=== PATIENT | male | born 1985 | race Caucasian/White ===

== ENCOUNTER 2018-07-14 01:46 | Inpatient (IN) | payer OTHER ==
[~2018-07-14] VITALS: Ht 182.9 cm; Wt 53.5 kg
[~2018-07-14 01:46] MED LIST: NOCURR
[2018-07-14] MEDS ORDERED: BUSP10TA23 PO (02:00)
[2018-07-14] MEDS ORDERED: OLAN10TA3 PO (02:00)
[2018-07-14] MEDS ORDERED: A20IH1 IH (02:00)
[2018-07-14] MEDS ORDERED: 0.9% SODIUM CHLORIDE 5 ML NEB SOLUTION NEB ONE (02:08)
[2018-07-14] MEDS ORDERED: MethylPREDNISolone SOD SUCC 125 MG/2 ML VIAL IVP ONE (02:15)
[2018-07-14] MEDS ORDERED: ALBUTEROL SULFATE 2.5 MG/0.5 ML NEB SOLUTION NEB ONE (02:15)
[2018-07-14] MEDS ORDERED: IPRATROPIUM BROMIDE 0.5 MG/2.5 ML NEB SOLUTION NEB ONE (02:15)
[2018-07-14 02:40] LABS: BASOPHILS % (AUTO) 0.5 % (0.0-2.0); EOSINOPHILS % (AUTO) 1.6 % (1.0-6.0); HEMATOCRIT 43.6 % (41-53); HEMOGLOBIN 14.6 g/dL (13.5-17.5); LYMPHOCYTES # (AUTO) 2.4 K/uL (1.0-4.8); LYMPHOCYTES % (AUTO) 30.4 % (22.0-44.0); MEAN CORPUSCULAR HEMOGLOBIN 33.8 pg (26.0-34.0); MEAN CORPUSCULAR HGB CONC 33.6 G/dL (31.0-37.0); MEAN CORPUSCULAR VOLUME 101 fL (80-100); MONOCYTES # (AUTO) 0.5 K/uL (0.1-1.0); NEUTROPHILS # (AUTO) 4.8 K/uL (1.8-7.7); NEUTROPHILS % (AUTO) 61.5 % (40.0-70.0); PLATELET COUNT (AUTO) 344 K/uL (150-450); RED BLOOD CELL COUNT(AUTO) 4.33 MIL/uL (4.50-5.90); RED CELL DISTRIBUTION WIDTH 13.8 % (11.5-14.5)
[2018-07-14 02:50] LABS: ANION GAP 9 mmol/L (8-16); CALCIUM, TOTAL 8.9 mg/dL (8.8-10.5); CARBON DIOXIDE 31 mmol/L (22-29); CHLORIDE 102 mmol/L (98-107); CREATININE 0.84 mg/dL (0.60-1.30); GLOMERULAR FILTR. RATE CALC > 60 mL/min (>60); GLUCOSE,RANDOM 139 mg/dL (70-110); POTASSIUM 3.4 mmol/L (3.5-5.1); SODIUM SERUM 142 mmol/L (136-145); UREA NITROGEN, BLOOD 10 mg/dL (7-18)
[2018-07-14 02:56] LABS: ALANINE AMINOTRANSFERASE 71 U/L (12-78); ALKALINE PHOSPHATASE 153 U/L (46-116); ASPARTATE AMINOTRANSFERASE 61 U/L (15-37); BILIRUBIN,TOTAL 0.4 mg/dL (0.1-1.0); TOTAL PROTEIN, SERUM 7.3 g/dL (6.4-8.2)
[2018-07-14 03:00] LABS: B-TYPE NATRIURETIC PEPTIDE 25 pg/mL (0-100)
[2018-07-14] MEDS ORDERED: LORazepam 2 MG/ML VIAL IVP ONE (03:00)
[2018-07-14 03:03] LABS: INFLUENZA TYPE A NEGATIVE FOR TYPE A (NEGATIVE); INFLUENZA TYPE B NEGATIVE FOR TYPE B (NEGATIVE)
[2018-07-14 03:11] LABS: APPEARANCE,URINE CLEAR (CLEAR); BILIRUBIN,URINE NEGATIVE (NEGATIVE); GLUCOSE, URINE (UA) NEGATIVE (NEGATIVE); KETONES,URINE NEGATIVE (NEGATIVE); LEUKOCYTE ESTERASE ,URINE NEGATIVE (NEGATIVE); NITRATE,URINE NEGATIVE (NEGATIVE); OCCULT BLOOD,URINE NEGATIVE (NEGATIVE); PH,URINE 6.5 (5.0-8.0); PROTEIN,URINE NEGATIVE (NEGATIVE); UROBILINOGEN,URINE 0.2 mg/dL (<=1.0)
[2018-07-14] MEDS ORDERED: ACETAMINOPHEN 325 MG TABLET PO PRN ×2 (03:15→13:45)
[2018-07-14] MEDS ORDERED: 0.9% SODIUM CHLORIDE 10 ML SYRINGE IVP PRN (03:15)
[2018-07-14] MEDS ORDERED: ONDANSETRON HCL 4 MG/2 ML VIAL IVP PRN ×2 (03:15→13:45)
[2018-07-14] MEDS ORDERED: POTASSIUM CHLORIDE 10% 40 MEQ/30 ML LIQUID UDCUP PO ONE ×2 (03:15→13:30)
[2018-07-14 03:39] LABS: AMPHET/METH SCREEN,URINE POSITIVE (NEGATIVE); BARBITURATE SCREEN, URINE POSITIVE (NEGATIVE); BENZODIAZEPINES SCREEN,URINE NEGATIVE (NEGATIVE); CANNABINOID SCREEN,URINE NEGATIVE (NEGATIVE); COCAINE SCREEN,URINE NEGATIVE (NEGATIVE); METHADONE SCREEN, URINE NEGATIVE (NEGATIVE); OPIATE SCREEN,URINE NEGATIVE (NEGATIVE)
[2018-07-14 03:40] LABS: PHENCYCLIDINE SCREEN,URINE NEGATIVE (NEGATIVE)
[2018-07-14 04:00] LABS: BACTERIA,URINE None Seen /HPF (None Seen); RBC,URINE 0-2 /HPF (0-2); SQUAMOUS EPITHELIAL CELL,UR Rare /LPF (None Seen); WBC,URINE 0-2 /HPF (0-5)
[2018-07-14 05:26] VITALS: BP 144/96
[2018-07-14] MEDS: ALBUTEROL SULFATE 2.5 MG/0.5 ML NEB SOLUTION NEB SCH ×4 (07:00→20:00)
[2018-07-14] MEDS: IPRATROPIUM BROMIDE 0.5 MG/2.5 ML NEB SOLUTION NEB SCH ×4 (07:00→20:00)
[2018-07-14 08:00] VITALS: BP 155/99
[2018-07-14] MEDS ORDERED: OXYGEN THERAPY IH SCH (08:00)
[2018-07-14] MEDS: BusPIRone HCL 10 MG TABLET PO SCH ×2 (10:26→20:36)
[2018-07-14 11:53] VITALS: BP 180/100
[2018-07-14] MEDS ORDERED: MAGNESIUM SULFATE 2 GM, MVI, ADULT NO.1 WITH VIT K 10 ML, THIAMINE HCL 100 MG, FOLIC AC... IV SCH ×5 (12:30)
[2018-07-14] MEDS: ChlordiazePOXIDE HCL 25 MG CAPSULE PO SCH ×3 (13:00→20:36)
[2018-07-14] MEDS: CloNIDine HCL 0.2 MG TABLET PO SCH ×3 (13:00→20:36)
[2018-07-14] MEDS ORDERED: HYDROCODONE/ACETAMINOPHEN 5-325 MG TABLET PO PRN (13:45)
[2018-07-14 14:15] LABS: INR 0.9 (0.9-1.1); PROTHROMBIN TIME 9.6 SEC (9.4-11.6)
[2018-07-14 14:18] LABS: ALANINE AMINOTRANSFERASE 81 U/L (12-78); ALKALINE PHOSPHATASE 160 U/L (46-116); ANION GAP 7 mmol/L (8-16); ASPARTATE AMINOTRANSFERASE 64 U/L (15-37); BILIRUBIN,TOTAL 0.6 mg/dL (0.1-1.0); CALCIUM, TOTAL 9.4 mg/dL (8.8-10.5); CARBON DIOXIDE 30 mmol/L (22-29); CHLORIDE 99 mmol/L (98-107); CREATININE 0.89 mg/dL (0.60-1.30); GLOMERULAR FILTR. RATE CALC > 60 mL/min (>60); GLUCOSE,RANDOM 170 mg/dL (70-110); POTASSIUM 4.5 mmol/L (3.5-5.1); SODIUM SERUM 136 mmol/L (136-145); TOTAL PROTEIN, SERUM 7.8 g/dL (6.4-8.2); UREA NITROGEN, BLOOD 9 mg/dL (7-18)
[2018-07-14 14:24] LABS: BASOPHILS % (AUTO) 0.1 % (0.0-2.0); EOSINOPHILS % (AUTO) 0 % (1.0-6.0); HEMATOCRIT 43.3 % (41-53); HEMOGLOBIN 14.6 g/dL (13.5-17.5); LYMPHOCYTES # (AUTO) 0.2 K/uL (1.0-4.8); LYMPHOCYTES % (AUTO) 2.7 % (22.0-44.0); MEAN CORPUSCULAR HEMOGLOBIN 34.1 pg (26.0-34.0); MEAN CORPUSCULAR HGB CONC 33.8 G/dL (31.0-37.0); MEAN CORPUSCULAR VOLUME 101 fL (80-100); MONOCYTES # (AUTO) 0.1 K/uL (0.1-1.0); MONOCYTES % (AUTO) 1.5 % (2.0-9.0); NEUTROPHILS # (AUTO) 5.9 K/uL (1.8-7.7); NEUTROPHILS % (AUTO) 95.7 % (40.0-70.0); PLATELET COUNT (AUTO) 316 K/uL (150-450); RED BLOOD CELL COUNT(AUTO) 4.29 MIL/uL (4.50-5.90); RED CELL DISTRIBUTION WIDTH 13.6 % (11.5-14.5)
[2018-07-14] MEDS: ENOXAPARIN SODIUM 30 MG/0.3 ML PF SYRINGE SQ SCH (14:44)
[2018-07-14] MEDS: LISINOPRIL 5 MG TABLET PO SCH (14:44)
[2018-07-14] MEDS: METOPROLOL TARTRATE 25 MG TABLET PO SCH ×2 (14:44→20:36)
[2018-07-14] MEDS: FAMOTIDINE 20 MG TABLET PO SCH (14:44)
[2018-07-14 16:08] VITALS: BP 158/101
[2018-07-14] MEDS: VERAPAMIL HCL 80 MG TABLET PO SCH ×2 (16:23→20:36)
[2018-07-14 18:34] VITALS: BP 139/99
[2018-07-14 20:08] VITALS: BP 124/78
[2018-07-14] MEDS: OLANZapine 10 MG TABLET PO SCH (20:36)
[2018-07-15 00:49] VITALS: BP 121/72
[2018-07-15] MEDS: IPRATROPIUM BROMIDE 0.5 MG/2.5 ML NEB SOLUTION NEB SCH ×4 (01:53→20:00)
[2018-07-15] MEDS: ALBUTEROL SULFATE 2.5 MG/0.5 ML NEB SOLUTION NEB SCH ×4 (01:53→20:00)
[2018-07-15 03:41] VITALS: BP 107/65
[2018-07-15 07:46] VITALS: BP 140/72
[2018-07-15] MEDS: LISINOPRIL 5 MG TABLET PO SCH (08:10)
[2018-07-15] MEDS: CloNIDine HCL 0.2 MG TABLET PO SCH ×3 (08:10→20:04)
[2018-07-15] MEDS: METOPROLOL TARTRATE 25 MG TABLET PO SCH ×2 (08:10→20:04)
[2018-07-15] MEDS: VERAPAMIL HCL 80 MG TABLET PO SCH ×2 (08:10→16:00)
[2018-07-15] MEDS: ChlordiazePOXIDE HCL 25 MG CAPSULE PO SCH ×4 (08:10→20:04)
[2018-07-15] MEDS: FAMOTIDINE 20 MG TABLET PO SCH (08:10)
[2018-07-15] MEDS: BusPIRone HCL 10 MG TABLET PO SCH ×2 (08:10→20:04)
[2018-07-15] MEDS: ENOXAPARIN SODIUM 30 MG/0.3 ML PF SYRINGE SQ SCH (08:11)
[2018-07-15 11:51] VITALS: BP 111/75
[2018-07-15 16:56] VITALS: BP 124/80
[2018-07-15 19:10] VITALS: BP 126/79
[2018-07-15] MEDS: OLANZapine 10 MG TABLET PO SCH (20:04)
[2018-07-16 00:10] VITALS: BP 115/70
[2018-07-16] MEDS: VERAPAMIL HCL 80 MG TABLET PO SCH ×2 (00:15→09:03)
[2018-07-16] MEDS: IPRATROPIUM BROMIDE 0.5 MG/2.5 ML NEB SOLUTION NEB SCH ×3 (02:00→14:00)
[2018-07-16] MEDS: ALBUTEROL SULFATE 2.5 MG/0.5 ML NEB SOLUTION NEB SCH ×3 (02:00→14:00)
[2018-07-16 04:18] VITALS: BP 107/70
[2018-07-16 08:09] VITALS: BP 133/90
[2018-07-16] MEDS: FAMOTIDINE 20 MG TABLET PO SCH (09:04)
[2018-07-16] MEDS: ChlordiazePOXIDE HCL 25 MG CAPSULE PO SCH ×2 (09:04→13:15)
[2018-07-16] MEDS: LISINOPRIL 5 MG TABLET PO SCH (09:04)
[2018-07-16] MEDS: CloNIDine HCL 0.2 MG TABLET PO SCH (09:04)
[2018-07-16] MEDS: METOPROLOL TARTRATE 25 MG TABLET PO SCH (09:05)
[2018-07-16] MEDS: ENOXAPARIN SODIUM 30 MG/0.3 ML PF SYRINGE SQ SCH (09:05)
[2018-07-16] MEDS: BusPIRone HCL 10 MG TABLET PO SCH (09:07)
[2018-07-16 11:50] VITALS: BP 101/58
== END 2018-07-16 13:25 | disposition left against medical advice (07) | DRG 140 ==
LOC: EMS 01:46 → 5N 03:03
PROVIDERS: ADMIT Internal Medicine; ATTEND Internal Medicine
PROC: 5A09357 Assistance with Respiratory Ventilation, Less than 24 Consecutive Hours, Continuous Positive Airway Pressure (ICD-10-PCS; principal; 2018-07-14)
DX: J44.1 Chronic obstructive pulmonary disease with (acute) exacerbation (principal); F25.9 Schizoaffective disorder, unspecified; K70.30 Alcoholic cirrhosis of liver without ascites; I47.1 Supraventricular tachycardia; F10.239 Alcohol dependence with withdrawal, unspecified; F19.10 Other psychoactive substance abuse, uncomplicated; E87.6 Hypokalemia; F17.210 Nicotine dependence, cigarettes, uncomplicated; F31.9 Bipolar disorder, unspecified; F41.9 Anxiety disorder, unspecified; I10 Essential (primary) hypertension; Z59.0 Homelessness; Z91.19 Patient's noncompliance with other medical treatment and regimen; Z88.8 Allergy status to other drugs, medicaments and biological substances
CPT/HCPCS: 87040; 87081; 87804; 93005; 94640; 96374; 96375; G0378; G0480; J1650; J2060; J2930; J3411; J3475; J3490; J7030

== ENCOUNTER 2018-08-01 12:14 | Inpatient (IN) | payer MEDICAID, OTHER ==
[~2018-08-01] VITALS: Ht 175.3 cm; Wt 55.8 kg
[~2018-08-01 12:14] MED LIST changes: +A20IH1 IH; +BUSP10TA23 PO; -NOCURR; +OLAN10TA3 PO
[2018-08-01] MEDS ORDERED: LORazepam 2 MG/ML VIAL IM ONE (14:00)
[2018-08-01 14:41] LABS: BASOPHILS % (AUTO) 0.4 % (0.0-2.0); EOSINOPHILS % (AUTO) 1.1 % (1.0-6.0); HEMATOCRIT 42.1 % (41-53); HEMOGLOBIN 14.1 g/dL (13.5-17.5); LYMPHOCYTES % (AUTO) 9.9 % (22.0-44.0); MEAN CORPUSCULAR HEMOGLOBIN 33.5 pg (26.0-34.0); MEAN CORPUSCULAR HGB CONC 33.5 G/dL (31.0-37.0); MEAN CORPUSCULAR VOLUME 100 fL (80-100); MONOCYTES # (AUTO) 0.8 K/uL (0.1-1.0); MONOCYTES % (AUTO) 7.5 % (2.0-9.0); NEUTROPHILS # (AUTO) 8.4 K/uL (1.8-7.7); NEUTROPHILS % (AUTO) 81.1 % (40.0-70.0); PLATELET COUNT (AUTO) 318 K/uL (150-450); RED CELL DISTRIBUTION WIDTH 14.1 % (11.5-14.5)
[2018-08-01 14:43] LABS: ANION GAP 10 mmol/L (8-16); CALCIUM, TOTAL 8.5 mg/dL (8.8-10.5); CARBON DIOXIDE 28 mmol/L (22-29); CHLORIDE 105 mmol/L (98-107); CREATININE 0.69 mg/dL (0.60-1.30); GLOMERULAR FILTR. RATE CALC > 60 mL/min (>60); GLUCOSE,RANDOM 86 mg/dL (70-110); POTASSIUM 3.5 mmol/L (3.5-5.1); SODIUM SERUM 143 mmol/L (136-145); UREA NITROGEN, BLOOD 8 mg/dL (7-18)
[2018-08-01 14:51] LABS: ALANINE AMINOTRANSFERASE 90 U/L (12-78); ALBUMIN 3.6 g/dL (3.4-5.0); ALKALINE PHOSPHATASE 156 U/L (46-116); ASPARTATE AMINOTRANSFERASE 79 U/L (15-37); BILIRUBIN,TOTAL 0.5 mg/dL (0.1-1.0); TOTAL PROTEIN, SERUM 7.1 g/dL (6.4-8.2)
[2018-08-01 17:00] VITALS: BP 173/116
[2018-08-01] MEDS ORDERED: PNEUMOCOCCAL VACCINE POLYVALENT 0.5 ML VIAL [PPSV23] IM ONE (18:00)
[2018-08-01 18:02] VITALS: BP 144/109
[2018-08-01] MEDS: LORazepam 2 MG TABLET PO PRN (18:33)
[2018-08-01] MEDS: OLANZapine 5 MG RAPDIS TABLET PO PRN (18:33)
[2018-08-01] MEDS ORDERED: ALBUTEROL SULFATE 2.5 MG/0.5 ML NEB SOLUTION NEB PRN (19:00)
[2018-08-01] MEDS ORDERED: HYDROCORTISONE 2.5% 30 GM CREAM TP PRN (19:00)
[2018-08-01] MEDS ORDERED: ALBUTEROL SULFATE HFA 90 MCG/PUFF 8 GM INHALER IH PRN (19:00)
[2018-08-01 19:09] VITALS: BP 157/110
[2018-08-01] MEDS ORDERED: HydrALAZINE HCL 10 MG TABLET PO PRN (19:15)
[2018-08-01] MEDS: CloNIDine HCL 0.1 MG TABLET PO PRN (19:58)
[2018-08-01 20:15] VITALS: BP 171/118
[2018-08-01 21:00] VITALS: BP 184/107
[2018-08-01] MEDS: ZOLPIDEM TARTRATE 10 MG TABLET PO PRN (21:09)
[2018-08-01 22:02] VITALS: BP 165/109
[2018-08-02] VITALS (8 sets, daily range): BP systolic 136–167; BP diastolic 92–123
[2018-08-02] MEDS: LORazepam 2 MG TABLET PO PRN ×3 (06:18→20:59)
[2018-08-02 08:55] LABS: BASOPHILS % (AUTO) 0.9 % (0.0-2.0); EOSINOPHILS % (AUTO) 0.8 % (1.0-6.0); HEMATOCRIT 45.7 % (41-53); HEMOGLOBIN 15.4 g/dL (13.5-17.5); LYMPHOCYTES # (AUTO) 0.7 K/uL (1.0-4.8); LYMPHOCYTES % (AUTO) 9.4 % (22.0-44.0); MEAN CORPUSCULAR HEMOGLOBIN 34.1 pg (26.0-34.0); MEAN CORPUSCULAR HGB CONC 33.7 G/dL (31.0-37.0); MEAN CORPUSCULAR VOLUME 101 fL (80-100); MONOCYTES # (AUTO) 0.7 K/uL (0.1-1.0); NEUTROPHILS # (AUTO) 6.1 K/uL (1.8-7.7); NEUTROPHILS % (AUTO) 79.9 % (40.0-70.0); PLATELET COUNT (AUTO) 309 K/uL (150-450); RED BLOOD CELL COUNT(AUTO) 4.52 MIL/uL (4.50-5.90); RED CELL DISTRIBUTION WIDTH 13.9 % (11.5-14.5)
[2018-08-02 09:17] LABS: ALANINE AMINOTRANSFERASE 79 U/L (12-78); ALBUMIN 3.5 g/dL (3.4-5.0); ALKALINE PHOSPHATASE 177 U/L (46-116); ANION GAP 10 mmol/L (8-16); ASPARTATE AMINOTRANSFERASE 64 U/L (15-37); BILIRUBIN,TOTAL 1.2 mg/dL (0.1-1.0); CALCIUM, TOTAL 9.2 mg/dL (8.8-10.5); CARBON DIOXIDE 29 mmol/L (22-29); CHLORIDE 100 mmol/L (98-107); CHOL/HDL RATIO 1.6 (4.2-7.3); CHOLESTEROL 173 mg/dL (131-200); CREATININE 0.86 mg/dL (0.60-1.30); GLOMERULAR FILTR. RATE CALC > 60 mL/min (>60); GLUCOSE,RANDOM 152 mg/dL (70-110); HDL CHOLESTEROL 105 mg/dL (40-60); LDL CHOL (CALC.) 59 mg/dL (0-130); POTASSIUM 3.4 mmol/L (3.5-5.1); SODIUM SERUM 139 mmol/L (136-145); TOTAL PROTEIN, SERUM 7.2 g/dL (6.4-8.2); TRIGLYCERIDES 45 mg/dL (15-150); UREA NITROGEN, BLOOD 14 mg/dL (7-18)
[2018-08-02] MEDS: HydrALAZINE HCL 25 MG TABLET PO PRN ×2 (12:22→19:57)
[2018-08-02] MEDS ORDERED: AmLODIPine BESYLATE 5 MG TABLET PO ONE (14:00)
[2018-08-02] MEDS: METOPROLOL TARTRATE 25 MG TABLET PO SCH (16:20)
[2018-08-02] MEDS: BusPIRone HCL 10 MG TABLET PO SCH (16:20)
[2018-08-02] MEDS: CloNIDine HCL 0.1 MG TABLET PO PRN (16:21)
[2018-08-02] MEDS: OLANZapine 10 MG TABLET PO SCH (20:59)
[2018-08-02] MEDS: ZOLPIDEM TARTRATE 10 MG TABLET PO PRN (20:59)
[2018-08-03 06:06] VITALS: BP 142/91
[2018-08-03 06:07] VITALS: BP 142/91
[2018-08-03 08:24] VITALS: BP 144/79
[2018-08-03 08:25] VITALS: BP 144/79
[2018-08-03 08:39] LABS: ANION GAP 11 mmol/L (8-16); CALCIUM, TOTAL 9.7 mg/dL (8.8-10.5); CARBON DIOXIDE 27 mmol/L (22-29); CHLORIDE 100 mmol/L (98-107); CREATINE KINASE, TOTAL ONLY 186 U/L (39-308); CREATININE 0.73 mg/dL (0.60-1.30); FREE T4 (FREE THYROXINE) 0.76 ng/dL (0.76-1.46); GLOMERULAR FILTR. RATE CALC > 60 mL/min (>60); GLUCOSE,RANDOM 87 mg/dL (70-110); POTASSIUM 5.1 mmol/L (3.5-5.1); SODIUM SERUM 138 mmol/L (136-145); UREA NITROGEN, BLOOD 15 mg/dL (7-18)
[2018-08-03] MEDS: AmLODIPine BESYLATE 5 MG TABLET PO SCH (08:47)
[2018-08-03] MEDS: BusPIRone HCL 10 MG TABLET PO SCH ×2 (08:47→16:47)
[2018-08-03] MEDS: METOPROLOL TARTRATE 25 MG TABLET PO SCH ×2 (08:47→16:47)
[2018-08-03 16:00] VITALS: BP 134/90
[2018-08-03 16:08] VITALS: BP 134/90
[2018-08-03] MEDS: LORazepam 2 MG TABLET PO PRN (16:47)
[2018-08-03] MEDS: OLANZapine 10 MG TABLET PO SCH (20:46)
[2018-08-03] MEDS: ZOLPIDEM TARTRATE 10 MG TABLET PO PRN (20:46)
[2018-08-04 06:45] VITALS: BP 111/77
[2018-08-04 08:27] VITALS: BP 131/75
[2018-08-04] MEDS: THIAMINE HCL 100 MG TABLET PO SCH (08:52)
[2018-08-04] MEDS: BusPIRone HCL 10 MG TABLET PO SCH ×2 (08:52→17:11)
[2018-08-04] MEDS: FOLIC ACID 1 MG TABLET PO SCH (08:52)
[2018-08-04] MEDS: AmLODIPine BESYLATE 5 MG TABLET PO SCH (08:52)
[2018-08-04] MEDS: METOPROLOL TARTRATE 25 MG TABLET PO SCH ×2 (08:52→17:11)
[2018-08-04] MEDS: MULTIVITAMINS WITH MINERALS, THERAPEUTIC TABLET PO SCH (08:53)
[2018-08-04 09:10] VITALS: BP 126/94
[2018-08-04] MEDS: LORazepam 2 MG TABLET PO PRN (14:31)
[2018-08-04 16:33] VITALS: BP 139/89
[2018-08-04 16:35] VITALS: BP 139/89
[2018-08-04] MEDS: OLANZapine 5 MG RAPDIS TABLET PO PRN (17:11)
[2018-08-04] MEDS: OLANZapine 10 MG TABLET PO SCH (21:08)
[2018-08-04] MEDS: ZOLPIDEM TARTRATE 10 MG TABLET PO PRN (21:08)
[2018-08-05 08:02] VITALS: BP 139/83
[2018-08-05] MEDS: FOLIC ACID 1 MG TABLET PO SCH (09:07)
[2018-08-05] MEDS: BusPIRone HCL 10 MG TABLET PO SCH ×2 (09:07→17:03)
[2018-08-05] MEDS: AmLODIPine BESYLATE 5 MG TABLET PO SCH (09:08)
[2018-08-05] MEDS: THIAMINE HCL 100 MG TABLET PO SCH (09:08)
[2018-08-05] MEDS: MULTIVITAMINS WITH MINERALS, THERAPEUTIC TABLET PO SCH (09:08)
[2018-08-05] MEDS: METOPROLOL TARTRATE 25 MG TABLET PO SCH ×2 (09:08→17:03)
[2018-08-05 09:46] VITALS: BP 139/83
[2018-08-05] MEDS: LORazepam 2 MG TABLET PO PRN (13:58)
[2018-08-05 16:00] VITALS: BP 138/97
[2018-08-05 17:00] VITALS: BP 138/97
[2018-08-05] MEDS: OLANZapine 5 MG RAPDIS TABLET PO PRN (17:04)
[2018-08-05] MEDS: OLANZapine 10 MG TABLET PO SCH (20:10)
[2018-08-05] MEDS: ZOLPIDEM TARTRATE 10 MG TABLET PO PRN (20:10)
[2018-08-06 06:09] VITALS: BP 123/89
[2018-08-06 09:04] VITALS: BP 126/82
[2018-08-06 09:11] VITALS: BP 126/82
[2018-08-06] MEDS: BusPIRone HCL 10 MG TABLET PO SCH ×2 (09:26→17:15)
[2018-08-06] MEDS: FOLIC ACID 1 MG TABLET PO SCH (09:27)
[2018-08-06] MEDS: MULTIVITAMINS WITH MINERALS, THERAPEUTIC TABLET PO SCH (09:27)
[2018-08-06] MEDS: METOPROLOL TARTRATE 25 MG TABLET PO SCH ×2 (09:27→16:19)
[2018-08-06] MEDS: THIAMINE HCL 100 MG TABLET PO SCH (09:27)
[2018-08-06] MEDS: AmLODIPine BESYLATE 5 MG TABLET PO SCH (09:27)
[2018-08-06 16:00] VITALS: BP 133/88
[2018-08-06] MEDS: OLANZapine 10 MG TABLET PO SCH (22:01)
[2018-08-06] MEDS: ZOLPIDEM TARTRATE 10 MG TABLET PO PRN (22:01)
[2018-08-07 06:22] VITALS: BP 123/89
[2018-08-07] MEDS: THIAMINE HCL 100 MG TABLET PO SCH (08:43)
[2018-08-07] MEDS: BusPIRone HCL 10 MG TABLET PO SCH ×2 (08:43→16:51)
[2018-08-07] MEDS: AmLODIPine BESYLATE 5 MG TABLET PO SCH (08:43)
[2018-08-07] MEDS: MULTIVITAMINS WITH MINERALS, THERAPEUTIC TABLET PO SCH (08:44)
[2018-08-07] MEDS: FOLIC ACID 1 MG TABLET PO SCH (08:44)
[2018-08-07] MEDS: METOPROLOL TARTRATE 25 MG TABLET PO SCH ×2 (08:45→16:51)
[2018-08-07 09:35] VITALS: BP 115/61
[2018-08-07 16:00] VITALS: BP 108/80
[2018-08-07] MEDS: LORazepam 2 MG TABLET PO PRN (16:51)
[2018-08-07] MEDS: OLANZapine 10 MG TABLET PO SCH (21:15)
[2018-08-07] MEDS: ZOLPIDEM TARTRATE 10 MG TABLET PO PRN (21:15)
[2018-08-08] MEDS: LORazepam 2 MG TABLET PO PRN ×2 (01:14→17:00)
[2018-08-08 01:15] VITALS: BP 122/70
[2018-08-08] MEDS: METOPROLOL TARTRATE 25 MG TABLET PO SCH ×2 (09:21→17:00)
[2018-08-08] MEDS: THIAMINE HCL 100 MG TABLET PO SCH (09:21)
[2018-08-08] MEDS: BusPIRone HCL 10 MG TABLET PO SCH ×2 (09:22→17:00)
[2018-08-08] MEDS: AmLODIPine BESYLATE 5 MG TABLET PO SCH (09:22)
[2018-08-08] MEDS: FOLIC ACID 1 MG TABLET PO SCH (09:22)
[2018-08-08] MEDS: MULTIVITAMINS WITH MINERALS, THERAPEUTIC TABLET PO SCH (09:22)
[2018-08-08 09:55] VITALS: BP 125/77
[2018-08-08 16:00] VITALS: BP 121/90
[2018-08-08] MEDS: ZOLPIDEM TARTRATE 10 MG TABLET PO PRN (20:49)
[2018-08-08] MEDS: OLANZapine 10 MG TABLET PO SCH (20:50)
[2018-08-09 06:03] VITALS: BP 124/86
[2018-08-09 09:29] VITALS: BP 126/89
[2018-08-09] MEDS: BusPIRone HCL 10 MG TABLET PO SCH ×2 (09:50→16:55)
[2018-08-09] MEDS: METOPROLOL TARTRATE 25 MG TABLET PO SCH ×2 (09:50→16:55)
[2018-08-09] MEDS: FOLIC ACID 1 MG TABLET PO SCH (09:50)
[2018-08-09] MEDS: MULTIVITAMINS WITH MINERALS, THERAPEUTIC TABLET PO SCH (09:51)
[2018-08-09] MEDS: AmLODIPine BESYLATE 5 MG TABLET PO SCH (09:51)
[2018-08-09] MEDS: THIAMINE HCL 100 MG TABLET PO SCH (09:51)
[2018-08-09] MEDS: OLANZapine 5 MG RAPDIS TABLET PO PRN (14:35)
[2018-08-09] MEDS: LORazepam 2 MG TABLET PO PRN (14:35)
[2018-08-09 16:48] VITALS: BP 119/71
[2018-08-09] MEDS: OLANZapine 10 MG TABLET PO SCH (20:44)
[2018-08-09] MEDS: PANTOPRAZOLE SODIUM 40 MG DR TABLET PO SCH (20:44)
[2018-08-09] MEDS: ZOLPIDEM TARTRATE 10 MG TABLET PO PRN (20:45)
[2018-08-10 00:25] VITALS: BP 128/85
[2018-08-10 08:19] VITALS: BP 112/67
[2018-08-10] MEDS: PANTOPRAZOLE SODIUM 40 MG DR TABLET PO SCH (09:17)
[2018-08-10] MEDS: METOPROLOL TARTRATE 25 MG TABLET PO SCH ×2 (09:17→16:44)
[2018-08-10] MEDS: THIAMINE HCL 100 MG TABLET PO SCH (09:17)
[2018-08-10] MEDS: MULTIVITAMINS WITH MINERALS, THERAPEUTIC TABLET PO SCH (09:17)
[2018-08-10] MEDS: AmLODIPine BESYLATE 5 MG TABLET PO SCH (09:17)
[2018-08-10] MEDS: FOLIC ACID 1 MG TABLET PO SCH (09:17)
[2018-08-10] MEDS: BusPIRone HCL 10 MG TABLET PO SCH ×2 (09:17→16:44)
[2018-08-10] MEDS: LORazepam 2 MG TABLET PO PRN ×2 (11:26→21:36)
[2018-08-10 17:34] VITALS: BP 122/75
[2018-08-10] MEDS ORDERED: IBUPROFEN 600 MG TABLET PO PRN (20:30)
[2018-08-10] MEDS ORDERED: ACETAMINOPHEN 325 MG TABLET PO PRN (20:30)
[2018-08-10] MEDS: OLANZapine 10 MG TABLET PO SCH (20:46)
[2018-08-10] MEDS: ZOLPIDEM TARTRATE 10 MG TABLET PO PRN (23:54)
[2018-08-11 00:05] VITALS: BP 109/74
[2018-08-11 08:00] VITALS: BP 133/74
[2018-08-11] MEDS: FOLIC ACID 1 MG TABLET PO SCH (09:17)
[2018-08-11] MEDS: METOPROLOL TARTRATE 25 MG TABLET PO SCH ×2 (09:17→16:57)
[2018-08-11] MEDS: BusPIRone HCL 10 MG TABLET PO SCH ×2 (09:17→16:57)
[2018-08-11] MEDS: AmLODIPine BESYLATE 5 MG TABLET PO SCH (09:17)
[2018-08-11] MEDS: MULTIVITAMINS WITH MINERALS, THERAPEUTIC TABLET PO SCH (09:17)
[2018-08-11] MEDS: PANTOPRAZOLE SODIUM 40 MG DR TABLET PO SCH (09:17)
[2018-08-11] MEDS: THIAMINE HCL 100 MG TABLET PO SCH (09:22)
[2018-08-11] MEDS: LORazepam 2 MG TABLET PO PRN ×2 (10:34→17:57)
[2018-08-11 16:33] VITALS: BP 117/69
[2018-08-11] MEDS: OLANZapine 10 MG TABLET PO SCH (20:38)
[2018-08-11] MEDS: ZOLPIDEM TARTRATE 10 MG TABLET PO PRN (21:24)
[2018-08-12 00:20] VITALS: BP 109/73
[2018-08-12] MEDS: LORazepam 2 MG TABLET PO PRN (00:21)
[2018-08-12] MEDS: AmLODIPine BESYLATE 5 MG TABLET PO SCH (08:18)
[2018-08-12] MEDS: MULTIVITAMINS WITH MINERALS, THERAPEUTIC TABLET PO SCH (08:18)
[2018-08-12] MEDS: PANTOPRAZOLE SODIUM 40 MG DR TABLET PO SCH (08:18)
[2018-08-12] MEDS: BusPIRone HCL 10 MG TABLET PO SCH ×2 (08:18→16:23)
[2018-08-12] MEDS: THIAMINE HCL 100 MG TABLET PO SCH (08:18)
[2018-08-12] MEDS: FOLIC ACID 1 MG TABLET PO SCH (08:18)
[2018-08-12] MEDS: METOPROLOL TARTRATE 25 MG TABLET PO SCH ×2 (08:19→16:24)
[2018-08-12 09:27] VITALS: BP 116/73
[2018-08-12 17:02] VITALS: BP 143/97
[2018-08-12] MEDS: OLANZapine 10 MG TABLET PO SCH (20:17)
[2018-08-12] MEDS: ZOLPIDEM TARTRATE 10 MG TABLET PO PRN (20:32)
[2018-08-13] MEDS ORDERED: FOLI1TAB15 PO (01:36)
[2018-08-13] MEDS ORDERED: AMLO-511 PO (01:39)
[2018-08-13] MEDS ORDERED: METO25 PO (01:39)
[2018-08-13] MEDS ORDERED: PANT40TA25 PO (01:42)
[2018-08-13] MEDS ORDERED: THIA100T67 PO (01:44)
[2018-08-13] MEDS ORDERED: MULT-1203 PO (01:44)
[2018-08-13 05:24] VITALS: BP 118/81
== END 2018-08-13 07:15 | disposition home or self-care (01) | DRG 750 ==
LOC: EMS 12:14 → B3A 15:49
PROVIDERS: ADMIT Psychiatry & Neurology Psychiatry; ATTEND Psychiatry & Neurology Psychiatry
DX: F20.0 Paranoid schizophrenia (principal); M41.9 Scoliosis, unspecified; R45.851 Suicidal ideations; F15.90 Other stimulant use, unspecified, uncomplicated; J45.909 Unspecified asthma, uncomplicated; L30.9 Dermatitis, unspecified; Y90.7 Blood alcohol level of 200-239 mg/100 ml; M54.9 Dorsalgia, unspecified; Z87.891 Personal history of nicotine dependence; Z88.8 Allergy status to other drugs, medicaments and biological substances
CPT/HCPCS: 80074; 84439; 84443; 87081; G0480; J2060; J3535

== ENCOUNTER 2018-09-17 12:10 | Emergency (ER) | payer OTHER ==
[~2018-09-17] VITALS: Ht 172.7 cm; Wt 59.0 kg
[~2018-09-17 12:10] MED LIST changes: +AMLO-511 PO; +FOLI1TAB15 PO; +METO25 PO; +MULT-1203 PO; +PANT40TA25 PO; +PRED20 PO; +THIA100T67 PO; +[UNRECOGNIZED DRUG - CODE] PO
[2018-09-17] MEDS ORDERED: GUAIF600 PO (12:23)
[2018-09-17] MEDS ORDERED: LORazepam 2 MG/ML VIAL IVP ONE ×2 (12:30→12:45)
[2018-09-17] MEDS ORDERED: ALBUTEROL SULFATE 5 MG/ML 20 ML NEB SOLN [BULK] NEB ONE (12:30)
[2018-09-17] MEDS ORDERED: MethylPREDNISolone SOD SUCC 125 MG/2 ML VIAL IVP ONE (12:30)
[2018-09-17] MEDS ORDERED: IPRATROPIUM BROMIDE 0.5 MG/2.5 ML NEB SOLUTION NEB ONE (12:30)
[2018-09-17 12:53] LABS: BASOPHILS % (AUTO) 0.3 % (0.0-2.0); EOSINOPHILS % (AUTO) 2.1 % (1.0-6.0); HEMATOCRIT 45.9 % (41-53); HEMOGLOBIN 15.3 g/dL (13.5-17.5); LYMPHOCYTES # (AUTO) 1.9 K/uL (1.0-4.8); LYMPHOCYTES % (AUTO) 18.3 % (22.0-44.0); MEAN CORPUSCULAR HGB CONC 33.3 G/dL (31.0-37.0); MEAN CORPUSCULAR VOLUME 99 fL (80-100); MONOCYTES # (AUTO) 0.6 K/uL (0.1-1.0); MONOCYTES % (AUTO) 6.3 % (2.0-9.0); NEUTROPHILS # (AUTO) 7.4 K/uL (1.8-7.7); PLATELET COUNT (AUTO) 288 K/uL (150-450); RED BLOOD CELL COUNT(AUTO) 4.64 MIL/uL (4.50-5.90); RED CELL DISTRIBUTION WIDTH 13.9 % (11.5-14.5)
[2018-09-17 13:03] LABS: ANION GAP 7 mmol/L (8-16); CALCIUM, TOTAL 8.4 mg/dL (8.8-10.5); CARBON DIOXIDE 30 mmol/L (22-29); CHLORIDE 105 mmol/L (98-107); GLOMERULAR FILTR. RATE CALC > 60 mL/min (>60); GLUCOSE,RANDOM 73 mg/dL (70-110); POTASSIUM 3.8 mmol/L (3.5-5.1); SODIUM SERUM 142 mmol/L (136-145); UREA NITROGEN, BLOOD 15 mg/dL (7-18)
[2018-09-17 13:10] LABS: ALANINE AMINOTRANSFERASE 168 U/L (12-78); ALBUMIN 3.1 g/dL (3.4-5.0); ALKALINE PHOSPHATASE 103 U/L (46-116); ASPARTATE AMINOTRANSFERASE 49 U/L (15-37); TOTAL PROTEIN, SERUM 6.6 g/dL (6.4-8.2)
[2018-09-17 13:34] LABS: AMPHET/METH SCREEN,URINE NEGATIVE (NEGATIVE); BARBITURATE SCREEN, URINE NEGATIVE (NEGATIVE); BENZODIAZEPINES SCREEN,URINE NEGATIVE (NEGATIVE); CANNABINOID SCREEN,URINE NEGATIVE (NEGATIVE); COCAINE SCREEN,URINE NEGATIVE (NEGATIVE); METHADONE SCREEN, URINE NEGATIVE (NEGATIVE); OPIATE SCREEN,URINE NEGATIVE (NEGATIVE)
[2018-09-17 13:35] LABS: PHENCYCLIDINE SCREEN,URINE NEGATIVE (NEGATIVE)
[2018-09-17] MEDS ORDERED: ALBUTEROL SULFATE HFA 90 MCG/PUFF 8 GM INHALER IH ONE (14:00)
[2018-09-17 14:30] VITALS: BP 120/69
== END 2018-09-17 14:38 | disposition home or self-care (01) ==
LOC: EMS 12:10
DX: J44.1 Chronic obstructive pulmonary disease with (acute) exacerbation (principal); F10.229 Alcohol dependence with intoxication, unspecified; K70.30 Alcoholic cirrhosis of liver without ascites; F20.9 Schizophrenia, unspecified; I10 Essential (primary) hypertension; F15.90 Other stimulant use, unspecified, uncomplicated; F17.210 Nicotine dependence, cigarettes, uncomplicated; Z88.8 Allergy status to other drugs, medicaments and biological substances; Z88.5 Allergy status to narcotic agent; Z79.899 Other long term (current) drug therapy; Y90.2 Blood alcohol level of 40-59 mg/100 ml
CPT/HCPCS: 36415; 71045; 80053; 80307; 85025; 94640; 94644; 96374; 96375; 99285; 99406; G0480; J2060; J2930; 94060; J3535

== ENCOUNTER 2019-04-18 18:38 | Inpatient (IN) | payer OTHER ==
[~2019-04-18] VITALS: Ht 177.8 cm; Wt 55.7 kg
[~2019-04-18 18:38] MED LIST changes: -A20IH1 IH; +A20IH1 NEB; -AMLO-511 PO; -FOLI1TAB15 PO; -METO25 PO; -OLAN10TA3 PO; -PANT40TA25 PO; -PRED20 PO; -THIA100T67 PO; -[UNRECOGNIZED DRUG - CODE] PO
[2019-04-18] MEDS ORDERED: MethylPREDNISolone SOD SUCC 125 MG/2 ML VIAL IVP ONE (19:00)
[2019-04-18] MEDS ORDERED: ALBUTEROL SULFATE 5 MG/ML 20 ML NEB SOLN [BULK] NEB ONE (19:00)
[2019-04-18] MEDS ORDERED: SODIUM CHLORIDE 0.9% 1,000 ML IV ONE (19:00)
[2019-04-18] MEDS ORDERED: IPRATROPIUM BROMIDE 0.5 MG/2.5 ML NEB SOLUTION NEB ONE (19:00)
[2019-04-18 19:26] LABS: BASOPHILS % (AUTO) 0.2 % (0.0-2.0); EOSINOPHILS % (AUTO) 1.4 % (1.0-6.0); HEMATOCRIT 46.1 % (41-53); HEMOGLOBIN 15.4 g/dL (13.5-17.5); LYMPHOCYTES % (AUTO) 14.3 % (22.0-44.0); MEAN CORPUSCULAR HEMOGLOBIN 31.8 pg (26.0-34.0); MEAN CORPUSCULAR HGB CONC 33.4 G/dL (31.0-37.0); MEAN CORPUSCULAR VOLUME 95 fL (80-100); MONOCYTES # (AUTO) 0.7 K/uL (0.1-1.0); MONOCYTES % (AUTO) 5.1 % (2.0-9.0); NEUTROPHILS # (AUTO) 11.1 K/uL (1.8-7.7); PLATELET COUNT (AUTO) 526 K/uL (150-450); RED BLOOD CELL COUNT(AUTO) 4.85 MIL/uL (4.50-5.90); RED CELL DISTRIBUTION WIDTH 13.8 % (11.5-14.5)
[2019-04-18 19:40] LABS: ANION GAP 4 mmol/L (8-16); CALCIUM, TOTAL 9.3 mg/dL (8.8-10.5); CARBON DIOXIDE 39 mmol/L (22-29); CHLORIDE 102 mmol/L (98-107); CREATININE 0.98 mg/dL (0.60-1.30); GLOMERULAR FILTR. RATE CALC > 60 mL/min (>60); GLUCOSE,RANDOM 108 mg/dL (70-110); POTASSIUM 3.4 mmol/L (3.5-5.1); SODIUM SERUM 145 mmol/L (136-145); UREA NITROGEN, BLOOD 12 mg/dL (7-18)
[2019-04-18] MEDS ORDERED: LORazepam 2 MG/ML VIAL IVP ONE (20:30)
[2019-04-18] MEDS ORDERED: ONDANSETRON HCL 4 MG/2 ML VIAL IVP PRN (20:30)
[2019-04-18] MEDS ORDERED: ACETAMINOPHEN 325 MG TABLET PO PRN (20:30)
[2019-04-18] MEDS ORDERED: ALBUTEROL SULFATE 2.5 MG/0.5 ML NEB SOLUTION NEB SCH (23:00)
[2019-04-18] MEDS ORDERED: IPRATROPIUM BROMIDE 0.5 MG/2.5 ML NEB SOLUTION NEB SCH (23:00)
[2019-04-19 00:05] VITALS: BP 145/98
[2019-04-19] MEDS ORDERED: 0.9% SODIUM CHLORIDE 10 ML SYRINGE IVP PRN (01:45)
[2019-04-19] MEDS ORDERED: ALBUTEROL SULFATE 2.5 MG/0.5 ML NEB SOLUTION NEB PRN (01:45)
[2019-04-19] MEDS ORDERED: MAGNESIUM HYDROXIDE SUSPENSION 30 ML UDCUP PO PRN (01:45)
[2019-04-19] MEDS ORDERED: -PHARMACY VACCINE NOTE- MISC ONE (02:00)
[2019-04-19] MEDS ORDERED: POTASSIUM CHLORIDE 20 MEQ ER TABLET PO PRN (02:15)
[2019-04-19] MEDS ORDERED: POTASSIUM CHL 10 MEQ/WATER 50 ML IV PRN (02:15)
[2019-04-19] MEDS ORDERED: VANCOMYCIN HCL 1 GM/D5% WATER 200 ML IV ONE (02:15)
[2019-04-19] MEDS ORDERED: SODIUM CHLORIDE 0.9% 250 ML IV ONE (02:39)
[2019-04-19] MEDS: ACETAMINOPHEN 325 MG TABLET PO PRN (03:18)
[2019-04-19] MEDS: IPRATROPIUM BROMIDE 0.5 MG/2.5 ML NEB SOLUTION NEB SCH ×7 (03:18→22:48)
[2019-04-19] MEDS: ONDANSETRON HCL 4 MG/2 ML VIAL IVP PRN (03:18)
[2019-04-19] MEDS: ALBUTEROL SULFATE 2.5 MG/0.5 ML NEB SOLUTION NEB SCH ×7 (03:19→22:48)
[2019-04-19] MEDS ORDERED: PIPERACILLIN SODIUM/TAZOBACTAM 4.5 GM in DEXTROSE 5%-WATER 100 ML IV SCH (04:00)
[2019-04-19 04:54] VITALS: BP 141/92
[2019-04-19 06:14] LABS: AMPHET/METH SCREEN,URINE NEGATIVE (NEGATIVE); BARBITURATE SCREEN, URINE NEGATIVE (NEGATIVE); BENZODIAZEPINES SCREEN,URINE POSITIVE (NEGATIVE); CANNABINOID SCREEN,URINE NEGATIVE (NEGATIVE); COCAINE SCREEN,URINE NEGATIVE (NEGATIVE); METHADONE SCREEN, URINE NEGATIVE (NEGATIVE); OPIATE SCREEN,URINE NEGATIVE (NEGATIVE)
[2019-04-19 06:15] LABS: PHENCYCLIDINE SCREEN,URINE NEGATIVE (NEGATIVE)
[2019-04-19 07:35] VITALS: BP 136/88
[2019-04-19] MEDS: DOCUSATE SODIUM 100 MG CAPSULE PO SCH ×3 (08:31→20:55)
[2019-04-19] MEDS: BusPIRone HCL 10 MG TABLET PO SCH ×2 (08:31→20:46)
[2019-04-19] MEDS: FAMOTIDINE 10 MG/ML 2 ML VIAL IVP SCH (08:32)
[2019-04-19] MEDS: PIPERACILLIN/TAZO 3.375 GM/D5W 50 ML IV SCH ×3 (11:39→23:26)
[2019-04-19 12:15] VITALS: BP 135/105
[2019-04-19] MEDS: LORazepam 2 MG/ML VIAL IVP PRN (15:49)
[2019-04-19] MEDS: VANCOMYCIN HCL 750 MG in DEXTROSE 5%-WATER 250 ML IV SCH (15:57)
[2019-04-19 16:15] VITALS: BP 137/94
[2019-04-19] MEDS: MethylPREDNISolone SOD SUCC 125 MG/2 ML VIAL IVP SCH (17:34)
[2019-04-19 19:39] VITALS: BP 122/81
[2019-04-20] VITALS (7 sets, daily range): BP systolic 122–146; BP diastolic 82–100
[2019-04-20] MEDS: MethylPREDNISolone SOD SUCC 125 MG/2 ML VIAL IVP SCH ×4 (00:34→18:38)
[2019-04-20] MEDS: VANCOMYCIN HCL 750 MG in DEXTROSE 5%-WATER 250 ML IV SCH ×3 (00:34→16:20)
[2019-04-20] MEDS: IPRATROPIUM BROMIDE 0.5 MG/2.5 ML NEB SOLUTION NEB SCH ×10 (02:00→22:57)
[2019-04-20] MEDS: ALBUTEROL SULFATE 2.5 MG/0.5 ML NEB SOLUTION NEB SCH ×10 (02:00→22:57)
[2019-04-20 05:07] LABS: HIV 1-2 SCREEN 4TH GEN W/RFLX Non Reactive (Non Reactive)
[2019-04-20] MEDS: PIPERACILLIN/TAZO 3.375 GM/D5W 50 ML IV SCH ×3 (06:01→18:38)
[2019-04-20 07:15] LABS: HEMATOCRIT 46.3 % (41-53); HEMOGLOBIN 15.1 g/dL (13.5-17.5); MEAN CORPUSCULAR HEMOGLOBIN 31.3 pg (26.0-34.0); MEAN CORPUSCULAR HGB CONC 32.6 G/dL (31.0-37.0); MEAN CORPUSCULAR VOLUME 96 fL (80-100); PLATELET COUNT (AUTO) 560 K/uL (150-450); RED BLOOD CELL COUNT(AUTO) 4.82 MIL/uL (4.50-5.90); RED CELL DISTRIBUTION WIDTH 13.9 % (11.5-14.5)
[2019-04-20 07:31] LABS: ANION GAP 6 mmol/L (8-16); CALCIUM, TOTAL 8.9 mg/dL (8.8-10.5); CARBON DIOXIDE 35 mmol/L (22-29); CHLORIDE 101 mmol/L (98-107); CREATININE 0.84 mg/dL (0.60-1.30); GLOMERULAR FILTR. RATE CALC > 60 mL/min (>60); GLUCOSE,RANDOM 168 mg/dL (70-110); POTASSIUM 4.1 mmol/L (3.5-5.1); SODIUM SERUM 142 mmol/L (136-145); UREA NITROGEN, BLOOD 19 mg/dL (7-18)
[2019-04-20] MEDS: FAMOTIDINE 10 MG/ML 2 ML VIAL IVP SCH (08:27)
[2019-04-20] MEDS: DOCUSATE SODIUM 100 MG CAPSULE PO SCH ×2 (08:27→19:56)
[2019-04-20] MEDS: BusPIRone HCL 10 MG TABLET PO SCH ×2 (08:28→19:55)
[2019-04-20 10:17] LABS: BAND NEUTROPHILS % (MANUAL) 1 % (0-5); LYMPHOCYTES % (MANUAL) 4 % (22-44); SEGMENTED NEUTROPHILS % 95 % (40-70)
[2019-04-20] MEDS: ACETAMINOPHEN 325 MG TABLET PO PRN (13:25)
[2019-04-20] MEDS: LORazepam 2 MG/ML VIAL IVP PRN (16:19)
[2019-04-20] MEDS: OxyCODONE HCL/ACETAMINOPHEN 5-325 MG TABLET PO PRN ×2 (17:02→21:15)
[2019-04-20] MEDS ORDERED: HYDROmorphone 2 MG/ML SYRINGE IVP ONE (19:30)
[2019-04-20 20:16] LABS: LIPASE 119 U/L (73-393)
[2019-04-21] MEDS: MethylPREDNISolone SOD SUCC 125 MG/2 ML VIAL IVP SCH ×3 (00:07→12:33)
[2019-04-21] MEDS: PIPERACILLIN/TAZO 3.375 GM/D5W 50 ML IV SCH ×5 (00:08→23:19)
[2019-04-21] MEDS: VANCOMYCIN HCL 750 MG in DEXTROSE 5%-WATER 250 ML IV SCH ×4 (00:49→23:20)
[2019-04-21] MEDS: LORazepam 2 MG/ML VIAL IVP PRN ×2 (00:50→17:55)
[2019-04-21 01:20] LABS: APPEARANCE,URINE CLEAR (CLEAR); BILIRUBIN,URINE NEGATIVE (NEGATIVE); GLUCOSE, URINE (UA) NEGATIVE (NEGATIVE); KETONES,URINE NEGATIVE (NEGATIVE); LEUKOCYTE ESTERASE ,URINE NEGATIVE (NEGATIVE); NITRATE,URINE NEGATIVE (NEGATIVE); OCCULT BLOOD,URINE NEGATIVE (NEGATIVE); PH,URINE 6.5 (5.0-8.0); PROTEIN,URINE NEGATIVE (NEGATIVE); UROBILINOGEN,URINE 0.2 mg/dL (<=1.0)
[2019-04-21] MEDS: ALBUTEROL SULFATE 2.5 MG/0.5 ML NEB SOLUTION NEB SCH ×7 (02:00→22:54)
[2019-04-21] MEDS: IPRATROPIUM BROMIDE 0.5 MG/2.5 ML NEB SOLUTION NEB SCH ×7 (02:00→22:54)
[2019-04-21] MEDS: OxyCODONE HCL/ACETAMINOPHEN 5-325 MG TABLET PO PRN ×4 (04:00→20:24)
[2019-04-21 05:16] VITALS: BP 138/88
[2019-04-21 07:09] LABS: ANION GAP 5 mmol/L (8-16); CALCIUM, TOTAL 8.6 mg/dL (8.8-10.5); CARBON DIOXIDE 34 mmol/L (22-29); CHLORIDE 102 mmol/L (98-107); CREATININE 0.87 mg/dL (0.60-1.30); GLOMERULAR FILTR. RATE CALC > 60 mL/min (>60); GLUCOSE,RANDOM 153 mg/dL (70-110); POTASSIUM 4.1 mmol/L (3.5-5.1); SODIUM SERUM 141 mmol/L (136-145); UREA NITROGEN, BLOOD 22 mg/dL (7-18)
[2019-04-21 07:42] VITALS: BP 135/92
[2019-04-21] MEDS: BusPIRone HCL 10 MG TABLET PO SCH ×2 (08:33→20:24)
[2019-04-21] MEDS: FAMOTIDINE 10 MG/ML 2 ML VIAL IVP SCH (08:33)
[2019-04-21] MEDS: DOCUSATE SODIUM 100 MG CAPSULE PO SCH ×2 (08:34→20:28)
[2019-04-21] MEDS ORDERED: SODIUM CHLORIDE 0.9% 100 ML ONE (12:31)
[2019-04-21] MEDS: ONDANSETRON HCL 4 MG/2 ML VIAL IVP PRN (12:33)
[2019-04-21 17:03] VITALS: BP 129/61
[2019-04-21] MEDS: MethylPREDNISolone SOD SUCC 40 MG/ML VIAL IVP SCH ×2 (17:55→23:21)
[2019-04-21 20:15] VITALS: BP 125/74
[2019-04-21 23:40] VITALS: BP 122/75
[2019-04-22] MEDS: LORazepam 2 MG/ML VIAL IVP PRN ×3 (00:49→21:59)
[2019-04-22] MEDS: IPRATROPIUM BROMIDE 0.5 MG/2.5 ML NEB SOLUTION NEB SCH ×6 (03:00→23:00)
[2019-04-22] MEDS: ALBUTEROL SULFATE 2.5 MG/0.5 ML NEB SOLUTION NEB SCH ×6 (03:00→23:00)
[2019-04-22 04:33] VITALS: BP 129/77
[2019-04-22] MEDS: OxyCODONE HCL/ACETAMINOPHEN 5-325 MG TABLET PO PRN ×3 (05:00→20:11)
[2019-04-22] MEDS: MethylPREDNISolone SOD SUCC 40 MG/ML VIAL IVP SCH ×3 (05:01→17:50)
[2019-04-22] MEDS: PIPERACILLIN/TAZO 3.375 GM/D5W 50 ML IV SCH ×4 (05:01→23:13)
[2019-04-22] MEDS ORDERED: SODIUM CHLORIDE 0.9% 500 ML IV ONE (05:07)
[2019-04-22 07:01] LABS: ANION GAP 6 mmol/L (8-16); CALCIUM, TOTAL 8.9 mg/dL (8.8-10.5); CARBON DIOXIDE 35 mmol/L (22-29); CHLORIDE 100 mmol/L (98-107); CREATININE 0.85 mg/dL (0.60-1.30); GLOMERULAR FILTR. RATE CALC > 60 mL/min (>60); GLUCOSE,RANDOM 95 mg/dL (70-110); POTASSIUM 4.2 mmol/L (3.5-5.1); SODIUM SERUM 141 mmol/L (136-145); UREA NITROGEN, BLOOD 19 mg/dL (7-18)
[2019-04-22 07:35] VITALS: BP 131/108
[2019-04-22] MEDS: VANCOMYCIN HCL 750 MG in DEXTROSE 5%-WATER 250 ML IV SCH ×2 (08:44→16:41)
[2019-04-22] MEDS: DOCUSATE SODIUM 100 MG CAPSULE PO SCH ×2 (08:45→20:17)
[2019-04-22] MEDS: BusPIRone HCL 10 MG TABLET PO SCH ×2 (08:45→20:10)
[2019-04-22] MEDS: FAMOTIDINE 10 MG/ML 2 ML VIAL IVP SCH (08:46)
[2019-04-22 09:18] LABS: BASOPHILS % (AUTO) 0.1 % (0.0-2.0); EOSINOPHILS % (AUTO) 0 % (1.0-6.0); HEMATOCRIT 44.4 % (41-53); HEMOGLOBIN 14.5 g/dL (13.5-17.5); LYMPHOCYTES # (AUTO) 0.3 K/uL (1.0-4.8); LYMPHOCYTES % (AUTO) 1.6 % (22.0-44.0); MEAN CORPUSCULAR HEMOGLOBIN 31.2 pg (26.0-34.0); MEAN CORPUSCULAR HGB CONC 32.7 G/dL (31.0-37.0); MEAN CORPUSCULAR VOLUME 96 fL (80-100); MONOCYTES # (AUTO) 0.5 K/uL (0.1-1.0); MONOCYTES % (AUTO) 3.1 % (2.0-9.0); NEUTROPHILS # (AUTO) 16.8 K/uL (1.8-7.7); PLATELET COUNT (AUTO) 509 K/uL (150-450); RED BLOOD CELL COUNT(AUTO) 4.65 MIL/uL (4.50-5.90); RED CELL DISTRIBUTION WIDTH 14.2 % (11.5-14.5)
[2019-04-22 09:19] LABS: NEUTROPHILS % (AUTO) 95.2 % (40.0-70.0)
[2019-04-22 11:35] VITALS: BP 147/98
[2019-04-22 16:07] VITALS: BP 136/81
[2019-04-22 20:04] VITALS: BP 134/115
[2019-04-23 00:16] VITALS: BP 146/84
[2019-04-23 00:20] VITALS: BP 143/69
[2019-04-23] MEDS: VANCOMYCIN HCL 750 MG in DEXTROSE 5%-WATER 250 ML IV SCH ×3 (00:23→15:16)
[2019-04-23] MEDS: MethylPREDNISolone SOD SUCC 40 MG/ML VIAL IVP SCH ×2 (02:22→08:29)
[2019-04-23] MEDS: OxyCODONE HCL/ACETAMINOPHEN 5-325 MG TABLET PO PRN ×2 (02:22→08:38)
[2019-04-23] MEDS: ALBUTEROL SULFATE 2.5 MG/0.5 ML NEB SOLUTION NEB SCH ×4 (03:04→14:58)
[2019-04-23] MEDS: IPRATROPIUM BROMIDE 0.5 MG/2.5 ML NEB SOLUTION NEB SCH ×4 (03:04→14:57)
[2019-04-23 04:12] VITALS: BP 132/101
[2019-04-23 05:23] LABS: ANION GAP 7 mmol/L (8-16); CALCIUM, TOTAL 8.1 mg/dL (8.8-10.5); CARBON DIOXIDE 32 mmol/L (22-29); CHLORIDE 100 mmol/L (98-107); CREATININE 1.15 mg/dL (0.60-1.30); GLOMERULAR FILTR. RATE CALC > 60 mL/min (>60); GLUCOSE,RANDOM 163 mg/dL (70-110); POTASSIUM 4.1 mmol/L (3.5-5.1); SODIUM SERUM 139 mmol/L (136-145); UREA NITROGEN, BLOOD 26 mg/dL (7-18)
[2019-04-23] MEDS: PIPERACILLIN/TAZO 3.375 GM/D5W 50 ML IV SCH ×2 (06:50→11:53)
[2019-04-23] MEDS: LORazepam 2 MG/ML VIAL IVP PRN ×2 (06:50→15:15)
[2019-04-23 07:48] VITALS: BP 151/110
[2019-04-23] MEDS: DOCUSATE SODIUM 100 MG CAPSULE PO SCH (08:29)
[2019-04-23] MEDS: FAMOTIDINE 10 MG/ML 2 ML VIAL IVP SCH (08:29)
[2019-04-23] MEDS: BusPIRone HCL 10 MG TABLET PO SCH (08:29)
[2019-04-23] MEDS ORDERED: PredniSONE 20 MG TABLET PO SCH (10:45)
[2019-04-23 11:46] VITALS: BP 147/105
[2019-04-23] MEDS ORDERED: AUD NEB (15:01)
[2019-04-23] MEDS ORDERED: PRED10TA3 PO (15:05)
[2019-04-23] MEDS ORDERED: AMOX1TAB16 PO (15:06)
[2019-04-23 15:39] VITALS: BP 152/99
== END 2019-04-23 16:15 | disposition home or self-care (01) | DRG 139 ==
LOC: EMS 18:40 → 5N 22:00
PROVIDERS: ADMIT Internal Medicine; ATTEND Internal Medicine
DX: J18.9 Pneumonia, unspecified organism (principal); J96.91 Respiratory failure, unspecified with hypoxia; E43 Unspecified severe protein-calorie malnutrition; J44.1 Chronic obstructive pulmonary disease with (acute) exacerbation; R65.10 Systemic inflammatory response syndrome (SIRS) of non-infectious origin without acute organ dysfunction; J44.0 Chronic obstructive pulmonary disease with (acute) lower respiratory infection; F17.210 Nicotine dependence, cigarettes, uncomplicated; F20.9 Schizophrenia, unspecified; F41.9 Anxiety disorder, unspecified; F10.20 Alcohol dependence, uncomplicated; I10 Essential (primary) hypertension; F15.90 Other stimulant use, unspecified, uncomplicated; F19.10 Other psychoactive substance abuse, uncomplicated; Z68.1 Body mass index [BMI] 19.9 or less, adult; Z91.19 Patient's noncompliance with other medical treatment and regimen
CPT/HCPCS: 80307; 84132; 87040; 87081; 87389; 93005; 94640; 94644; J1170; J2060; J2405; J2543; J2920; J2930; J3370; J3490; J7030; J7040; J7050; J7060

== ENCOUNTER 2019-05-17 18:49 | Inpatient (IN) | payer OTHER ==
[~2019-05-17] VITALS: Ht 175.3 cm; Wt 51.7 kg
[~2019-05-17 18:49] MED LIST changes: +AMOX1TAB16 PO; +AUD NEB; +PRED10TA3 PO
[2019-05-17] MEDS ORDERED: IPRATROPIUM BROMIDE 0.5 MG/2.5 ML NEB SOLUTION NEB ONE (19:15)
[2019-05-17] MEDS ORDERED: ALBUTEROL SULFATE 5 MG/ML 20 ML NEB SOLN [BULK] NEB ONE (19:15)
[2019-05-17] MEDS ORDERED: 0.9% SODIUM CHLORIDE 5 ML NEB SOLUTION NEB ONE (19:19)
[2019-05-17] MEDS ORDERED: DEXAMETHASONE SOD PHOS 4 MG/ML 5 ML VIAL IM ONE (19:45)
[2019-05-17] MEDS ORDERED: AZITHROMYCIN 500 MG/NS 250 ML IV ONE (21:45)
[2019-05-17] MEDS ORDERED: ALBUTEROL SULFATE HFA 90 MCG/PUFF 8 GM INHALER IH ONE (21:45)
[2019-05-17] MEDS ORDERED: SODIUM CHLORIDE 0.9% 1,000 ML IV ONE (22:00)
[2019-05-17] MEDS ORDERED: MAGNESIUM SULFATE 2 GM, MVI, ADULT NO.1 WITH VIT K 10 ML, THIAMINE HCL 100 MG, FOLIC AC... IV ONE ×5 (22:00)
[2019-05-17 22:23] LABS: BASOPHILS % (AUTO) 0.3 % (0.0-2.0); EOSINOPHILS % (AUTO) 0.7 % (1.0-6.0); HEMATOCRIT 43.6 % (41-53); HEMOGLOBIN 14.7 g/dL (13.5-17.5); LYMPHOCYTES # (AUTO) 0.6 K/uL (1.0-4.8); LYMPHOCYTES % (AUTO) 5.4 % (22.0-44.0); MEAN CORPUSCULAR HEMOGLOBIN 31.7 pg (26.0-34.0); MEAN CORPUSCULAR HGB CONC 33.6 G/dL (31.0-37.0); MEAN CORPUSCULAR VOLUME 94 fL (80-100); MONOCYTES # (AUTO) 0.3 K/uL (0.1-1.0); MONOCYTES % (AUTO) 2.4 % (2.0-9.0); PLATELET COUNT (AUTO) 306 K/uL (150-450); RED BLOOD CELL COUNT(AUTO) 4.63 MIL/uL (4.50-5.90); RED CELL DISTRIBUTION WIDTH 14.3 % (11.5-14.5)
[2019-05-17 22:30] LABS: NEUTROPHILS % (AUTO) 91.2 % (40.0-70.0)
[2019-05-17 22:41] LABS: ALANINE AMINOTRANSFERASE 96 U/L (12-78); ALBUMIN 3.7 g/dL (3.4-5.0); ALKALINE PHOSPHATASE 140 U/L (46-116); ANION GAP 11 mmol/L (8-16); ASPARTATE AMINOTRANSFERASE 86 U/L (15-37); CALCIUM, TOTAL 8.3 mg/dL (8.8-10.5); CARBON DIOXIDE 30 mmol/L (22-29); CHLORIDE 101 mmol/L (98-107); CREATININE 0.99 mg/dL (0.60-1.30); GLOMERULAR FILTR. RATE CALC > 60 mL/min (>60); GLUCOSE,RANDOM 126 mg/dL (70-110); SODIUM SERUM 142 mmol/L (136-145); TOTAL PROTEIN, SERUM 6.7 g/dL (6.4-8.2); UREA NITROGEN, BLOOD 9 mg/dL (7-18)
[2019-05-18] VITALS (8 sets, daily range): BP systolic 101–155; BP diastolic 78–102
[2019-05-18] MEDS ORDERED: BISACODYL 10 MG RECTAL RECTAL SUPPOSITORY PR PRN
[2019-05-18] MEDS ORDERED: ACETAMINOPHEN 325 MG TABLET PO PRN
[2019-05-18] MEDS ORDERED: MAGNESIUM HYDROXIDE SUSPENSION 30 ML UDCUP PO PRN
[2019-05-18] MEDS ORDERED: IPRATROPIUM BROMIDE 0.5 MG/2.5 ML NEB SOLUTION NEB PRN
[2019-05-18] MEDS ORDERED: 0.9% SODIUM CHLORIDE 10 ML SYRINGE IVP PRN
[2019-05-18] MEDS ORDERED: POTASSIUM CHLORIDE 20 MEQ ER TABLET PO ONE
[2019-05-18] MEDS ORDERED: ONDANSETRON HCL 4 MG/2 ML VIAL IVP PRN ×2
[2019-05-18] MEDS ORDERED: ALBUTEROL SULFATE 2.5 MG/0.5 ML NEB SOLUTION NEB PRN
[2019-05-18] MEDS ORDERED: MAGNESIUM SULFATE 2 GM, MVI, ADULT NO.1 WITH VIT K 10 ML, THIAMINE HCL 100 MG, FOLIC AC... IV ONE ×5
[2019-05-18] MEDS: MethylPREDNISolone SOD SUCC 125 MG/2 ML VIAL IVP SCH ×4 (00:33→17:10)
[2019-05-18] MEDS: CefTRIAXone 1 GM/DEXTROSE 50 ML IV SCH (00:34)
[2019-05-18] MEDS: LORazepam 2 MG/ML VIAL IVP PRN ×3 (01:44→20:25)
[2019-05-18] MEDS: ALBUTEROL SULFATE 2.5 MG/0.5 ML NEB SOLUTION NEB SCH ×5 (02:41→23:00)
[2019-05-18] MEDS: IPRATROPIUM BROMIDE 0.5 MG/2.5 ML NEB SOLUTION NEB SCH ×5 (02:41→23:00)
[2019-05-18 07:17] LABS: BASOPHILS % (AUTO) 0.3 % (0.0-2.0); EOSINOPHILS % (AUTO) 0 % (1.0-6.0); HEMATOCRIT 42.1 % (41-53); LYMPHOCYTES # (AUTO) 0.2 K/uL (1.0-4.8); LYMPHOCYTES % (AUTO) 7.7 % (22.0-44.0); MEAN CORPUSCULAR HEMOGLOBIN 31.6 pg (26.0-34.0); MEAN CORPUSCULAR HGB CONC 33.2 G/dL (31.0-37.0); MEAN CORPUSCULAR VOLUME 95 fL (80-100); MONOCYTES % (AUTO) 0.8 % (2.0-9.0); NEUTROPHILS # (AUTO) 2.6 K/uL (1.8-7.7); PLATELET COUNT (AUTO) 301 K/uL (150-450); RED BLOOD CELL COUNT(AUTO) 4.42 MIL/uL (4.50-5.90); RED CELL DISTRIBUTION WIDTH 14.4 % (11.5-14.5)
[2019-05-18 07:19] LABS: NEUTROPHILS % (AUTO) 91.2 % (40.0-70.0)
[2019-05-18 07:29] LABS: ANION GAP 11 mmol/L (8-16); CALCIUM, TOTAL 8.3 mg/dL (8.8-10.5); CARBON DIOXIDE 25 mmol/L (22-29); CHLORIDE 106 mmol/L (98-107); CREATININE 0.93 mg/dL (0.60-1.30); GLOMERULAR FILTR. RATE CALC > 60 mL/min (>60); GLUCOSE,RANDOM 198 mg/dL (70-110); POTASSIUM 3.9 mmol/L (3.5-5.1); SODIUM SERUM 142 mmol/L (136-145); UREA NITROGEN, BLOOD 5 mg/dL (7-18)
[2019-05-18] MEDS: DOCUSATE SODIUM 100 MG CAPSULE PO SCH ×2 (08:28→20:23)
[2019-05-18] MEDS: PANTOPRAZOLE SODIUM 40 MG DR TABLET PO SCH (08:28)
[2019-05-18] MEDS: BusPIRone HCL 10 MG TABLET PO SCH ×2 (08:28→20:23)
[2019-05-18] MEDS: BENZONATATE 100 MG CAPSULE PO SCH ×3 (08:28→20:24)
[2019-05-18] MEDS: GuaiFENesin SR 600 MG ER TABLET PO SCH ×2 (08:28→20:24)
[2019-05-18] MEDS: HEPARIN SODIUM,PORCINE 5,000 UNITS/ML VIAL SQ SCH ×3 (08:29→15:25)
[2019-05-18] MEDS: ACETAMINOPHEN 325 MG TABLET PO PRN (10:20)
[2019-05-18] MEDS: ZOLPIDEM TARTRATE 5 MG TABLET PO PRN (21:24)
[2019-05-19] MEDS: MethylPREDNISolone SOD SUCC 125 MG/2 ML VIAL IVP SCH ×3 (00:22→12:17)
[2019-05-19] MEDS: HEPARIN SODIUM,PORCINE 5,000 UNITS/ML VIAL SQ SCH ×4 (00:22→23:36)
[2019-05-19] MEDS: CefTRIAXone 1 GM/DEXTROSE 50 ML IV SCH (02:03)
[2019-05-19] MEDS ORDERED: SODIUM CHLORIDE 0.9% 100 ML ONE (02:08)
[2019-05-19] MEDS: IPRATROPIUM BROMIDE 0.5 MG/2.5 ML NEB SOLUTION NEB SCH ×6 (03:00→23:00)
[2019-05-19] MEDS: ALBUTEROL SULFATE 2.5 MG/0.5 ML NEB SOLUTION NEB SCH ×6 (03:00→23:00)
[2019-05-19 05:13] VITALS: BP 143/100
[2019-05-19 07:07] LABS: BASOPHILS % (AUTO) 0.1 % (0.0-2.0); EOSINOPHILS % (AUTO) 0 % (1.0-6.0); HEMATOCRIT 41.1 % (41-53); HEMOGLOBIN 13.6 g/dL (13.5-17.5); LYMPHOCYTES # (AUTO) 0.4 K/uL (1.0-4.8); LYMPHOCYTES % (AUTO) 2.4 % (22.0-44.0); MEAN CORPUSCULAR HEMOGLOBIN 31.3 pg (26.0-34.0); MEAN CORPUSCULAR HGB CONC 33.1 G/dL (31.0-37.0); MEAN CORPUSCULAR VOLUME 95 fL (80-100); MONOCYTES # (AUTO) 0.5 K/uL (0.1-1.0); MONOCYTES % (AUTO) 2.9 % (2.0-9.0); NEUTROPHILS # (AUTO) 15.8 K/uL (1.8-7.7); NEUTROPHILS % (AUTO) 94.6 % (40.0-70.0); PLATELET COUNT (AUTO) 297 K/uL (150-450); RED BLOOD CELL COUNT(AUTO) 4.34 MIL/uL (4.50-5.90); RED CELL DISTRIBUTION WIDTH 13.9 % (11.5-14.5)
[2019-05-19 07:19] VITALS: BP 143/96
[2019-05-19 07:21] LABS: AMPHET/METH SCREEN,URINE POSITIVE (NEGATIVE); BARBITURATE SCREEN, URINE NEGATIVE (NEGATIVE); BENZODIAZEPINES SCREEN,URINE NEGATIVE (NEGATIVE); CANNABINOID SCREEN,URINE POSITIVE (NEGATIVE); COCAINE SCREEN,URINE NEGATIVE (NEGATIVE); METHADONE SCREEN, URINE NEGATIVE (NEGATIVE); OPIATE SCREEN,URINE NEGATIVE (NEGATIVE); PHENCYCLIDINE SCREEN,URINE NEGATIVE (NEGATIVE)
[2019-05-19 07:33] LABS: ANION GAP 9 mmol/L (8-16); CALCIUM, TOTAL 8.8 mg/dL (8.8-10.5); CARBON DIOXIDE 30 mmol/L (22-29); CHLORIDE 103 mmol/L (98-107); CREATININE 0.65 mg/dL (0.60-1.30); GLOMERULAR FILTR. RATE CALC > 60 mL/min (>60); GLUCOSE,RANDOM 111 mg/dL (70-110); POTASSIUM 3.8 mmol/L (3.5-5.1); SODIUM SERUM 142 mmol/L (136-145); UREA NITROGEN, BLOOD 14 mg/dL (7-18)
[2019-05-19] MEDS: DOCUSATE SODIUM 100 MG CAPSULE PO SCH ×2 (08:34→20:19)
[2019-05-19] MEDS: BusPIRone HCL 10 MG TABLET PO SCH ×2 (08:37→20:21)
[2019-05-19] MEDS: PANTOPRAZOLE SODIUM 40 MG DR TABLET PO SCH (08:38)
[2019-05-19] MEDS: BENZONATATE 100 MG CAPSULE PO SCH ×3 (08:38→20:21)
[2019-05-19] MEDS: GuaiFENesin SR 600 MG ER TABLET PO SCH ×2 (08:38→20:21)
[2019-05-19] MEDS: LORazepam 2 MG/ML VIAL IVP PRN ×2 (08:40→18:21)
[2019-05-19 12:02] VITALS: BP 155/96
[2019-05-19] MEDS: ACETAMINOPHEN 325 MG TABLET PO PRN (12:18)
[2019-05-19] MEDS: FLUTICASONE/VILANTEROL 200-25 MCG/INH INHALER [14] IH SCH ×2 (12:18→12:24)
[2019-05-19 16:00] VITALS: BP 140/101
[2019-05-19] MEDS: MethylPREDNISolone SOD SUCC 40 MG/ML VIAL IVP SCH ×2 (17:11→23:36)
[2019-05-19 19:17] VITALS: BP 134/73
[2019-05-19] MEDS: ZOLPIDEM TARTRATE 5 MG TABLET PO PRN (20:21)
[2019-05-19 23:50] VITALS: BP 150/103
[2019-05-20] MEDS: CefTRIAXone 1 GM/DEXTROSE 50 ML IV SCH (01:04)
[2019-05-20] MEDS: LORazepam 2 MG/ML VIAL IVP PRN ×3 (02:11→20:42)
[2019-05-20] MEDS: ALBUTEROL SULFATE 2.5 MG/0.5 ML NEB SOLUTION NEB SCH ×6 (03:00→23:00)
[2019-05-20] MEDS: IPRATROPIUM BROMIDE 0.5 MG/2.5 ML NEB SOLUTION NEB SCH ×6 (03:00→23:00)
[2019-05-20 03:42] VITALS: BP 144/100
[2019-05-20] MEDS: MethylPREDNISolone SOD SUCC 40 MG/ML VIAL IVP SCH ×2 (05:16→20:42)
[2019-05-20 08:18] VITALS: BP 148/118
[2019-05-20] MEDS: DOCUSATE SODIUM 100 MG CAPSULE PO SCH ×2 (08:37→20:43)
[2019-05-20] MEDS: BusPIRone HCL 10 MG TABLET PO SCH ×2 (08:37→20:43)
[2019-05-20] MEDS: BENZONATATE 100 MG CAPSULE PO SCH ×3 (08:37→20:42)
[2019-05-20] MEDS: PANTOPRAZOLE SODIUM 40 MG DR TABLET PO SCH (08:37)
[2019-05-20] MEDS: GuaiFENesin SR 600 MG ER TABLET PO SCH ×2 (08:37→20:43)
[2019-05-20] MEDS: HEPARIN SODIUM,PORCINE 5,000 UNITS/ML VIAL SQ SCH ×2 (08:37→15:03)
[2019-05-20] MEDS: FLUTICASONE/VILANTEROL 200-25 MCG/INH INHALER [14] IH SCH (08:38)
[2019-05-20 09:13] LABS: EOSINOPHILS % (AUTO) 0 % (1.0-6.0); HEMATOCRIT 42.5 % (41-53); HEMOGLOBIN 13.9 g/dL (13.5-17.5); LYMPHOCYTES # (AUTO) 0.2 K/uL (1.0-4.8); LYMPHOCYTES % (AUTO) 1.8 % (22.0-44.0); MEAN CORPUSCULAR HGB CONC 32.6 G/dL (31.0-37.0); MEAN CORPUSCULAR VOLUME 95 fL (80-100); MONOCYTES # (AUTO) 0.3 K/uL (0.1-1.0); MONOCYTES % (AUTO) 2.3 % (2.0-9.0); NEUTROPHILS # (AUTO) 12.4 K/uL (1.8-7.7); PLATELET COUNT (AUTO) 284 K/uL (150-450); RED BLOOD CELL COUNT(AUTO) 4.47 MIL/uL (4.50-5.90); RED CELL DISTRIBUTION WIDTH 14.2 % (11.5-14.5)
[2019-05-20 09:36] LABS: ANION GAP 5 mmol/L (8-16); CARBON DIOXIDE 35 mmol/L (22-29); CHLORIDE 103 mmol/L (98-107); CREATININE 0.81 mg/dL (0.60-1.30); GLOMERULAR FILTR. RATE CALC > 60 mL/min (>60); GLUCOSE,RANDOM 106 mg/dL (70-110); POTASSIUM 3.7 mmol/L (3.5-5.1); SODIUM SERUM 143 mmol/L (136-145); UREA NITROGEN, BLOOD 15 mg/dL (7-18)
[2019-05-20 09:38] LABS: NEUTROPHILS % (AUTO) 95.9 % (40.0-70.0)
[2019-05-20] MEDS: CARVEDILOL 3.125 MG TABLET PO SCH (10:50)
[2019-05-20 11:11] VITALS: BP 142/94
[2019-05-20] MEDS: ACETAMINOPHEN 325 MG TABLET PO PRN ×2 (15:02→20:42)
[2019-05-20 15:42] VITALS: BP 156/98
[2019-05-20 19:48] VITALS: BP 147/89
[2019-05-20] MEDS: ZOLPIDEM TARTRATE 5 MG TABLET PO PRN (22:00)
[2019-05-21] MEDS: HEPARIN SODIUM,PORCINE 5,000 UNITS/ML VIAL SQ SCH ×2 (00:05→08:08)
[2019-05-21] MEDS: CefTRIAXone 1 GM/DEXTROSE 50 ML IV SCH (00:05)
[2019-05-21 00:28] VITALS: BP 140/91
[2019-05-21] MEDS: IPRATROPIUM BROMIDE 0.5 MG/2.5 ML NEB SOLUTION NEB SCH ×3 (03:00→11:00)
[2019-05-21] MEDS: ALBUTEROL SULFATE 2.5 MG/0.5 ML NEB SOLUTION NEB SCH ×3 (03:00→11:00)
[2019-05-21 03:41] VITALS: BP 149/94
[2019-05-21 07:08] VITALS: BP 162/100
[2019-05-21] MEDS: BusPIRone HCL 10 MG TABLET PO SCH (08:09)
[2019-05-21] MEDS: GuaiFENesin SR 600 MG ER TABLET PO SCH (08:09)
[2019-05-21] MEDS: CARVEDILOL 3.125 MG TABLET PO SCH (08:09)
[2019-05-21] MEDS: LORazepam 2 MG/ML VIAL IVP PRN (08:09)
[2019-05-21] MEDS: MethylPREDNISolone SOD SUCC 40 MG/ML VIAL IVP SCH (08:09)
[2019-05-21] MEDS: BENZONATATE 100 MG CAPSULE PO SCH (08:09)
[2019-05-21] MEDS: FLUTICASONE/VILANTEROL 200-25 MCG/INH INHALER [14] IH SCH (08:09)
[2019-05-21] MEDS: PANTOPRAZOLE SODIUM 40 MG DR TABLET PO SCH (08:09)
[2019-05-21] MEDS: DOCUSATE SODIUM 100 MG CAPSULE PO SCH (08:09)
[2019-05-21 10:40] VITALS: BP 144/116
[2019-05-21] MEDS ORDERED: BENZ100C68 PO (10:42)
[2019-05-21] MEDS ORDERED: CARV3 PO (10:42)
[2019-05-21] MEDS ORDERED: OMEP20TA2 PO (10:42)
[2019-05-21] MEDS ORDERED: ADV250 IH (10:42)
[2019-05-21] MEDS ORDERED: PRED20 PO (10:42)
[2019-05-21] MEDS ORDERED: PRED5 PO (10:42)
[2019-05-21] MEDS ORDERED: PRED10 PO (10:42)
== END 2019-05-21 12:40 | disposition home or self-care (01) | DRG 140 ==
LOC: EMS 18:49 → 5N 23:30
PROVIDERS: ADMIT Internal Medicine; ATTEND Internal Medicine
DX: J44.1 Chronic obstructive pulmonary disease with (acute) exacerbation (principal); F20.9 Schizophrenia, unspecified; Z99.81 Dependence on supplemental oxygen; I10 Essential (primary) hypertension; F17.210 Nicotine dependence, cigarettes, uncomplicated; F10.10 Alcohol abuse, uncomplicated; F15.90 Other stimulant use, unspecified, uncomplicated; Y90.9 Presence of alcohol in blood, level not specified; E87.6 Hypokalemia; F19.10 Other psychoactive substance abuse, uncomplicated; J45.901 Unspecified asthma with (acute) exacerbation; R09.02 Hypoxemia; Z91.19 Patient's noncompliance with other medical treatment and regimen; Z87.01 Personal history of pneumonia (recurrent); Z88.8 Allergy status to other drugs, medicaments and biological substances; Z88.6 Allergy status to analgesic agent
CPT/HCPCS: 87081; 94640; 94644; 96365; 96367; 96372; G0480; J0456; J0696; J1100; J1644; J2060; J2920; J2930; J3411; J3475; J3490; J7030; J7050

== ENCOUNTER 2019-11-11 12:31 | Emergency (ER) | payer OTHER ==
[~2019-11-11] VITALS: Ht 172.7 cm; Wt 48.6 kg
[~2019-11-11 12:31] MED LIST changes: +ADV250 IH; -AMOX1TAB16 PO; +BENZ100C68 PO; +CARV3 PO; +OMEP20TA2 PO; +PRED10 PO; -PRED10TA3 PO; +PRED20 PO; +PRED5 PO
[2019-11-11] MEDS: SODIUM CHLORIDE 0.9% 1,000 ML IV ONE ×2 (13:39→13:40)
[2019-11-11 13:42] LABS: BASOPHILS % (AUTO) 0.7 % (0.0-2.0); EOSINOPHILS % (AUTO) 0.9 % (1.0-6.0); HEMATOCRIT 47.7 % (41-53); HEMOGLOBIN 16.3 g/dL (13.5-17.5); LYMPHOCYTES # (AUTO) 1.9 K/uL (1.0-4.8); LYMPHOCYTES % (AUTO) 32.3 % (22.0-44.0); MEAN CORPUSCULAR HEMOGLOBIN 33.6 pg (26.0-34.0); MEAN CORPUSCULAR HGB CONC 34.1 G/dL (31.0-37.0); MEAN CORPUSCULAR VOLUME 99 fL (80-100); MONOCYTES # (AUTO) 0.5 K/uL (0.1-1.0); MONOCYTES % (AUTO) 8.7 % (2.0-9.0); NEUTROPHILS # (AUTO) 3.4 K/uL (1.8-7.7); NEUTROPHILS % (AUTO) 57.4 % (40.0-70.0); PLATELET COUNT (AUTO) 242 K/uL (150-450); RED BLOOD CELL COUNT(AUTO) 4.83 MIL/uL (4.50-5.90); RED CELL DISTRIBUTION WIDTH 14.8 % (11.5-14.5)
[2019-11-11] MEDS ORDERED: ALBUTEROL SULFATE HFA 90 MCG/PUFF 8 GM INHALER IH ONE (13:45)
[2019-11-11] MEDS ORDERED: ACETAMINOPHEN 500 MG TABLET PO ONE (13:45)
[2019-11-11 14:00] LABS: ANION GAP 7 mmol/L (8-16); CALCIUM, TOTAL 8.8 mg/dL (8.8-10.5); CARBON DIOXIDE 31 mmol/L (22-29); CHLORIDE 102 mmol/L (98-107); CREATININE 0.92 mg/dL (0.60-1.30); GLOMERULAR FILTR. RATE CALC > 60 mL/min (>60); GLUCOSE,RANDOM 89 mg/dL (70-110); POTASSIUM 3.6 mmol/L (3.5-5.1); SODIUM SERUM 140 mmol/L (136-145); UREA NITROGEN, BLOOD 8 mg/dL (7-18)
[2019-11-11 14:26] LABS: B-TYPE NATRIURETIC PEPTIDE 41 pg/mL (0-100)
[2019-11-11 14:37] LABS: ALANINE AMINOTRANSFERASE 199 U/L (12-78); ALBUMIN 3.9 g/dL (3.4-5.0); ALKALINE PHOSPHATASE 150 U/L (46-116); ASPARTATE AMINOTRANSFERASE 168 U/L (15-37); BILIRUBIN,TOTAL 1.3 mg/dL (0.1-1.0); CREATINE KINASE, TOTAL ONLY 90 U/L (39-308)
[2019-11-11 15:42] VITALS: BP 131/89
== END 2019-11-11 16:20 | disposition home or self-care (01) ==
LOC: EMS 12:35
DX: R06.02 Shortness of breath (principal); R00.2 Palpitations; F10.129 Alcohol abuse with intoxication, unspecified; J45.909 Unspecified asthma, uncomplicated; I10 Essential (primary) hypertension; F20.9 Schizophrenia, unspecified; F17.210 Nicotine dependence, cigarettes, uncomplicated; Z88.8 Allergy status to other drugs, medicaments and biological substances; Z88.5 Allergy status to narcotic agent; Y90.8 Blood alcohol level of 240 mg/100 ml or more
CPT/HCPCS: 36415; 71045; 80053; 82550; 83735; 83880; 84484; 85025; 93005; 94640; 96360; 99285; 99406; G0480; J7030; J3535

== ENCOUNTER 2019-12-24 16:51 | Emergency (ER) | payer OTHER ==
[~2019-12-24] VITALS: Ht 170.2 cm; Wt 59.1 kg
[2019-12-24] MEDS ORDERED: ACETAMINOPHEN 500 MG TABLET PO ONE (17:15)
[2019-12-24] MEDS ORDERED: ONDANSETRON HCL 4 MG/2 ML VIAL IVP ONE (17:15)
[2019-12-24] MEDS ORDERED: KETOROLAC TROMETHAMINE 30 MG/ML VIAL IVP ONE (17:15)
[2019-12-24] MEDS ORDERED: SODIUM CHLORIDE 0.9% 1,000 ML IV ONE (17:15)
[2019-12-24 17:31] LABS: BASOPHILS % (AUTO) 0.9 % (0.0-2.0); EOSINOPHILS % (AUTO) 1.1 % (1.0-6.0); HEMATOCRIT 47.1 % (41-53); LYMPHOCYTES % (AUTO) 30.8 % (22.0-44.0); MEAN CORPUSCULAR HEMOGLOBIN 33.6 pg (26.0-34.0); MEAN CORPUSCULAR HGB CONC 33.9 G/dL (31.0-37.0); MEAN CORPUSCULAR VOLUME 99 fL (80-100); MONOCYTES # (AUTO) 0.6 K/uL (0.1-1.0); NEUTROPHILS # (AUTO) 3.7 K/uL (1.8-7.7); NEUTROPHILS % (AUTO) 57.2 % (40.0-70.0); PLATELET COUNT (AUTO) 369 K/uL (150-450); RED BLOOD CELL COUNT(AUTO) 4.77 MIL/uL (4.50-5.90); RED CELL DISTRIBUTION WIDTH 13.7 % (11.5-14.5)
[2019-12-24 17:51] LABS: ANION GAP 9 mmol/L (8-16); CALCIUM, TOTAL 8.9 mg/dL (8.8-10.5); CARBON DIOXIDE 35 mmol/L (22-29); CHLORIDE 103 mmol/L (98-107); CREATININE 0.96 mg/dL (0.60-1.30); GLOMERULAR FILTR. RATE CALC > 60 mL/min (>60); GLUCOSE,RANDOM 126 mg/dL (70-110); POTASSIUM 3.3 mmol/L (3.5-5.1); SODIUM SERUM 147 mmol/L (136-145); UREA NITROGEN, BLOOD 10 mg/dL (7-18)
[2019-12-24 17:58] LABS: ALANINE AMINOTRANSFERASE 110 U/L (12-78); ALBUMIN 3.9 g/dL (3.4-5.0); ALKALINE PHOSPHATASE 125 U/L (46-116); ASPARTATE AMINOTRANSFERASE 92 U/L (15-37); BILIRUBIN,TOTAL 0.5 mg/dL (0.1-1.0); LIPASE 190 U/L (73-393); TOTAL PROTEIN, SERUM 6.8 g/dL (6.4-8.2)
[2019-12-24] MEDS ORDERED: IOVERSOL 350 MG/ML 100 ML VIAL ONE (18:02)
[2019-12-24] MEDS ORDERED: SODIUM CHLORIDE 0.9% 100 ML ONE (18:02)
[2019-12-24] MEDS ORDERED: POTASSIUM CHLORIDE 20 MEQ ER TABLET PO ONE (18:30)
[2019-12-24] MEDS ORDERED: FAMOTIDINE 10 MG/ML 2 ML VIAL IVP ONE (18:45)
[2019-12-24] MEDS ORDERED: MAG HYDROX/AL HYDROX/SIMETH 30 ML SUSP UDCUP PO ONE (18:45)
[2019-12-24 19:30] VITALS: BP 154/111
== END 2019-12-24 20:52 | disposition home or self-care (01) ==
LOC: EMS 17:03
DX: R10.32 Left lower quadrant pain (principal); I10 Essential (primary) hypertension; F17.210 Nicotine dependence, cigarettes, uncomplicated; F20.9 Schizophrenia, unspecified; Z88.8 Allergy status to other drugs, medicaments and biological substances; Z88.5 Allergy status to narcotic agent
CPT/HCPCS: 74177; 80053; 83690; 85025; 96361; 96374; 96375; 99285; 99406; G0480; J1885; J2405; J3490; J7030; J7050; Q9967

== ENCOUNTER 2020-01-26 20:43 | Emergency (ER) | payer OTHER ==
[~2020-01-26] VITALS: Ht 172.7 cm; Wt 50.0 kg
[2020-01-26] MEDS ORDERED: ALBU8HFA IH (20:54)
[2020-01-26] MEDS ORDERED: ALBUTEROL SULFATE HFA 90 MCG/PUFF 8 GM INHALER IH ONE (21:00)
[2020-01-26] MEDS ORDERED: PredniSONE 20 MG TABLET PO ONE (21:00)
[2020-01-26 21:43] VITALS: BP 134/89
== END 2020-01-26 22:00 | disposition home or self-care (01) ==
LOC: EMS 20:43
DX: J45.901 Unspecified asthma with (acute) exacerbation (principal); I10 Essential (primary) hypertension; F20.9 Schizophrenia, unspecified; Z79.899 Other long term (current) drug therapy; Z88.5 Allergy status to narcotic agent; Z88.8 Allergy status to other drugs, medicaments and biological substances
CPT/HCPCS: 94640; 99283; J7512; J3535

== ENCOUNTER 2020-02-09 19:53 | Inpatient (IN) | payer OTHER ==
[~2020-02-09] VITALS: Ht 170.2 cm; Wt 63.0 kg
[~2020-02-09 19:53] MED LIST changes: -A20IH1 NEB; -ADV250 IH; +ALBU8HFA IH; -AUD NEB; -BENZ100C68 PO; -BUSP10TA23 PO; -CARV3 PO; -MULT-1203 PO; -OMEP20TA2 PO; -PRED10 PO; -PRED20 PO; -PRED5 PO
[2020-02-09] MEDS ORDERED: KETOROLAC TROMETHAMINE 30 MG/ML VIAL IVP ONE (20:15)
[2020-02-09] MEDS ORDERED: SODIUM CHLORIDE 0.9% 1,000 ML IV ONE (20:15)
[2020-02-09 20:48] LABS: ANION GAP 9 mmol/L (8-16); CALCIUM, TOTAL 8.8 mg/dL (8.8-10.5); CARBON DIOXIDE 31 mmol/L (22-29); CHLORIDE 104 mmol/L (98-107); CREATININE 0.71 mg/dL (0.60-1.30); GLOMERULAR FILTR. RATE CALC > 60 mL/min (>60); GLUCOSE,RANDOM 98 mg/dL (70-110); POTASSIUM 3.7 mmol/L (3.5-5.1); SODIUM SERUM 144 mmol/L (136-145); UREA NITROGEN, BLOOD 9 mg/dL (7-18)
[2020-02-09 20:54] LABS: ALANINE AMINOTRANSFERASE 77 U/L (12-78); ALBUMIN 3.6 g/dL (3.4-5.0); ALKALINE PHOSPHATASE 126 U/L (46-116); ASPARTATE AMINOTRANSFERASE 81 U/L (15-37); BILIRUBIN,TOTAL 0.6 mg/dL (0.1-1.0); LIPASE 374 U/L (73-393)
[2020-02-09 20:56] LABS: BASOPHILS % (AUTO) 0.8 % (0.0-2.0); EOSINOPHILS % (AUTO) 1.1 % (1.0-6.0); HEMATOCRIT 43.1 % (41-53); HEMOGLOBIN 14.5 g/dL (13.5-17.5); LYMPHOCYTES # (AUTO) 2.2 K/uL (1.0-4.8); LYMPHOCYTES % (AUTO) 35.7 % (22.0-44.0); MEAN CORPUSCULAR HEMOGLOBIN 33.6 pg (26.0-34.0); MEAN CORPUSCULAR HGB CONC 33.6 G/dL (31.0-37.0); MEAN CORPUSCULAR VOLUME 100 fL (80-100); MONOCYTES # (AUTO) 0.6 K/uL (0.1-1.0); MONOCYTES % (AUTO) 9.3 % (2.0-9.0); NEUTROPHILS # (AUTO) 3.2 K/uL (1.8-7.7); NEUTROPHILS % (AUTO) 53.1 % (40.0-70.0); PLATELET COUNT (AUTO) 221 K/uL (150-450); RED BLOOD CELL COUNT(AUTO) 4.31 MIL/uL (4.50-5.90); RED CELL DISTRIBUTION WIDTH 14.4 % (11.5-14.5)
[2020-02-09] MEDS ORDERED: MAGNESIUM SULFATE 2 GM, MVI, ADULT NO.1 WITH VIT K 10 ML, THIAMINE 100 MG, FOLIC ACID 1... IV ONE ×5 (21:45)
[2020-02-09] MEDS ORDERED: DIAZEPAM 5 MG/ML 2 ML SYRINGE IVP PRN (21:45)
[2020-02-09] MEDS ORDERED: ACETAMINOPHEN 325 MG TABLET PO PRN (21:45)
[2020-02-09] MEDS ORDERED: ALBUTEROL SULFATE HFA 90 MCG/PUFF 8 GM INHALER IH PRN (21:45)
[2020-02-09] MEDS ORDERED: MAGNESIUM HYDROXIDE SUSPENSION 30 ML UDCUP PO PRN (21:45)
[2020-02-09] MEDS ORDERED: BISACODYL 10 MG RECTAL RECTAL SUPPOSITORY PR PRN (21:45)
[2020-02-09] MEDS ORDERED: ONDANSETRON HCL 4 MG/2 ML VIAL IVP PRN ×2 (21:45)
[2020-02-09 23:25] VITALS: BP 150/103
[2020-02-09] MEDS: ZOLPIDEM TARTRATE 5 MG TABLET PO PRN (23:41)
[2020-02-09] MEDS: ChlordiazePOXIDE HCL 10 MG CAPSULE PO SCH (23:41)
[2020-02-09] MEDS: LORazepam 2 MG/ML VIAL IVP PRN (23:41)
[2020-02-09] MEDS: HEPARIN SODIUM,PORCINE 5,000 UNITS/ML VIAL SQ SCH (23:41)
[2020-02-09] MEDS: ACETAMINOPHEN 325 MG TABLET PO PRN (23:55)
[2020-02-10] VITALS (8 sets, daily range): BP systolic 146–168; BP diastolic 96–120
[2020-02-10] MEDS ORDERED: INFLUENZA VIRUS VACCINE QVS 2020-21 (6MO+)/PF 60 MCG/0.5 ML SYRINGE IM ONE (02:00)
[2020-02-10] MEDS: LORazepam 2 MG/ML VIAL IVP PRN ×5 (04:11→20:33)
[2020-02-10] MEDS: ACETAMINOPHEN 325 MG TABLET PO PRN (04:12)
[2020-02-10 07:07] LABS: ANION GAP 9 mmol/L (8-16); CALCIUM, TOTAL 8.3 mg/dL (8.8-10.5); CARBON DIOXIDE 28 mmol/L (22-29); CHLORIDE 104 mmol/L (98-107); CREATININE 0.82 mg/dL (0.60-1.30); GLOMERULAR FILTR. RATE CALC > 60 mL/min (>60); GLUCOSE,RANDOM 92 mg/dL (70-110); PHOSPHORUS 4.2 mg/dL (2.5-4.9); POTASSIUM 3.9 mmol/L (3.5-5.1); SODIUM SERUM 141 mmol/L (136-145); UREA NITROGEN, BLOOD 7 mg/dL (7-18)
[2020-02-10 08:04] LABS: AMPHET/METH SCREEN,URINE NEGATIVE (NEGATIVE); BARBITURATE SCREEN, URINE NEGATIVE (NEGATIVE); BENZODIAZEPINES SCREEN,URINE NEGATIVE (NEGATIVE); CANNABINOID SCREEN,URINE NEGATIVE (NEGATIVE); COCAINE SCREEN,URINE NEGATIVE (NEGATIVE); METHADONE SCREEN, URINE NEGATIVE (NEGATIVE); OPIATE SCREEN,URINE NEGATIVE (NEGATIVE)
[2020-02-10 08:11] LABS: PHENCYCLIDINE SCREEN,URINE NEGATIVE (NEGATIVE)
[2020-02-10 08:31] LABS: APPEARANCE,URINE CLEAR (CLEAR); BILIRUBIN,URINE NEGATIVE (NEGATIVE); GLUCOSE, URINE (UA) NEGATIVE (NEGATIVE); KETONES,URINE NEGATIVE (NEGATIVE); LEUKOCYTE ESTERASE ,URINE NEGATIVE (NEGATIVE); NITRATE,URINE NEGATIVE (NEGATIVE); OCCULT BLOOD,URINE NEGATIVE (NEGATIVE); PH,URINE 6.5 (5.0-8.0); PROTEIN,URINE NEGATIVE (NEGATIVE)
[2020-02-10] MEDS: HEPARIN SODIUM,PORCINE 5,000 UNITS/ML VIAL SQ SCH ×2 (08:34→16:08)
[2020-02-10] MEDS: ChlordiazePOXIDE HCL 10 MG CAPSULE PO SCH ×2 (08:34→16:07)
[2020-02-10] MEDS: DOCUSATE SODIUM 100 MG CAPSULE PO SCH ×2 (08:35→19:40)
[2020-02-10] MEDS: FOLIC ACID 1 MG TABLET PO SCH (08:36)
[2020-02-10] MEDS: PANTOPRAZOLE SODIUM 40 MG DR TABLET PO SCH (08:37)
[2020-02-10] MEDS: THIAMINE 100 MG TABLET PO SCH (08:37)
[2020-02-10] MEDS: CloNIDine HCL 0.1 MG TABLET PO PRN ×2 (16:29→23:52)
[2020-02-10] MEDS: ZOLPIDEM TARTRATE 5 MG TABLET PO PRN (19:40)
[2020-02-11] MEDS: ChlordiazePOXIDE HCL 10 MG CAPSULE PO SCH ×2 (00:51→08:10)
[2020-02-11] MEDS: LORazepam 2 MG/ML VIAL IVP PRN ×3 (00:51→10:00)
[2020-02-11] MEDS: HEPARIN SODIUM,PORCINE 5,000 UNITS/ML VIAL SQ SCH ×2 (00:51→08:11)
[2020-02-11 03:48] VITALS: BP 152/100
[2020-02-11 07:02] LABS: ANION GAP 10 mmol/L (8-16); CARBON DIOXIDE 28 mmol/L (22-29); CHLORIDE 101 mmol/L (98-107); CREATININE 0.75 mg/dL (0.60-1.30); GLOMERULAR FILTR. RATE CALC > 60 mL/min (>60); GLUCOSE,RANDOM 96 mg/dL (70-110); SODIUM SERUM 139 mmol/L (136-145); UREA NITROGEN, BLOOD 10 mg/dL (7-18)
[2020-02-11 07:40] VITALS: BP 146/89
[2020-02-11] MEDS: PANTOPRAZOLE SODIUM 40 MG DR TABLET PO SCH (08:10)
[2020-02-11] MEDS: DOCUSATE SODIUM 100 MG CAPSULE PO SCH ×2 (08:10→08:15)
[2020-02-11] MEDS: FOLIC ACID 1 MG TABLET PO SCH (08:10)
[2020-02-11] MEDS: THIAMINE 100 MG TABLET PO SCH (08:10)
[2020-02-11] MEDS ORDERED: LIB10 PO (11:19)
[2020-02-11] MEDS ORDERED: THIA100T80 PO (11:19)
== END 2020-02-11 15:10 | disposition home or self-care (01) | DRG 52 ==
LOC: EMS 19:55 → 6N 21:38
PROVIDERS: ADMIT Internal Medicine; ATTEND Internal Medicine
DX: G92 Toxic encephalopathy (principal); F10.231 Alcohol dependence with withdrawal delirium; I10 Essential (primary) hypertension; J44.9 Chronic obstructive pulmonary disease, unspecified; R25.1 Tremor, unspecified; Z88.8 Allergy status to other drugs, medicaments and biological substances; Z88.6 Allergy status to analgesic agent; F20.9 Schizophrenia, unspecified; Z87.01 Personal history of pneumonia (recurrent); Y90.9 Presence of alcohol in blood, level not specified
CPT/HCPCS: 83735; 84100; 90686; G0480; J1644; J1885; J2060; J2405; J3411; J3475; J3490; J7030

== ENCOUNTER 2020-02-18 15:32 | Emergency (ER) | payer OTHER ==
[~2020-02-18] VITALS: Ht 172.7 cm; Wt 52.3 kg
[~2020-02-18 15:32] MED LIST changes: +LIB10 PO; +THIA100T80 PO
[2020-02-18] MEDS ORDERED: LORazepam 1 MG TABLET PO ONE (16:30)
[2020-02-18] MEDS ORDERED: MAGNESIUM SULFATE 2 GM, MVI, ADULT NO.1 WITH VIT K 10 ML, THIAMINE 100 MG, FOLIC ACID 1... IV ONE ×5 (16:30)
[2020-02-18 16:58] LABS: EOSINOPHILS % (AUTO) 2.8 % (1.0-6.0); HEMATOCRIT 47.1 % (41-53); HEMOGLOBIN 15.7 g/dL (13.5-17.5); LYMPHOCYTES # (AUTO) 2.3 K/uL (1.0-4.8); LYMPHOCYTES % (AUTO) 46.7 % (22.0-44.0); MEAN CORPUSCULAR HEMOGLOBIN 34.2 pg (26.0-34.0); MEAN CORPUSCULAR HGB CONC 33.2 G/dL (31.0-37.0); MEAN CORPUSCULAR VOLUME 103 fL (80-100); MONOCYTES # (AUTO) 0.5 K/uL (0.1-1.0); MONOCYTES % (AUTO) 9.8 % (2.0-9.0); NEUTROPHILS # (AUTO) 1.9 K/uL (1.8-7.7); NEUTROPHILS % (AUTO) 39.7 % (40.0-70.0); PLATELET COUNT (AUTO) 346 K/uL (150-450); RED BLOOD CELL COUNT(AUTO) 4.58 MIL/uL (4.50-5.90); RED CELL DISTRIBUTION WIDTH 14.5 % (11.5-14.5)
[2020-02-18 17:04] LABS: ANION GAP 4 mmol/L (8-16); CALCIUM, TOTAL 8.9 mg/dL (8.8-10.5); CARBON DIOXIDE 37 mmol/L (22-29); CHLORIDE 103 mmol/L (98-107); CREATININE 0.79 mg/dL (0.60-1.30); GLOMERULAR FILTR. RATE CALC > 60 mL/min (>60); GLUCOSE,RANDOM 92 mg/dL (70-110); POTASSIUM 4.7 mmol/L (3.5-5.1); SODIUM SERUM 144 mmol/L (136-145); UREA NITROGEN, BLOOD 10 mg/dL (7-18)
[2020-02-18 17:09] LABS: ALANINE AMINOTRANSFERASE 112 U/L (12-78); ALKALINE PHOSPHATASE 142 U/L (46-116); ASPARTATE AMINOTRANSFERASE 83 U/L (15-37); BILIRUBIN,TOTAL 0.5 mg/dL (0.1-1.0); TOTAL PROTEIN, SERUM 7.6 g/dL (6.4-8.2)
[2020-02-18 17:50] VITALS: BP 136/81
[2020-02-18] MEDS ORDERED: IBUPROFEN 600 MG TABLET PO ONE (18:00)
[2020-02-18 19:51] LABS: AMPHET/METH SCREEN,URINE NEGATIVE (NEGATIVE); BARBITURATE SCREEN, URINE NEGATIVE (NEGATIVE); BENZODIAZEPINES SCREEN,URINE POSITIVE (NEGATIVE); CANNABINOID SCREEN,URINE NEGATIVE (NEGATIVE); COCAINE SCREEN,URINE NEGATIVE (NEGATIVE); METHADONE SCREEN, URINE NEGATIVE (NEGATIVE); OPIATE SCREEN,URINE NEGATIVE (NEGATIVE)
[2020-02-18 20:00] LABS: PHENCYCLIDINE SCREEN,URINE NEGATIVE (NEGATIVE)
== END 2020-02-18 18:49 | disposition home or self-care (01) ==
LOC: EMS 15:32
DX: F10.239 Alcohol dependence with withdrawal, unspecified (principal); I10 Essential (primary) hypertension; J44.9 Chronic obstructive pulmonary disease, unspecified; F17.210 Nicotine dependence, cigarettes, uncomplicated; F15.90 Other stimulant use, unspecified, uncomplicated; Z79.899 Other long term (current) drug therapy; Z88.6 Allergy status to analgesic agent; Z88.8 Allergy status to other drugs, medicaments and biological substances
CPT/HCPCS: 36415; 80053; 80307; 85025; 96365; 96366; 99284; G0480; J3411; J3475; J3490 ×2; J7030

== ENCOUNTER 2020-03-24 13:13 | Emergency (ER) | payer OTHER ==
[~2020-03-24] VITALS: Ht 170.2 cm; Wt 56.8 kg
[2020-03-24 15:13] VITALS: BP 110/70
[2020-03-24 15:31] LABS: BASOPHILS % (AUTO) 0.3 % (0.0-2.0); HEMATOCRIT 49.1 % (41-53); LYMPHOCYTES # (AUTO) 1.5 K/uL (1.0-4.8); LYMPHOCYTES % (AUTO) 11.8 % (22.0-44.0); MEAN CORPUSCULAR HEMOGLOBIN 33.5 pg (26.0-34.0); MEAN CORPUSCULAR HGB CONC 32.6 G/dL (31.0-37.0); MEAN CORPUSCULAR VOLUME 103 fL (80-100); MONOCYTES # (AUTO) 0.7 K/uL (0.1-1.0); NEUTROPHILS % (AUTO) 80.9 % (40.0-70.0); PLATELET COUNT (AUTO) 306 K/uL (150-450); RED BLOOD CELL COUNT(AUTO) 4.78 MIL/uL (4.50-5.90); RED CELL DISTRIBUTION WIDTH 13.7 % (11.5-14.5)
[2020-03-24 15:41] LABS: ANION GAP 7 mmol/L (8-16); CALCIUM, TOTAL 9.5 mg/dL (8.8-10.5); CARBON DIOXIDE 30 mmol/L (22-29); CHLORIDE 101 mmol/L (98-107); CREATININE 0.96 mg/dL (0.60-1.30); GLOMERULAR FILTR. RATE CALC > 60 mL/min (>60); GLUCOSE,RANDOM 89 mg/dL (70-110); POTASSIUM 4.5 mmol/L (3.5-5.1); SODIUM SERUM 138 mmol/L (136-145); UREA NITROGEN, BLOOD 18 mg/dL (7-18)
[2020-03-24 16:06] LABS: ALANINE AMINOTRANSFERASE 173 U/L (12-78); ALKALINE PHOSPHATASE 145 U/L (46-116); ASPARTATE AMINOTRANSFERASE 78 U/L (15-37); BILIRUBIN,TOTAL 0.3 mg/dL (0.1-1.0); CREATINE KINASE, TOTAL ONLY 200 U/L (39-308); TOTAL PROTEIN, SERUM 8.3 g/dL (6.4-8.2)
== END 2020-03-24 16:25 | disposition home or self-care (01) ==
LOC: EMS 13:13
DX: S00.03XA Contusion of scalp, initial encounter (principal); K70.30 Alcoholic cirrhosis of liver without ascites; F10.129 Alcohol abuse with intoxication, unspecified; R41.82 Altered mental status, unspecified; F17.210 Nicotine dependence, cigarettes, uncomplicated; J45.909 Unspecified asthma, uncomplicated; I10 Essential (primary) hypertension; F20.9 Schizophrenia, unspecified; F19.90 Other psychoactive substance use, unspecified, uncomplicated; Z88.8 Allergy status to other drugs, medicaments and biological substances; Z88.5 Allergy status to narcotic agent; W19.XXXA Unspecified fall, initial encounter; Y93.89 Activity, other specified; Y92.89 Other specified places as the place of occurrence of the external cause; Y99.8 Other external cause status; Y90.8 Blood alcohol level of 240 mg/100 ml or more
CPT/HCPCS: 70450; 71045; 80053; 82550; 82962; 84484; 85025; 93005; 99285; 99406; G0480

== ENCOUNTER 2020-04-05 06:30 | Emergency (ER) | payer OTHER ==
[~2020-04-05] VITALS: Ht 170.2 cm; Wt 54.5 kg
[2020-04-05 06:42] VITALS: BP 145/99
[2020-04-05] MEDS ORDERED: ONDANSETRON HCL 4 MG/2 ML VIAL IVP ONE (07:45)
[2020-04-05] MEDS ORDERED: LORazepam 2 MG/ML VIAL IVP ONE (07:45)
[2020-04-05] MEDS ORDERED: SODIUM CHLORIDE 0.9% 1,000 ML IV ONE (07:45)
[2020-04-05] MEDS ORDERED: PB/HYOSCY/ATR/SCOP/LIDO/MAALOX 55 ML BOTTLE PO ONE (07:45)
[2020-04-05 08:47] LABS: BASOPHILS % (AUTO) 0.4 % (0.0-2.0); EOSINOPHILS % (AUTO) 3.8 % (1.0-6.0); HEMATOCRIT 43.7 % (41-53); HEMOGLOBIN 14.7 g/dL (13.5-17.5); LYMPHOCYTES # (AUTO) 1.8 K/uL (1.0-4.8); LYMPHOCYTES % (AUTO) 23.7 % (22.0-44.0); MEAN CORPUSCULAR HEMOGLOBIN 34.1 pg (26.0-34.0); MEAN CORPUSCULAR HGB CONC 33.7 G/dL (31.0-37.0); MEAN CORPUSCULAR VOLUME 101 fL (80-100); MONOCYTES # (AUTO) 0.5 K/uL (0.1-1.0); MONOCYTES % (AUTO) 7.1 % (2.0-9.0); NEUTROPHILS # (AUTO) 4.8 K/uL (1.8-7.7); PLATELET COUNT (AUTO) 296 K/uL (150-450); RED BLOOD CELL COUNT(AUTO) 4.31 MIL/uL (4.50-5.90); RED CELL DISTRIBUTION WIDTH 13.8 % (11.5-14.5)
[2020-04-05 08:57] LABS: ANION GAP 3 mmol/L (8-16); CALCIUM, TOTAL 8.4 mg/dL (8.8-10.5); CARBON DIOXIDE 33 mmol/L (22-29); CHLORIDE 106 mmol/L (98-107); CREATININE 0.74 mg/dL (0.60-1.30); GLOMERULAR FILTR. RATE CALC > 60 mL/min (>60); GLUCOSE,RANDOM 110 mg/dL (70-110); SODIUM SERUM 142 mmol/L (136-145); UREA NITROGEN, BLOOD 9 mg/dL (7-18)
[2020-04-05] MEDS ORDERED: POTASSIUM CHLORIDE 20 MEQ ER TABLET PO ONE (09:00)
[2020-04-05 09:03] LABS: ALANINE AMINOTRANSFERASE 51 U/L (12-78); ALBUMIN 3.5 g/dL (3.4-5.0); ALKALINE PHOSPHATASE 123 U/L (46-116); ASPARTATE AMINOTRANSFERASE 32 U/L (15-37); BILIRUBIN,TOTAL 0.5 mg/dL (0.1-1.0); LIPASE 287 U/L (73-393); PROTHROMBIN TIME 10.2 SEC (9.4-11.6); TOTAL PROTEIN, SERUM 6.9 g/dL (6.4-8.2)
== END 2020-04-05 12:16 | disposition home or self-care (01) ==
LOC: EMS 06:34
DX: R10.12 Left upper quadrant pain (principal); E86.0 Dehydration; J45.909 Unspecified asthma, uncomplicated; I10 Essential (primary) hypertension; F20.9 Schizophrenia, unspecified; F17.210 Nicotine dependence, cigarettes, uncomplicated; F19.90 Other psychoactive substance use, unspecified, uncomplicated; Z88.5 Allergy status to narcotic agent; Z88.6 Allergy status to analgesic agent
CPT/HCPCS: 36415; 74022; 80053; 83690; 85025; 85610; 96361; 96374; 96375; 99284; G0480; J2060; J2405; J7030

== ENCOUNTER 2020-04-08 17:22 | Emergency (ER) | payer OTHER | END 2020-04-09 01:54 | disposition left against medical advice (07) | LOC: EMS 17:22 | DX: F10.231 Alcohol dependence with withdrawal delirium (principal); Y90.9 Presence of alcohol in blood, level not specified; Z53.21 Procedure and treatment not carried out due to patient leaving prior to being seen by health care provider ==

== ENCOUNTER 2020-07-28 18:44 | Emergency (ER) | payer OTHER ==
[~2020-07-28] VITALS: Ht 177.8 cm; Wt 63.6 kg
[~2020-07-28 18:44] MED LIST changes: -ALBU8HFA IH; +CLON1PAT14 TD; +FAMO20 PO; -LIB10 PO; +METO25 PO; -THIA100T80 PO
[2020-07-28] MEDS ORDERED: 0.9% SODIUM CHLORIDE 10 ML SYRINGE IVP PRN ×2 (19:00→21:15)
[2020-07-28] MEDS ORDERED: MethylPREDNISolone SOD SUCC 125 MG/2 ML VIAL IVP ONE (19:00)
[2020-07-28] MEDS ORDERED: HYD25 PO (19:03)
[2020-07-28] MEDS ORDERED: MULT-1336 PO (19:03)
[2020-07-28] MEDS ORDERED: CLON0.2T2 PO (19:03)
[2020-07-28] MEDS ORDERED: IBUP-2077 PO (19:03)
[2020-07-28] MEDS ORDERED: FLUT1BLS3 IH (19:03)
[2020-07-28 19:18] LABS: ABG BASE EXCESS 7.4 mmol/L (-2.0-3.0); ABG CARBOXYHEMOGLOBIN 0.6 % (0.0-1.5); ABG HCO3 28.6 mmol/L (22.0-26.0); ABG METHEMOGLOBIN 0.4 % (0.0-1.5); ABG OXYGEN CONTENT 19.6 mL/dL (15.0-23.0); ABG OXYGEN SATURATION 98.1 % (95.0-98.0); ABG OXYHEMOGLOBIN 97.1 % (94.0-100.0); ABG TOTAL HEMOGLOBIN 14.2 G/dL (12.0-18.0); PO2, ARTERIAL BG 138.3 mmHg (92.0-100.0); SOURCE, BLOOD GAS ARTERIAL; TEMPERATURE, FAHRENHEIT, BG 98.3 FAHREN (96.0-98.6)
[2020-07-28 19:24] LABS: COVID AG,FIA SOURCE NASOPHARYNGEAL
[2020-07-28] MEDS ORDERED: IPRATROPIUM BROMIDE 0.5 MG/2.5 ML NEB SOLUTION NEB ONE (19:30)
[2020-07-28] MEDS ORDERED: ALBUTEROL SULFATE 5 MG/ML 20 ML NEB SOLN [BULK] NEB ONE (19:30)
[2020-07-28 19:44] LABS: INFLUENZA TYPE A NEGATIVE FOR TYPE A (NEGATIVE); INFLUENZA TYPE B NEGATIVE FOR TYPE B (NEGATIVE)
[2020-07-28] MEDS ORDERED: LORazepam 2 MG/ML VIAL IVP ONE (19:45)
[2020-07-28 20:43] LABS: BASOPHILS % (AUTO) 0.5 % (0.0-2.0); EOSINOPHILS % (AUTO) 3.8 % (1.0-6.0); HEMOGLOBIN 14.4 g/dL (13.5-17.5); LYMPHOCYTES % (AUTO) 12.9 % (22.0-44.0); MEAN CORPUSCULAR HEMOGLOBIN 32.3 pg (26.0-34.0); MEAN CORPUSCULAR HGB CONC 32.7 G/dL (31.0-37.0); MEAN CORPUSCULAR VOLUME 99 fL (80-100); MONOCYTES # (AUTO) 0.3 K/uL (0.1-1.0); MONOCYTES % (AUTO) 4.1 % (2.0-9.0); NEUTROPHILS # (AUTO) 6.3 K/uL (1.8-7.7); NEUTROPHILS % (AUTO) 78.7 % (40.0-70.0); PLATELET COUNT (AUTO) 269 K/uL (150-450); RED BLOOD CELL COUNT(AUTO) 4.46 MIL/uL (4.50-5.90)
[2020-07-28 20:50] LABS: ANION GAP 7 mmol/L (8-16); CALCIUM, TOTAL 8.3 mg/dL (8.8-10.5); CARBON DIOXIDE 33 mmol/L (22-29); CHLORIDE 104 mmol/L (98-107); CREATININE 0.75 mg/dL (0.60-1.30); GLOMERULAR FILTR. RATE CALC > 60 mL/min (>60); GLUCOSE,RANDOM 128 mg/dL (70-110); POTASSIUM 3.5 mmol/L (3.5-5.1); SODIUM SERUM 144 mmol/L (136-145); UREA NITROGEN, BLOOD 11 mg/dL (7-18)
[2020-07-28 20:54] LABS: D-DIMER 0.76 mg/L FEU (0.00-0.50); PROTHROMBIN TIME 10.3 SEC (9.4-11.6)
[2020-07-28 20:56] LABS: ALANINE AMINOTRANSFERASE 48 U/L (12-78); ALBUMIN 3.5 g/dL (3.4-5.0); ALKALINE PHOSPHATASE 114 U/L (46-116); ASPARTATE AMINOTRANSFERASE 33 U/L (15-37); BILIRUBIN,TOTAL 1.1 mg/dL (0.1-1.0); TOTAL PROTEIN, SERUM 6.9 g/dL (6.4-8.2)
[2020-07-28 21:07] LABS: B-TYPE NATRIURETIC PEPTIDE 69 pg/mL (0-100)
[2020-07-28] MEDS ORDERED: ACETAMINOPHEN 325 MG TABLET PO PRN ×3 (21:15→23:30)
[2020-07-28] MEDS ORDERED: ONDANSETRON HCL 4 MG/2 ML VIAL IVP PRN ×2 (21:15→23:30)
[2020-07-28 21:18] LABS: LACTIC ACID 3.1 mmol/L (0.4-2.0)
[2020-07-28 21:22] LABS: ABG PH 7.258 (7.350-7.450)
[2020-07-28 21:23] LABS: ABG PCO2 79 mmHg (35-45)
[2020-07-28] MEDS ORDERED: IOHEXOL 350 MG/ML 100 ML VIAL ONE (21:26)
[2020-07-28] MEDS ORDERED: SODIUM CHLORIDE 0.9% 100 ML ONE (21:26)
[2020-07-28 21:30] LABS: SITE, BLOOD GAS RT BRACHIAL
[2020-07-28] MEDS ORDERED: SODIUM CHLORIDE 0.9% 1,000 ML IV ONE (21:30)
[2020-07-28 21:55] LABS: APPEARANCE,URINE CLEAR (CLEAR); BILIRUBIN,URINE NEGATIVE (NEGATIVE); GLUCOSE, URINE (UA) NEGATIVE (NEGATIVE); KETONES,URINE NEGATIVE (NEGATIVE); LEUKOCYTE ESTERASE ,URINE NEGATIVE (NEGATIVE); NITRATE,URINE NEGATIVE (NEGATIVE); OCCULT BLOOD,URINE NEGATIVE (NEGATIVE); PH,URINE 5.5 (5.0-8.0); PROTEIN,URINE NEGATIVE (NEGATIVE); UROBILINOGEN,URINE 0.2 mg/dL (<=1.0)
[2020-07-28 22:00] LABS: AMPHET/METH SCREEN,URINE POSITIVE (NEGATIVE); BARBITURATE SCREEN, URINE NEGATIVE (NEGATIVE); BENZODIAZEPINES SCREEN,URINE POSITIVE (NEGATIVE); CANNABINOID SCREEN,URINE NEGATIVE (NEGATIVE); COCAINE SCREEN,URINE NEGATIVE (NEGATIVE); METHADONE SCREEN, URINE NEGATIVE (NEGATIVE); OPIATE SCREEN,URINE NEGATIVE (NEGATIVE)
[2020-07-28 22:01] LABS: PHENCYCLIDINE SCREEN,URINE NEGATIVE (NEGATIVE)
[2020-07-28 22:09] LABS: ABG A-A DIFF O2 57.2 mmHg (10-20.0); ABG BASE EXCESS 0.4 mmol/L (-2.0-3.0); ABG CARBOXYHEMOGLOBIN 0.3 % (0.0-1.5); ABG HCO3 23.6 mmol/L (22.0-26.0); ABG METHEMOGLOBIN 0.4 % (0.0-1.5); ABG OXYGEN CONTENT 18.7 mL/dL (15.0-23.0); ABG OXYGEN SATURATION 94.2 % (95.0-98.0); ABG OXYHEMOGLOBIN 93.5 % (94.0-100.0); ABG TOTAL HEMOGLOBIN 14.2 G/dL (12.0-18.0); PO2, ARTERIAL BG 86.3 mmHg (92.0-100.0); SOURCE, BLOOD GAS ARTERIAL; TEMPERATURE, FAHRENHEIT, BG 98.5 FAHREN (96.0-98.6)
[2020-07-28 22:10] LABS: ABG PCO2 60 mmHg (35-45); ABG PH 7.274 (7.350-7.450); SITE, BLOOD GAS RT BRACHIAL
[2020-07-28 22:11] LABS: O2 DEVICE,BLOOD GAS BIPAP (ROOM AIR)
[2020-07-28] MEDS ORDERED: MAGNESIUM HYDROXIDE SUSPENSION 30 ML UDCUP PO PRN (23:30)
[2020-07-28] MEDS ORDERED: IPRATROPIUM BROMIDE 0.5 MG/2.5 ML NEB SOLUTION NEB PRN (23:30)
[2020-07-28] MEDS ORDERED: ALBUTEROL SULFATE 2.5 MG/0.5 ML NEB SOLUTION NEB PRN (23:30)
[2020-07-28] MEDS ORDERED: ZOLPIDEM TARTRATE 5 MG TABLET PO PRN (23:30)
[2020-07-28] MEDS ORDERED: LORazepam 2 MG TABLET PO ONE (23:30)
[2020-07-28] MEDS ORDERED: BISACODYL 10 MG RECTAL RECTAL SUPPOSITORY PR PRN (23:30)
[2020-07-28] MEDS: MethylPREDNISolone SOD SUCC 125 MG/2 ML VIAL IVP SCH (23:44)
[2020-07-28] MEDS: HEPARIN SODIUM,PORCINE 5,000 UNITS/ML VIAL SQ SCH (23:44)
[2020-07-29] MEDS ORDERED: MethylPREDNISolone SOD SUCC 40 MG/ML VIAL IVP ONE
[2020-07-29 00:03] LABS: O2 DEVICE,BLOOD GAS AREOSOL (ROOM AIR)
[2020-07-29] MEDS ORDERED: SODIUM CHLORIDE 0.9% 1,000 ML IV ONE (00:30)
[2020-07-29] MEDS ORDERED: CefTRIAXone 1 GM/DEXTROSE 50 ML IV SCH (01:00)
[2020-07-29] MEDS ORDERED: IPRATROPIUM BROMIDE 0.5 MG/2.5 ML NEB SOLUTION NEB SCH (02:00)
[2020-07-29] MEDS ORDERED: ALBUTEROL SULFATE 2.5 MG/0.5 ML NEB SOLUTION NEB SCH (02:00)
[2020-07-29] MEDS ORDERED: AZITHROMYCIN 500 MG/NS 250 ML IV SCH (02:00)
[2020-07-29] MEDS: IPRATROPIUM BROMIDE 0.5 MG/2.5 ML NEB SOLUTION NEB SCH ×2 (02:36→07:18)
[2020-07-29] MEDS: ALBUTEROL SULFATE 2.5 MG/0.5 ML NEB SOLUTION NEB SCH ×2 (02:36→07:18)
[2020-07-29 06:07] LABS: ABG A-A DIFF O2 223.7 mmHg (10-20.0)
[2020-07-29] MEDS: MethylPREDNISolone SOD SUCC 125 MG/2 ML VIAL IVP SCH (06:07)
[2020-07-29 07:58] LABS: BASOPHILS % (AUTO) 0.2 % (0.0-2.0); EOSINOPHILS % (AUTO) 0.1 % (1.0-6.0); HEMATOCRIT 39.4 % (41-53); LYMPHOCYTES # (AUTO) 0.2 K/uL (1.0-4.8); LYMPHOCYTES % (AUTO) 6.5 % (22.0-44.0); MEAN CORPUSCULAR HEMOGLOBIN 32.4 pg (26.0-34.0); MEAN CORPUSCULAR HGB CONC 32.9 G/dL (31.0-37.0); MEAN CORPUSCULAR VOLUME 99 fL (80-100); MONOCYTES % (AUTO) 1.1 % (2.0-9.0); NEUTROPHILS # (AUTO) 2.6 K/uL (1.8-7.7); PLATELET COUNT (AUTO) 258 K/uL (150-450); RED BLOOD CELL COUNT(AUTO) 3.99 MIL/uL (4.50-5.90); RED CELL DISTRIBUTION WIDTH 14.3 % (11.5-14.5)
[2020-07-29 07:59] LABS: NEUTROPHILS % (AUTO) 92.1 % (40.0-70.0)
[2020-07-29 08:06] LABS: ALANINE AMINOTRANSFERASE 61 U/L (12-78); ALBUMIN 3.4 g/dL (3.4-5.0); ALKALINE PHOSPHATASE 115 U/L (46-116); ANION GAP 10 mmol/L (8-16); ASPARTATE AMINOTRANSFERASE 42 U/L (15-37); BILIRUBIN,TOTAL 0.7 mg/dL (0.1-1.0); CALCIUM, TOTAL 8.3 mg/dL (8.8-10.5); CARBON DIOXIDE 31 mmol/L (22-29); CHLORIDE 105 mmol/L (98-107); CREATININE 0.91 mg/dL (0.60-1.30); GLOMERULAR FILTR. RATE CALC > 60 mL/min (>60); GLUCOSE,RANDOM 154 mg/dL (70-110); POTASSIUM 3.9 mmol/L (3.5-5.1); SODIUM SERUM 146 mmol/L (136-145); TOTAL PROTEIN, SERUM 6.8 g/dL (6.4-8.2); UREA NITROGEN, BLOOD 8 mg/dL (7-18)
[2020-07-29 08:45] VITALS: BP 131/96
[2020-07-29 09:00] VITALS: BP 131/96
[2020-07-29] MEDS ORDERED: FAMOTIDINE 20 MG TABLET PO SCH (09:00)
[2020-07-29] MEDS ORDERED: PANTOPRAZOLE SODIUM 40 MG DR TABLET PO SCH (09:00)
[2020-07-29] MEDS ORDERED: DOCUSATE SODIUM 100 MG CAPSULE PO SCH (09:00)
[2020-07-29] MEDS ORDERED: MULTIVITAMINS, THERAPEUTIC TABLET PO SCH (09:00)
[2020-07-29] MEDS: HEPARIN SODIUM,PORCINE 5,000 UNITS/ML VIAL SQ SCH (09:23)
[2020-07-29 09:59] VITALS: BP 138/97
== END 2020-07-29 10:08 | disposition left against medical advice (07) ==
LOC: EMS 18:44
DX: J44.1 Chronic obstructive pulmonary disease with (acute) exacerbation (principal); J96.01 Acute respiratory failure with hypoxia; E87.2 Acidosis; F20.9 Schizophrenia, unspecified; F17.210 Nicotine dependence, cigarettes, uncomplicated; F19.90 Other psychoactive substance use, unspecified, uncomplicated; Z20.822 Contact with and (suspected) exposure to COVID-19; Z88.5 Allergy status to narcotic agent; Z88.8 Allergy status to other drugs, medicaments and biological substances
CPT/HCPCS: 36415; 36600; 71045; 78582; 80053; 80307; 81003; 82805; 83605; 83880; 84484; 85025; 85379; 85610; 85730; 87040; 87426; 87804; 93005; 94640 ×2; 94644; 94660; 96361; 96365; 96367; 96372; 96375; 96376; 99291; A9575; G0480; J0456; J0696; J1644 ×2; J2060; J2930 ×2; J7050; J7611; J7613

== ENCOUNTER 2020-11-18 16:13 | Inpatient (IN) | payer OTHER ==
[~2020-11-18] VITALS: Ht 180.3 cm; Wt 50.6 kg
[~2020-11-18 16:13] MED LIST changes: +CLON0.2T2 PO; -CLON1PAT14 TD; +FLUT1BLS3 IH; +HYD25 PO; +IBUP-2077 PO; +MULT-1336 PO
[2020-11-18] MEDS ORDERED: IPRATROPIUM BROMIDE 0.5 MG/2.5 ML NEB SOLUTION NEB ONE (16:30)
[2020-11-18] MEDS ORDERED: LORazepam 2 MG/ML VIAL IVP ONE ×3 (16:30→20:00)
[2020-11-18] MEDS ORDERED: MethylPREDNISolone SOD SUCC 125 MG/2 ML VIAL IVP ONE (16:30)
[2020-11-18] MEDS ORDERED: DiphenhydrAMINE HCL 50 MG/ML VIAL IVP ONE (16:30)
[2020-11-18] MEDS ORDERED: ALBUTEROL SULFATE 2.5 MG/0.5 ML NEB SOLUTION NEB ONE (16:30)
[2020-11-18 17:12] LABS: COVID AG,FIA SOURCE NASAL SWAB
[2020-11-18 17:20] LABS: BASOPHILS % (AUTO) 0.5 % (0.0-2.0); EOSINOPHILS % (AUTO) 4.3 % (1.0-6.0); HEMATOCRIT 47.5 % (41-53); HEMOGLOBIN 15.5 g/dL (13.5-17.5); LYMPHOCYTES # (AUTO) 2.3 K/uL (1.0-4.8); MEAN CORPUSCULAR HGB CONC 32.6 G/dL (31.0-37.0); MEAN CORPUSCULAR VOLUME 89 fL (80-100); MONOCYTES # (AUTO) 0.6 K/uL (0.1-1.0); MONOCYTES % (AUTO) 6.6 % (2.0-9.0); NEUTROPHILS # (AUTO) 5.5 K/uL (1.8-7.7); NEUTROPHILS % (AUTO) 62.6 % (40.0-70.0); PLATELET COUNT (AUTO) 393 K/uL (150-450); RED BLOOD CELL COUNT(AUTO) 5.35 MIL/uL (4.50-5.90); RED CELL DISTRIBUTION WIDTH 13.9 % (11.5-14.5)
[2020-11-18 17:31] LABS: ANION GAP 10 mmol/L (8-16); CALCIUM, TOTAL 8.7 mg/dL (8.8-10.5); CARBON DIOXIDE 33 mmol/L (22-29); CHLORIDE 102 mmol/L (98-107); CREATININE 0.66 mg/dL (0.60-1.30); GLOMERULAR FILTR. RATE CALC > 60 mL/min (>60); GLUCOSE,RANDOM 101 mg/dL (70-110); POTASSIUM 3.2 mmol/L (3.5-5.1); SODIUM SERUM 145 mmol/L (136-145); UREA NITROGEN, BLOOD 7 mg/dL (7-18)
[2020-11-18 17:34] LABS: ALANINE AMINOTRANSFERASE 46 U/L (12-78); ALBUMIN 3.9 g/dL (3.4-5.0); ALKALINE PHOSPHATASE 226 U/L (46-116); ASPARTATE AMINOTRANSFERASE 24 U/L (15-37); BILIRUBIN,TOTAL 0.6 mg/dL (0.1-1.0)
[2020-11-18] MEDS ORDERED: SODIUM CHLORIDE 0.9% 1,000 ML IV ONE (18:15)
[2020-11-18 20:05] LABS: AMPHET/METH SCREEN,URINE NEGATIVE (NEGATIVE); BARBITURATE SCREEN, URINE NEGATIVE (NEGATIVE); BENZODIAZEPINES SCREEN,URINE NEGATIVE (NEGATIVE); CANNABINOID SCREEN,URINE NEGATIVE (NEGATIVE); COCAINE SCREEN,URINE NEGATIVE (NEGATIVE); METHADONE SCREEN, URINE NEGATIVE (NEGATIVE); OPIATE SCREEN,URINE POSITIVE (NEGATIVE)
[2020-11-18 20:06] LABS: PHENCYCLIDINE SCREEN,URINE NEGATIVE (NEGATIVE)
[2020-11-18] MEDS ORDERED: MAGNESIUM SULFATE 4 GM/WATER 100 ML IV PRN (21:00)
[2020-11-18] MEDS ORDERED: ACETAMINOPHEN 325 MG TABLET PO PRN (21:00)
[2020-11-18] MEDS ORDERED: ALBUTEROL SULFATE HFA 90 MCG/PUFF 8 GM INHALER IH PRN (21:00)
[2020-11-18] MEDS ORDERED: POTASSIUM CHLORIDE 20 MEQ ER TABLET PO PRN (21:00)
[2020-11-18] MEDS ORDERED: ONDANSETRON HCL 4 MG/2 ML VIAL IVP PRN (21:00)
[2020-11-18] MEDS ORDERED: POTASSIUM CHL 10 MEQ/WATER 50 ML IV PRN (21:00)
[2020-11-18] MEDS ORDERED: MAGNESIUM HYDROXIDE SUSPENSION 30 ML UDCUP PO PRN (21:00)
[2020-11-18] MEDS ORDERED: MAGNESIUM OXIDE 400 MG TABLET PO PRN (21:00)
[2020-11-18] MEDS ORDERED: MAGNESIUM SULFATE 2 GM/WATER 50 ML IV PRN (21:00)
[2020-11-18] MEDS ORDERED: MAGNESIUM SULFATE 2 GM, MVI, ADULT NO.1 WITH VIT K 10 ML, THIAMINE 100 MG, FOLIC ACID 1... IV ONE ×5 (21:30)
[2020-11-18 21:52] VITALS: BP 125/80
[2020-11-18 22:00] LABS: ALBUMIN 3.7 g/dL (3.4-5.0); MAGNESIUM 1.9 mg/dL (1.80-2.40)
[2020-11-19] VITALS (7 sets, daily range): BP systolic 114–155; BP diastolic 62–98
[2020-11-19] MEDS: HEPARIN SODIUM,PORCINE 5,000 UNITS/ML VIAL SQ SCH ×4 (00:16→23:36)
[2020-11-19] MEDS: LORazepam 2 MG/ML VIAL IVP PRN ×5 (02:59→22:15)
[2020-11-19 07:50] LABS: MAGNESIUM 2.7 mg/dL (1.80-2.40)
[2020-11-19 08:22] LABS: POTASSIUM 3.5 mmol/L (3.5-5.1)
[2020-11-19] MEDS: FAMOTIDINE 20 MG TABLET PO SCH (09:03)
[2020-11-19] MEDS: MethylPREDNISolone SOD SUCC 125 MG/2 ML VIAL IVP SCH ×3 (09:42→23:36)
[2020-11-19] MEDS: HYDROCODONE/ACETAMINOPHEN 5-325 MG TABLET PO PRN ×3 (09:42→22:18)
[2020-11-19 13:29] LABS: PHOSPHORUS 2.4 mg/dL (2.5-4.9)
[2020-11-20] MEDS: LORazepam 2 MG/ML VIAL IVP PRN ×4 (04:19→22:46)
[2020-11-20 04:31] VITALS: BP 151/78
[2020-11-20] MEDS: HYDROCODONE/ACETAMINOPHEN 5-325 MG TABLET PO PRN ×3 (06:00→18:50)
[2020-11-20 07:54] VITALS: BP 159/100
[2020-11-20] MEDS: MethylPREDNISolone SOD SUCC 125 MG/2 ML VIAL IVP SCH ×2 (08:37→21:56)
[2020-11-20] MEDS: THIAMINE 100 MG TABLET PO SCH (08:37)
[2020-11-20] MEDS: HEPARIN SODIUM,PORCINE 5,000 UNITS/ML VIAL SQ SCH ×2 (08:37→17:17)
[2020-11-20] MEDS: FAMOTIDINE 20 MG TABLET PO SCH (08:37)
[2020-11-20] MEDS: FOLIC ACID 1 MG TABLET PO SCH (08:37)
[2020-11-20] MEDS: CYANOCOBALAMIN 100 MCG TABLET PO SCH (08:37)
[2020-11-20] MEDS: DIAZEPAM 5 MG TABLET PO PRN ×2 (09:41→21:56)
[2020-11-20 11:35] VITALS: BP 147/100
[2020-11-20 15:51] VITALS: BP 155/98
[2020-11-20 21:01] VITALS: BP 138/87
[2020-11-21] VITALS: BP 135/80
[2020-11-21] MEDS: HYDROCODONE/ACETAMINOPHEN 5-325 MG TABLET PO PRN ×3 (02:25→18:29)
[2020-11-21] MEDS: HEPARIN SODIUM,PORCINE 5,000 UNITS/ML VIAL SQ SCH ×3 (02:25→15:25)
[2020-11-21] MEDS: LORazepam 2 MG/ML VIAL IVP PRN ×4 (03:14→22:13)
[2020-11-21 04:12] VITALS: BP 139/84
[2020-11-21 07:29] VITALS: BP 134/90
[2020-11-21] MEDS: FAMOTIDINE 20 MG TABLET PO SCH (08:12)
[2020-11-21] MEDS: MethylPREDNISolone SOD SUCC 125 MG/2 ML VIAL IVP SCH (08:12)
[2020-11-21] MEDS: FOLIC ACID 1 MG TABLET PO SCH (08:13)
[2020-11-21] MEDS: THIAMINE 100 MG TABLET PO SCH (08:13)
[2020-11-21] MEDS: CYANOCOBALAMIN 100 MCG TABLET PO SCH (08:13)
[2020-11-21] MEDS: DIAZEPAM 5 MG TABLET PO PRN ×2 (08:43→20:30)
[2020-11-21] MEDS: PredniSONE 20 MG TABLET PO SCH (11:07)
[2020-11-21 11:13] VITALS: BP 149/96
[2020-11-21 15:40] VITALS: BP 149/91
[2020-11-21 20:04] VITALS: BP 141/99
[2020-11-22 00:06] VITALS: BP 130/78
[2020-11-22] MEDS: HYDROCODONE/ACETAMINOPHEN 5-325 MG TABLET PO PRN ×3 (00:31→11:28)
[2020-11-22] MEDS: HEPARIN SODIUM,PORCINE 5,000 UNITS/ML VIAL SQ SCH ×2 (00:32→08:06)
[2020-11-22] MEDS: LORazepam 2 MG/ML VIAL IVP PRN ×3 (02:26→11:27)
[2020-11-22 05:17] VITALS: BP 132/84
[2020-11-22 08:00] VITALS: BP 128/73
[2020-11-22] MEDS: FAMOTIDINE 20 MG TABLET PO SCH (08:06)
[2020-11-22] MEDS: FOLIC ACID 1 MG TABLET PO SCH (08:06)
[2020-11-22] MEDS: THIAMINE 100 MG TABLET PO SCH (08:07)
[2020-11-22] MEDS: CYANOCOBALAMIN 100 MCG TABLET PO SCH (08:07)
[2020-11-22] MEDS: PredniSONE 20 MG TABLET PO SCH (08:07)
[2020-11-22 11:23] VITALS: BP 124/94
== END 2020-11-22 13:15 | disposition home or self-care (01) | DRG 140 ==
LOC: EMS 16:15 → 5N 20:00 → 5S 11-21 18:10
PROVIDERS: ADMIT Internal Medicine; ATTEND Internal Medicine
DX: J44.1 Chronic obstructive pulmonary disease with (acute) exacerbation (principal); J96.01 Acute respiratory failure with hypoxia; E43 Unspecified severe protein-calorie malnutrition; Z20.822 Contact with and (suspected) exposure to COVID-19; F20.9 Schizophrenia, unspecified; I10 Essential (primary) hypertension; Z68.1 Body mass index [BMI] 19.9 or less, adult; F17.210 Nicotine dependence, cigarettes, uncomplicated; Z91.14 Patient's other noncompliance with medication regimen; F19.10 Other psychoactive substance abuse, uncomplicated; F10.139 Alcohol abuse with withdrawal, unspecified; Y90.9 Presence of alcohol in blood, level not specified
CPT/HCPCS: 71045; 80053; 82040; 83735; 84100; 84132; 84484; 85025; 85379; 93005; 94640; 99291; G0480; J1200; J1644; J2060; J2930; J3411; J3475; J3490; J3535; J7030; 36415-L1; 36415-TC; J7613; U0003

== ENCOUNTER 2020-11-24 07:46 | Inpatient (IN) | payer OTHER ==
[~2020-11-24] VITALS: Ht 180.3 cm; Wt 46.9 kg
[~2020-11-24 07:46] MED LIST changes: -CLON0.2T2 PO; -HYD25 PO; -IBUP-2077 PO
[2020-11-24] MEDS ORDERED: MethylPREDNISolone SOD SUCC 125 MG/2 ML VIAL IVP ONE (08:45)
[2020-11-24] MEDS ORDERED: ALBUTEROL SULFATE 5 MG/ML 20 ML NEB SOLN [BULK] NEB ONE (08:45)
[2020-11-24] MEDS ORDERED: IPRATROPIUM BROMIDE 0.5 MG/2.5 ML NEB SOLUTION NEB ONE (08:45)
[2020-11-24 09:20] LABS: COVID AG,FIA SOURCE NASOPHARYNGEAL
[2020-11-24 09:21] LABS: BASOPHILS % (AUTO) 0.1 % (0.0-2.0); EOSINOPHILS % (AUTO) 3.6 % (1.0-6.0); HEMATOCRIT 52.7 % (41-53); HEMOGLOBIN 16.8 g/dL (13.5-17.5); LYMPHOCYTES # (AUTO) 1.5 K/uL (1.0-4.8); LYMPHOCYTES % (AUTO) 14.7 % (22.0-44.0); MEAN CORPUSCULAR HEMOGLOBIN 28.9 pg (26.0-34.0); MEAN CORPUSCULAR HGB CONC 31.9 G/dL (31.0-37.0); MEAN CORPUSCULAR VOLUME 91 fL (80-100); MONOCYTES # (AUTO) 0.7 K/uL (0.1-1.0); MONOCYTES % (AUTO) 7.1 % (2.0-9.0); NEUTROPHILS # (AUTO) 7.7 K/uL (1.8-7.7); NEUTROPHILS % (AUTO) 74.5 % (40.0-70.0); PLATELET COUNT (AUTO) 282 K/uL (150-450); RED BLOOD CELL COUNT(AUTO) 5.82 MIL/uL (4.50-5.90)
[2020-11-24 09:31] LABS: ANION GAP 5 mmol/L (8-16); CALCIUM, TOTAL 8.2 mg/dL (8.8-10.5); CARBON DIOXIDE 39 mmol/L (22-29); CHLORIDE 97 mmol/L (98-107); CREATININE 0.95 mg/dL (0.60-1.30); GLOMERULAR FILTR. RATE CALC > 60 mL/min (>60); GLUCOSE,RANDOM 94 mg/dL (70-110); SODIUM SERUM 141 mmol/L (136-145); UREA NITROGEN, BLOOD 18 mg/dL (7-18)
[2020-11-24 09:37] LABS: ALANINE AMINOTRANSFERASE 78 U/L (12-78); ALBUMIN 3.7 g/dL (3.4-5.0); ALKALINE PHOSPHATASE 156 U/L (46-116); ASPARTATE AMINOTRANSFERASE 31 U/L (15-37); BILIRUBIN,TOTAL 0.7 mg/dL (0.1-1.0); TOTAL PROTEIN, SERUM 7.8 g/dL (6.4-8.2)
[2020-11-24 09:45] LABS: B-TYPE NATRIURETIC PEPTIDE 975 pg/mL (0-100)
[2020-11-24] MEDS ORDERED: 0.9% SODIUM CHLORIDE 5 ML NEB SOLUTION NEB ONE (10:56)
[2020-11-24 12:33] LABS: AMPHET/METH SCREEN,URINE NEGATIVE (NEGATIVE); BARBITURATE SCREEN, URINE NEGATIVE (NEGATIVE); BENZODIAZEPINES SCREEN,URINE POSITIVE (NEGATIVE); CANNABINOID SCREEN,URINE NEGATIVE (NEGATIVE); COCAINE SCREEN,URINE NEGATIVE (NEGATIVE); METHADONE SCREEN, URINE NEGATIVE (NEGATIVE); OPIATE SCREEN,URINE NEGATIVE (NEGATIVE)
[2020-11-24 12:35] LABS: PHENCYCLIDINE SCREEN,URINE NEGATIVE (NEGATIVE)
[2020-11-24] MEDS ORDERED: FUROSEMIDE 40 MG/4 ML VIAL IVP ONE (12:45)
[2020-11-24] MEDS ORDERED: ASPIRIN 81 MG CHEWABLE TABLET PO ONE (12:45)
[2020-11-24] MEDS ORDERED: NITROGLYCERIN 2% (1 GM=INCH) PACKET TP ONE (12:45)
[2020-11-24] MEDS ORDERED: ONDANSETRON HCL 4 MG/2 ML VIAL IVP PRN (13:00)
[2020-11-24] MEDS ORDERED: ALBUTEROL SULFATE 2.5 MG/0.5 ML NEB SOLUTION NEB PRN (13:00)
[2020-11-24] MEDS ORDERED: MAGNESIUM SULFATE 2 GM/WATER 50 ML IV PRN (13:00)
[2020-11-24] MEDS ORDERED: POTASSIUM CHL 10 MEQ/WATER 50 ML IV PRN (13:00)
[2020-11-24] MEDS ORDERED: MAGNESIUM OXIDE 400 MG TABLET PO PRN (13:00)
[2020-11-24] MEDS ORDERED: MAGNESIUM SULFATE 4 GM/WATER 100 ML IV PRN (13:00)
[2020-11-24] MEDS ORDERED: POTASSIUM CHLORIDE 20 MEQ ER TABLET PO PRN (13:00)
[2020-11-24 13:27] LABS: ABG A-A DIFF O2 40.6 mmHg (10-20.0); ABG BASE EXCESS 7.7 mmol/L (-2.0-3.0); ABG CARBOXYHEMOGLOBIN 1.4 % (0.0-1.5); ABG HCO3 30.2 mmol/L (22.0-26.0); ABG METHEMOGLOBIN 0.3 % (0.0-1.5); ABG OXYGEN CONTENT 19.4 mL/dL (15.0-23.0); ABG OXYGEN SATURATION 88.3 % (95.0-98.0); ABG OXYHEMOGLOBIN 86.8 % (94.0-100.0); ABG PCO2 46 mmHg (35-45); ABG PH 7.454 (7.350-7.450); ABG TOTAL HEMOGLOBIN 15.9 G/dL (12.0-18.0); O2 DEVICE,BLOOD GAS ROOM AIR (ROOM AIR); PO2, ARTERIAL BG 53.9 mmHg (92.0-100.0); SITE, BLOOD GAS LFT RADIAL; SOURCE, BLOOD GAS ARTERIAL; TEMPERATURE, FAHRENHEIT, BG 98.6 FAHREN (96.0-98.6)
[2020-11-24] MEDS ORDERED: POTASSIUM CHLORIDE 20 MEQ ER TABLET PO ONE (13:30)
[2020-11-24] MEDS: PredniSONE 20 MG TABLET PO SCH (13:31)
[2020-11-24] MEDS: HEPARIN SODIUM,PORCINE 5,000 UNITS/ML VIAL SQ SCH ×2 (15:51→23:44)
[2020-11-24] MEDS: LORazepam 2 MG/ML VIAL IVP PRN ×3 (15:56→23:45)
[2020-11-24] MEDS: ACETAMINOPHEN 325 MG TABLET PO PRN (17:37)
[2020-11-24 18:15] VITALS: BP 138/101
[2020-11-24 19:41] VITALS: BP 140/92
[2020-11-24] MEDS: FAMOTIDINE 20 MG TABLET PO SCH (20:06)
[2020-11-24] MEDS: DOCUSATE SODIUM 100 MG CAPSULE PO SCH (20:06)
[2020-11-25] VITALS (9 sets, daily range): BP systolic 121–142; BP diastolic 75–102
[2020-11-25] MEDS: LORazepam 2 MG/ML VIAL IVP PRN (03:50)
[2020-11-25] MEDS: PredniSONE 20 MG TABLET PO SCH (07:43)
[2020-11-25] MEDS: MULTIVITAMINS WITH MINERALS, THERAPEUTIC TABLET PO SCH (07:43)
[2020-11-25] MEDS: HEPARIN SODIUM,PORCINE 5,000 UNITS/ML VIAL SQ SCH ×3 (07:44→23:22)
[2020-11-25] MEDS: FAMOTIDINE 20 MG TABLET PO SCH ×2 (07:44→20:12)
[2020-11-25] MEDS: DOCUSATE SODIUM 100 MG CAPSULE PO SCH ×2 (09:00→19:40)
[2020-11-25] MEDS: ACETAMINOPHEN 325 MG TABLET PO PRN (10:31)
[2020-11-26 04:51] VITALS: BP 114/84
[2020-11-26 07:21] VITALS: BP 117/82
[2020-11-26] MEDS: FAMOTIDINE 20 MG TABLET PO SCH ×2 (08:03→19:50)
[2020-11-26] MEDS: HEPARIN SODIUM,PORCINE 5,000 UNITS/ML VIAL SQ SCH ×2 (08:03→16:38)
[2020-11-26] MEDS: MULTIVITAMINS WITH MINERALS, THERAPEUTIC TABLET PO SCH (08:03)
[2020-11-26] MEDS: PredniSONE 20 MG TABLET PO SCH (08:03)
[2020-11-26] MEDS: DOCUSATE SODIUM 100 MG CAPSULE PO SCH ×2 (08:03→19:50)
[2020-11-26] MEDS: LORazepam 2 MG/ML VIAL IVP PRN ×3 (09:52→19:52)
[2020-11-26 10:52] VITALS: BP 129/88
[2020-11-26 15:19] VITALS: BP 129/80
[2020-11-26 19:30] VITALS: BP 132/89
[2020-11-26] MEDS: ETHYL ALCOHOL 62% ANTISEPTIC NASAL INHALANT 0.6 ML AMPUL NASAL SCH (19:50)
[2020-11-26 23:31] VITALS: BP 140/85
[2020-11-27] MEDS: LORazepam 2 MG/ML VIAL IVP PRN ×4 (00:10→12:25)
[2020-11-27] MEDS: HEPARIN SODIUM,PORCINE 5,000 UNITS/ML VIAL SQ SCH ×2 (00:11→08:12)
[2020-11-27 04:20] VITALS: BP 119/73
[2020-11-27 07:22] VITALS: BP 124/78
[2020-11-27] MEDS: MULTIVITAMINS WITH MINERALS, THERAPEUTIC TABLET PO SCH (08:12)
[2020-11-27] MEDS: FAMOTIDINE 20 MG TABLET PO SCH (08:12)
[2020-11-27] MEDS: PredniSONE 20 MG TABLET PO SCH (08:12)
[2020-11-27] MEDS: DOCUSATE SODIUM 100 MG CAPSULE PO SCH (08:12)
[2020-11-27] MEDS: ETHYL ALCOHOL 62% ANTISEPTIC NASAL INHALANT 0.6 ML AMPUL NASAL SCH (08:22)
[2020-11-27 11:05] VITALS: BP 113/81
[2020-11-27 15:13] VITALS: BP 133/84
== END 2020-11-27 16:39 | disposition left against medical advice (07) | DRG 140 ==
LOC: EMS 08:05 → 5S 16:21
PROVIDERS: ADMIT Internal Medicine; ATTEND Internal Medicine
DX: J44.1 Chronic obstructive pulmonary disease with (acute) exacerbation (principal); J96.01 Acute respiratory failure with hypoxia; J96.02 Acute respiratory failure with hypercapnia; E43 Unspecified severe protein-calorie malnutrition; I50.9 Heart failure, unspecified; I11.0 Hypertensive heart disease with heart failure; F17.210 Nicotine dependence, cigarettes, uncomplicated; Z53.29 Procedure and treatment not carried out because of patient's decision for other reasons; E87.6 Hypokalemia; F10.129 Alcohol abuse with intoxication, unspecified; F20.9 Schizophrenia, unspecified; Z20.822 Contact with and (suspected) exposure to COVID-19; Z91.19 Patient's noncompliance with other medical treatment and regimen; Z68.1 Body mass index [BMI] 19.9 or less, adult; Z88.8 Allergy status to other drugs, medicaments and biological substances; Z79.899 Other long term (current) drug therapy
CPT/HCPCS: 36600; 71045; 80053; 82805; 83735; 83880; 84132; 84484; 85025; 87081; 93005; 94644; 97161; 97165; 99291; G0480; J1644; J1940; J2060; J2930; 36415-L1; 36415-TC; J7611

== ENCOUNTER 2020-12-03 14:29 | Inpatient (IN) | payer OTHER ==
[~2020-12-03] VITALS: Ht 177.8 cm; Wt 47.1 kg
[2020-12-03] MEDS ORDERED: ALBUTEROL SULFATE 5 MG/ML 20 ML NEB SOLN [BULK] NEB ONE ×2 (15:00→19:15)
[2020-12-03] MEDS ORDERED: AZITHROMYCIN 500 MG TABLET PO ONE (15:00)
[2020-12-03] MEDS ORDERED: SODIUM CHLORIDE 0.9% 1,000 ML IV ONE ×2 (15:00→16:00)
[2020-12-03] MEDS ORDERED: PredniSONE 20 MG TABLET PO ONE (15:00)
[2020-12-03 15:13] LABS: BASOPHILS % (AUTO) 0.6 % (0.0-2.0); EOSINOPHILS % (AUTO) 0.7 % (1.0-6.0); HEMOGLOBIN 18.4 g/dL (13.5-17.5); LYMPHOCYTES # (AUTO) 1.3 K/uL (1.0-4.8); LYMPHOCYTES % (AUTO) 9.6 % (22.0-44.0); MEAN CORPUSCULAR HEMOGLOBIN 29.2 pg (26.0-34.0); MEAN CORPUSCULAR VOLUME 91 fL (80-100); MONOCYTES # (AUTO) 0.6 K/uL (0.1-1.0); MONOCYTES % (AUTO) 4.7 % (2.0-9.0); NEUTROPHILS # (AUTO) 11.5 K/uL (1.8-7.7); NEUTROPHILS % (AUTO) 84.4 % (40.0-70.0); PLATELET COUNT (AUTO) 445 K/uL (150-450); RED CELL DISTRIBUTION WIDTH 14.8 % (11.5-14.5)
[2020-12-03] MEDS ORDERED: LORazepam 1 MG TABLET PO ONE (15:30)
[2020-12-03 15:40] LABS: HEMATOCRIT 57.3 % (41-53)
[2020-12-03 15:48] LABS: COVID AG,FIA SOURCE NASOPHARYNGEAL
[2020-12-03] MEDS ORDERED: SODIUM POLYSTYRENE SULFONATE 15 GM/60 ML SUSPENSION BOTTLE PO ONE (16:15)
[2020-12-03 16:28] LABS: GLUCOSE,POINT OF CARE 61 MG/DL (70-110)
[2020-12-03 17:05] LABS: GLUCOSE,POINT OF CARE 130 MG/DL (70-110)
[2020-12-03 17:26] LABS: ANION GAP 12 mmol/L (8-16); CALCIUM, TOTAL 8.7 mg/dL (8.8-10.5); CARBON DIOXIDE 27 mmol/L (22-29); CHLORIDE 101 mmol/L (98-107); CREATININE 1.01 mg/dL (0.60-1.30); GLOMERULAR FILTR. RATE CALC > 60 mL/min (>60); GLUCOSE,RANDOM 112 mg/dL (70-110); POTASSIUM 5.5 mmol/L (3.5-5.1); SODIUM SERUM 140 mmol/L (136-145); UREA NITROGEN, BLOOD 19 mg/dL (7-18)
[2020-12-03 17:32] LABS: ALANINE AMINOTRANSFERASE 56 U/L (12-78); ALBUMIN 3.6 g/dL (3.4-5.0); ALKALINE PHOSPHATASE 158 U/L (46-116); ASPARTATE AMINOTRANSFERASE 36 U/L (15-37); BILIRUBIN,TOTAL 0.9 mg/dL (0.1-1.0); TOTAL PROTEIN, SERUM 6.9 g/dL (6.4-8.2)
[2020-12-03] MEDS ORDERED: KETOROLAC TROMETHAMINE 30 MG/ML VIAL IVP ONE (17:45)
[2020-12-03] MEDS ORDERED: INSULIN REGULAR, HUMAN 100 UNITS/ML IVP ONE (17:45)
[2020-12-03] MEDS: DEXTROSE 50%-WATER 25 GM/50 ML SYRINGE IVP ONE ×2 (18:06→19:10)
[2020-12-03 18:14] LABS: AMPHET/METH SCREEN,URINE NEGATIVE (NEGATIVE); BARBITURATE SCREEN, URINE NEGATIVE (NEGATIVE); BENZODIAZEPINES SCREEN,URINE POSITIVE (NEGATIVE); CANNABINOID SCREEN,URINE NEGATIVE (NEGATIVE); COCAINE SCREEN,URINE NEGATIVE (NEGATIVE); METHADONE SCREEN, URINE NEGATIVE (NEGATIVE); OPIATE SCREEN,URINE NEGATIVE (NEGATIVE)
[2020-12-03 18:18] LABS: GLUCOMETER DEV NAME(LOC) ERT.5; GLUCOSE,POINT OF CARE 247 MG/DL (70-110)
[2020-12-03 18:23] LABS: PHENCYCLIDINE SCREEN,URINE NEGATIVE (NEGATIVE)
[2020-12-03] MEDS ORDERED: IPRATROPIUM BROMIDE 0.5 MG/2.5 ML NEB SOLUTION NEB PRN (19:15)
[2020-12-03] MEDS ORDERED: ONDANSETRON HCL 4 MG/2 ML VIAL IVP PRN (19:15)
[2020-12-03 21:36] VITALS: BP 134/92
[2020-12-03] MEDS: SODIUM CHLORIDE 0.9% 1,000 ML IV SCH (21:40)
[2020-12-03] MEDS: LORazepam 2 MG TABLET PO PRN (21:44)
[2020-12-03 22:30] VITALS: BP 137/75
[2020-12-03] MEDS: MELATONIN 3 MG TABLET PO PRN (23:02)
[2020-12-03 23:30] VITALS: BP 127/92
[2020-12-04] VITALS (8 sets, daily range): BP systolic 99–129; BP diastolic 56–80
[2020-12-04] MEDS: HEPARIN SODIUM,PORCINE 5,000 UNITS/ML VIAL SQ SCH ×3 (01:21→17:12)
[2020-12-04] MEDS: LORazepam 2 MG TABLET PO PRN (01:21)
[2020-12-04] MEDS: SODIUM CHLORIDE 0.9% 1,000 ML IV SCH (03:47)
[2020-12-04] MEDS ORDERED: LORazepam 2 MG TABLET PO PRN (07:00)
[2020-12-04] MEDS ORDERED: LORazepam 1 MG TABLET PO SCH (09:00)
[2020-12-04] MEDS: MethylPREDNISolone SOD SUCC 125 MG/2 ML VIAL IVP SCH ×2 (09:00→14:19)
[2020-12-04] MEDS ORDERED: AZITHROMYCIN 500 MG TABLET PO SCH (09:00)
[2020-12-04] MEDS: THIAMINE 100 MG/ML 2 ML VIAL IVP SCH (09:00)
[2020-12-04 10:57] LABS: BASOPHILS % (AUTO) 0.1 % (0.0-2.0); EOSINOPHILS % (AUTO) 0 % (1.0-6.0); HEMATOCRIT 47.2 % (41-53); HEMOGLOBIN 15.2 g/dL (13.5-17.5); LYMPHOCYTES # (AUTO) 0.4 K/uL (1.0-4.8); LYMPHOCYTES % (AUTO) 3.9 % (22.0-44.0); MEAN CORPUSCULAR HEMOGLOBIN 29.4 pg (26.0-34.0); MEAN CORPUSCULAR HGB CONC 32.2 G/dL (31.0-37.0); MEAN CORPUSCULAR VOLUME 91 fL (80-100); MONOCYTES # (AUTO) 0.8 K/uL (0.1-1.0); NEUTROPHILS # (AUTO) 8.2 K/uL (1.8-7.7); PLATELET COUNT (AUTO) 304 K/uL (150-450); RED BLOOD CELL COUNT(AUTO) 5.17 MIL/uL (4.50-5.90); RED CELL DISTRIBUTION WIDTH 14.1 % (11.5-14.5)
[2020-12-04 11:13] LABS: ANION GAP 0 mmol/L (8-16); CALCIUM, TOTAL 8.6 mg/dL (8.8-10.5); CARBON DIOXIDE 37 mmol/L (22-29); CHLORIDE 103 mmol/L (98-107); CREATININE 0.83 mg/dL (0.60-1.30); GLOMERULAR FILTR. RATE CALC > 60 mL/min (>60); GLUCOSE,RANDOM 159 mg/dL (70-110); POTASSIUM 4.5 mmol/L (3.5-5.1); SODIUM SERUM 140 mmol/L (136-145); UREA NITROGEN, BLOOD 13 mg/dL (7-18)
[2020-12-04] MEDS: LORazepam 2 MG/ML VIAL IVP PRN ×2 (14:22→20:25)
[2020-12-04] MEDS: MELATONIN 3 MG TABLET PO PRN (21:20)
[2020-12-05] MEDS: HEPARIN SODIUM,PORCINE 5,000 UNITS/ML VIAL SQ SCH ×2 (00:52→09:12)
[2020-12-05] MEDS: LORazepam 2 MG/ML VIAL IVP PRN ×2 (01:57→09:15)
[2020-12-05 03:40] VITALS: BP 125/84
[2020-12-05 07:42] VITALS: BP 117/83
[2020-12-05] MEDS: THIAMINE 100 MG/ML 2 ML VIAL IVP SCH (09:13)
[2020-12-05] MEDS: MethylPREDNISolone SOD SUCC 125 MG/2 ML VIAL IVP SCH (09:13)
[2020-12-05 11:41] VITALS: BP 111/90
[2020-12-06] MEDS ORDERED: LORazepam 1 MG TABLET PO PRN (07:00)
[2020-12-06] MEDS ORDERED: LORazepam 1 MG TABLET PO SCH (09:00)
[2020-12-07] MEDS ORDERED: LORazepam 1 MG TABLET PO PRN (07:00)
== END 2020-12-05 14:10 | disposition home or self-care (01) | DRG 133 ==
LOC: EMS 14:31 → 5N 19:07
PROVIDERS: ADMIT Internal Medicine; ATTEND Internal Medicine
DX: J96.01 Acute respiratory failure with hypoxia (principal); G92 Toxic encephalopathy; E43 Unspecified severe protein-calorie malnutrition; E86.0 Dehydration; J44.1 Chronic obstructive pulmonary disease with (acute) exacerbation; F10.129 Alcohol abuse with intoxication, unspecified; E87.5 Hyperkalemia; F20.9 Schizophrenia, unspecified; I10 Essential (primary) hypertension; Z20.822 Contact with and (suspected) exposure to COVID-19; F10.130 Alcohol abuse with withdrawal, uncomplicated; Z87.891 Personal history of nicotine dependence; Z91.19 Patient's noncompliance with other medical treatment and regimen; Z88.8 Allergy status to other drugs, medicaments and biological substances; Z88.5 Allergy status to narcotic agent; Z79.899 Other long term (current) drug therapy; Z68.1 Body mass index [BMI] 19.9 or less, adult
CPT/HCPCS: 71045; 80048; 80053; 82962; 83735; 85025; 93005; 99291; G0480; J1644; J1815; J1885; J2060; J2405; J2930; J3411; J7030; Q9967; 36415-L1; 36415-TC; J7611; U0003

== ENCOUNTER 2020-12-11 09:22 | Inpatient (IN) | payer OTHER ==
[~2020-12-11] VITALS: Ht 167.6 cm; Wt 49.0 kg
[~2020-12-11 09:22] MED LIST changes: -METO25 PO
[2020-12-11] MEDS ORDERED: MethylPREDNISolone SOD SUCC 125 MG/2 ML VIAL IVP ONE (09:45)
[2020-12-11] MEDS: ALBUTEROL SULFATE 5 MG/ML 20 ML NEB SOLN [BULK] NEB ONE ×2 (09:47→09:49)
[2020-12-11] MEDS: IPRATROPIUM BROMIDE 0.5 MG/2.5 ML NEB SOLUTION NEB ONE ×2 (09:48→09:49)
[2020-12-11 09:59] LABS: BASOPHILS % (AUTO) 0.4 % (0.0-2.0); EOSINOPHILS % (AUTO) 5.2 % (1.0-6.0); HEMOGLOBIN 17.6 g/dL (13.5-17.5); LYMPHOCYTES % (AUTO) 20.2 % (22.0-44.0); MEAN CORPUSCULAR HEMOGLOBIN 29.9 pg (26.0-34.0); MEAN CORPUSCULAR HGB CONC 32.7 G/dL (31.0-37.0); MEAN CORPUSCULAR VOLUME 91 fL (80-100); MONOCYTES # (AUTO) 1.1 K/uL (0.1-1.0); MONOCYTES % (AUTO) 11.3 % (2.0-9.0); NEUTROPHILS # (AUTO) 6.3 K/uL (1.8-7.7); NEUTROPHILS % (AUTO) 62.9 % (40.0-70.0); PLATELET COUNT (AUTO) 303 K/uL (150-450); RED BLOOD CELL COUNT(AUTO) 5.91 MIL/uL (4.50-5.90); RED CELL DISTRIBUTION WIDTH 14.4 % (11.5-14.5)
[2020-12-11 10:08] LABS: ANION GAP 4 mmol/L (8-16); CALCIUM, TOTAL 8.5 mg/dL (8.8-10.5); CARBON DIOXIDE 36 mmol/L (22-29); CHLORIDE 99 mmol/L (98-107); CREATININE 0.95 mg/dL (0.60-1.30); GLOMERULAR FILTR. RATE CALC > 60 mL/min (>60); GLUCOSE,RANDOM 116 mg/dL (70-110); SODIUM SERUM 139 mmol/L (136-145); UREA NITROGEN, BLOOD 7 mg/dL (7-18)
[2020-12-11 10:13] LABS: ALANINE AMINOTRANSFERASE 135 U/L (12-78); ALKALINE PHOSPHATASE 213 U/L (46-116); ASPARTATE AMINOTRANSFERASE 134 U/L (15-37); TOTAL PROTEIN, SERUM 7.6 g/dL (6.4-8.2)
[2020-12-11 10:26] LABS: ALBUMIN 3.1 g/dL (3.4-5.0)
[2020-12-11] MEDS ORDERED: DIAZEPAM 5 MG/ML 2 ML SYRINGE IVP ONE (10:45)
[2020-12-11] MEDS ORDERED: ACETAMINOPHEN 325 MG TABLET PO PRN ×2 (11:00→13:15)
[2020-12-11] MEDS ORDERED: ONDANSETRON HCL 4 MG/2 ML VIAL IVP PRN (11:00)
[2020-12-11] MEDS ORDERED: ALBUTEROL SULFATE 2.5 MG/0.5 ML NEB SOLUTION NEB SCH (11:00)
[2020-12-11] MEDS ORDERED: IPRATROPIUM BROMIDE 0.5 MG/2.5 ML NEB SOLUTION NEB SCH (11:00)
[2020-12-11] MEDS ORDERED: DIAZEPAM 5 MG/ML 2 ML SYRINGE IVP PRN (11:00)
[2020-12-11 12:29] LABS: COVID AG,FIA SOURCE NASOPHARYNGEAL
[2020-12-11] MEDS ORDERED: BISACODYL 10 MG RECTAL RECTAL SUPPOSITORY PR PRN (13:15)
[2020-12-11] MEDS ORDERED: MAGNESIUM HYDROXIDE SUSPENSION 30 ML UDCUP PO PRN (13:15)
[2020-12-11] MEDS ORDERED: MAGNESIUM SULFATE 2 GM, MVI, ADULT NO.1 WITH VIT K 10 ML, THIAMINE 100 MG, FOLIC ACID 1... IV ONE ×5 (13:15)
[2020-12-11] MEDS ORDERED: SODIUM CHLORIDE 0.9% 250 ML IV ONE ×2 (13:47→14:00)
[2020-12-11 14:21] LABS: MAGNESIUM 2.2 mg/dL (1.80-2.40); PHOSPHORUS 2.4 mg/dL (2.5-4.9)
[2020-12-11] MEDS ORDERED: IPRATROPIUM BROMIDE 0.5 MG/2.5 ML NEB SOLUTION NEB PRN (14:45)
[2020-12-11] MEDS ORDERED: ALBUTEROL SULFATE 2.5 MG/0.5 ML NEB SOLUTION NEB PRN (14:45)
[2020-12-11] MEDS: ONDANSETRON HCL 4 MG/2 ML VIAL IVP PRN (15:45)
[2020-12-11 15:58] VITALS: BP 122/76
[2020-12-11] MEDS: HEPARIN SODIUM,PORCINE 5,000 UNITS/ML VIAL SQ SCH (16:09)
[2020-12-11] MEDS: BENZONATATE 100 MG CAPSULE PO SCH ×2 (16:17→20:36)
[2020-12-11] MEDS: MethylPREDNISolone SOD SUCC 125 MG/2 ML VIAL IVP SCH (17:11)
[2020-12-11 19:13] VITALS: BP 142/93
[2020-12-11] MEDS: GuaiFENesin SR 600 MG ER TABLET PO SCH (20:12)
[2020-12-11] MEDS: DOCUSATE SODIUM 100 MG CAPSULE PO SCH (20:12)
[2020-12-11] MEDS: LORazepam 2 MG/ML VIAL IVP PRN (20:13)
[2020-12-11] MEDS: HYDROmorphone 2 MG/ML VIAL IVP PRN (20:14)
[2020-12-11] MEDS: ALBUTEROL SULFATE 2.5 MG/0.5 ML NEB SOLUTION NEB SCH (20:17)
[2020-12-11] MEDS: IPRATROPIUM BROMIDE 0.5 MG/2.5 ML NEB SOLUTION NEB SCH (20:17)
[2020-12-11] MEDS: ZOLPIDEM TARTRATE 5 MG TABLET PO PRN (20:36)
[2020-12-11 23:11] VITALS: BP 155/96
[2020-12-12] MEDS: MethylPREDNISolone SOD SUCC 125 MG/2 ML VIAL IVP SCH ×5 (00:10→23:07)
[2020-12-12] MEDS: ONDANSETRON HCL 4 MG/2 ML VIAL IVP PRN (00:10)
[2020-12-12] MEDS: LORazepam 2 MG/ML VIAL IVP PRN ×5 (00:10→21:01)
[2020-12-12] MEDS: HEPARIN SODIUM,PORCINE 5,000 UNITS/ML VIAL SQ SCH ×4 (00:18→23:07)
[2020-12-12] MEDS: ALBUTEROL SULFATE 2.5 MG/0.5 ML NEB SOLUTION NEB SCH ×4 (02:00→20:02)
[2020-12-12] MEDS: IPRATROPIUM BROMIDE 0.5 MG/2.5 ML NEB SOLUTION NEB SCH ×4 (02:00→20:02)
[2020-12-12 04:11] VITALS: BP 149/91
[2020-12-12] MEDS: HYDROmorphone 2 MG/ML VIAL IVP PRN ×3 (04:19→23:16)
[2020-12-12 06:30] LABS: BASOPHILS % (AUTO) 0.1 % (0.0-2.0); EOSINOPHILS % (AUTO) 0 % (1.0-6.0); HEMATOCRIT 43.5 % (41-53); HEMOGLOBIN 14.2 g/dL (13.5-17.5); LYMPHOCYTES # (AUTO) 0.1 K/uL (1.0-4.8); LYMPHOCYTES % (AUTO) 1.3 % (22.0-44.0); MEAN CORPUSCULAR HEMOGLOBIN 29.6 pg (26.0-34.0); MEAN CORPUSCULAR HGB CONC 32.6 G/dL (31.0-37.0); MEAN CORPUSCULAR VOLUME 91 fL (80-100); MONOCYTES # (AUTO) 0.4 K/uL (0.1-1.0); MONOCYTES % (AUTO) 3.8 % (2.0-9.0); PLATELET COUNT (AUTO) 287 K/uL (150-450); RED BLOOD CELL COUNT(AUTO) 4.78 MIL/uL (4.50-5.90); RED CELL DISTRIBUTION WIDTH 14.4 % (11.5-14.5)
[2020-12-12 06:45] LABS: ANION GAP 2 mmol/L (8-16); CALCIUM, TOTAL 8.6 mg/dL (8.8-10.5); CARBON DIOXIDE 38 mmol/L (22-29); CHLORIDE 100 mmol/L (98-107); CREATININE 0.84 mg/dL (0.60-1.30); GLOMERULAR FILTR. RATE CALC > 60 mL/min (>60); GLUCOSE,RANDOM 194 mg/dL (70-110); SODIUM SERUM 140 mmol/L (136-145); UREA NITROGEN, BLOOD 11 mg/dL (7-18)
[2020-12-12 06:51] LABS: NEUTROPHILS % (AUTO) 94.8 % (40.0-70.0)
[2020-12-12 07:57] VITALS: BP 138/89
[2020-12-12] MEDS: FLUTICASONE/VILANTEROL 200-25 MCG/INH INHALER [14] IH SCH (08:17)
[2020-12-12] MEDS: GuaiFENesin SR 600 MG ER TABLET PO SCH ×2 (08:19→20:12)
[2020-12-12] MEDS: BENZONATATE 100 MG CAPSULE PO SCH ×3 (08:19→20:11)
[2020-12-12] MEDS: DOCUSATE SODIUM 100 MG CAPSULE PO SCH ×2 (08:19→20:12)
[2020-12-12] MEDS: PANTOPRAZOLE SODIUM 40 MG DR TABLET PO SCH (08:19)
[2020-12-12 10:54] VITALS: BP 122/78
[2020-12-12 15:35] VITALS: BP 132/65
[2020-12-12 20:04] VITALS: BP 129/83
[2020-12-12] MEDS: THIAMINE 100 MG TABLET PO SCH (20:11)
[2020-12-12] MEDS: ZOLPIDEM TARTRATE 5 MG TABLET PO PRN (20:12)
[2020-12-12 23:46] VITALS: BP 133/77
[2020-12-13] MEDS: IPRATROPIUM BROMIDE 0.5 MG/2.5 ML NEB SOLUTION NEB SCH ×4 (02:46→20:30)
[2020-12-13] MEDS: ALBUTEROL SULFATE 2.5 MG/0.5 ML NEB SOLUTION NEB SCH ×4 (02:46→20:30)
[2020-12-13] MEDS: LORazepam 2 MG/ML VIAL IVP PRN ×2 (03:03→08:41)
[2020-12-13 04:38] VITALS: BP 123/68
[2020-12-13] MEDS: MethylPREDNISolone SOD SUCC 125 MG/2 ML VIAL IVP SCH ×4 (05:42→23:53)
[2020-12-13 06:49] LABS: EOSINOPHILS % (AUTO) 0 % (1.0-6.0); HEMATOCRIT 39.9 % (41-53); HEMOGLOBIN 12.7 g/dL (13.5-17.5); LYMPHOCYTES # (AUTO) 0.1 K/uL (1.0-4.8); LYMPHOCYTES % (AUTO) 0.9 % (22.0-44.0); MEAN CORPUSCULAR HEMOGLOBIN 29.7 pg (26.0-34.0); MEAN CORPUSCULAR HGB CONC 31.9 G/dL (31.0-37.0); MEAN CORPUSCULAR VOLUME 93 fL (80-100); MONOCYTES # (AUTO) 0.5 K/uL (0.1-1.0); MONOCYTES % (AUTO) 3.1 % (2.0-9.0); NEUTROPHILS # (AUTO) 15.6 K/uL (1.8-7.7); PLATELET COUNT (AUTO) 256 K/uL (150-450); RED BLOOD CELL COUNT(AUTO) 4.29 MIL/uL (4.50-5.90); RED CELL DISTRIBUTION WIDTH 14.6 % (11.5-14.5)
[2020-12-13 07:01] LABS: ANION GAP 1 mmol/L (8-16); CALCIUM, TOTAL 8.2 mg/dL (8.8-10.5); CARBON DIOXIDE 35 mmol/L (22-29); CHLORIDE 104 mmol/L (98-107); CREATININE 0.86 mg/dL (0.60-1.30); GLOMERULAR FILTR. RATE CALC > 60 mL/min (>60); GLUCOSE,RANDOM 179 mg/dL (70-110); POTASSIUM 4.4 mmol/L (3.5-5.1); SODIUM SERUM 140 mmol/L (136-145); UREA NITROGEN, BLOOD 18 mg/dL (7-18)
[2020-12-13 07:50] VITALS: BP 127/80
[2020-12-13] MEDS: HEPARIN SODIUM,PORCINE 5,000 UNITS/ML VIAL SQ SCH ×3 (08:40→23:53)
[2020-12-13] MEDS: DOCUSATE SODIUM 100 MG CAPSULE PO SCH ×2 (08:40→20:23)
[2020-12-13] MEDS: GuaiFENesin SR 600 MG ER TABLET PO SCH ×2 (08:40→20:23)
[2020-12-13] MEDS: FLUTICASONE/VILANTEROL 200-25 MCG/INH INHALER [14] IH SCH (08:40)
[2020-12-13] MEDS: PANTOPRAZOLE SODIUM 40 MG DR TABLET PO SCH (08:40)
[2020-12-13] MEDS: BENZONATATE 100 MG CAPSULE PO SCH ×3 (08:41→20:23)
[2020-12-13] MEDS: THIAMINE 100 MG TABLET PO SCH (08:41)
[2020-12-13 10:44] VITALS: BP 140/94
[2020-12-13 12:00] VITALS: BP 146/90
[2020-12-13] MEDS: LORazepam 2 MG/ML VIAL IM PRN ×3 (16:11→23:51)
[2020-12-13 19:53] VITALS: BP 143/84
[2020-12-13] MEDS: ZOLPIDEM TARTRATE 5 MG TABLET PO PRN (20:23)
[2020-12-13] MEDS: HYDROmorphone 2 MG/ML VIAL IM PRN (23:50)
[2020-12-13 23:59] VITALS: BP 129/80
[2020-12-14] MEDS: IPRATROPIUM BROMIDE 0.5 MG/2.5 ML NEB SOLUTION NEB SCH ×3 (02:27→14:00)
[2020-12-14] MEDS: ALBUTEROL SULFATE 2.5 MG/0.5 ML NEB SOLUTION NEB SCH ×3 (02:27→14:00)
[2020-12-14 04:08] VITALS: BP 129/77
[2020-12-14] MEDS: LORazepam 2 MG/ML VIAL IM PRN ×2 (04:34→08:22)
[2020-12-14] MEDS: MethylPREDNISolone SOD SUCC 125 MG/2 ML VIAL IVP SCH ×2 (06:00→12:00)
[2020-12-14 06:59] LABS: BASOPHILS % (AUTO) 0.3 % (0.0-2.0); EOSINOPHILS % (AUTO) 0 % (1.0-6.0); HEMATOCRIT 40.4 % (41-53); HEMOGLOBIN 12.8 g/dL (13.5-17.5); LYMPHOCYTES # (AUTO) 0.9 K/uL (1.0-4.8); LYMPHOCYTES % (AUTO) 7.8 % (22.0-44.0); MEAN CORPUSCULAR HEMOGLOBIN 29.6 pg (26.0-34.0); MEAN CORPUSCULAR HGB CONC 31.8 G/dL (31.0-37.0); MEAN CORPUSCULAR VOLUME 93 fL (80-100); MONOCYTES # (AUTO) 0.5 K/uL (0.1-1.0); MONOCYTES % (AUTO) 4.6 % (2.0-9.0); NEUTROPHILS # (AUTO) 10.1 K/uL (1.8-7.7); PLATELET COUNT (AUTO) 252 K/uL (150-450); RED BLOOD CELL COUNT(AUTO) 4.34 MIL/uL (4.50-5.90); RED CELL DISTRIBUTION WIDTH 14.8 % (11.5-14.5)
[2020-12-14 07:08] LABS: ANION GAP 3 mmol/L (8-16); CALCIUM, TOTAL 7.9 mg/dL (8.8-10.5); CARBON DIOXIDE 38 mmol/L (22-29); CHLORIDE 102 mmol/L (98-107); CREATININE 0.84 mg/dL (0.60-1.30); GLOMERULAR FILTR. RATE CALC > 60 mL/min (>60); GLUCOSE,RANDOM 124 mg/dL (70-110); POTASSIUM 3.8 mmol/L (3.5-5.1); SODIUM SERUM 143 mmol/L (136-145); UREA NITROGEN, BLOOD 15 mg/dL (7-18)
[2020-12-14 07:14] LABS: NEUTROPHILS % (AUTO) 87.3 % (40.0-70.0)
[2020-12-14] MEDS: DOCUSATE SODIUM 100 MG CAPSULE PO SCH (08:20)
[2020-12-14] MEDS: GuaiFENesin SR 600 MG ER TABLET PO SCH (08:20)
[2020-12-14] MEDS: HEPARIN SODIUM,PORCINE 5,000 UNITS/ML VIAL SQ SCH (08:21)
[2020-12-14] MEDS: THIAMINE 100 MG TABLET PO SCH (08:21)
[2020-12-14] MEDS: PANTOPRAZOLE SODIUM 40 MG DR TABLET PO SCH (08:21)
[2020-12-14] MEDS: BENZONATATE 100 MG CAPSULE PO SCH (08:22)
[2020-12-14 08:42] VITALS: BP 138/93
[2020-12-14] MEDS: HYDROmorphone 2 MG/ML VIAL IM PRN (09:56)
[2020-12-14] MEDS ORDERED: ALBU8HFA IH (11:56)
[2020-12-14] MEDS ORDERED: BENZ-70 PO (11:56)
[2020-12-14] MEDS ORDERED: PRED-409 PO (11:58)
[2020-12-14] MEDS ORDERED: PRED10 PO (11:59)
[2020-12-14] MEDS ORDERED: PRED20 PO (11:59)
== END 2020-12-14 14:35 | disposition home or self-care (01) | DRG 52 ==
LOC: EMS 09:26 → 5S 14:01
PROVIDERS: ADMIT Internal Medicine; ATTEND Internal Medicine
DX: G92 Toxic encephalopathy (principal); J96.01 Acute respiratory failure with hypoxia; E43 Unspecified severe protein-calorie malnutrition; R65.10 Systemic inflammatory response syndrome (SIRS) of non-infectious origin without acute organ dysfunction; J44.1 Chronic obstructive pulmonary disease with (acute) exacerbation; K21.9 Gastro-esophageal reflux disease without esophagitis; Y90.8 Blood alcohol level of 240 mg/100 ml or more; Z20.822 Contact with and (suspected) exposure to COVID-19; F10.139 Alcohol abuse with withdrawal, unspecified; F19.10 Other psychoactive substance abuse, uncomplicated; Z68.1 Body mass index [BMI] 19.9 or less, adult; Z79.899 Other long term (current) drug therapy; Z87.891 Personal history of nicotine dependence; Z91.19 Patient's noncompliance with other medical treatment and regimen; Z88.8 Allergy status to other drugs, medicaments and biological substances; Z88.5 Allergy status to narcotic agent
CPT/HCPCS: 71045; 80048; 80053; 83690; 83735; 84100; 85025; 93005; 94640; 94644; 99291; G0378; G0480; J1170; J1644; J2060; J2405; J2930; J3411; J3475; J3490; J7030; J7050; Q9967; 36415-L1; 36415-TC; J7611; J7613

== ENCOUNTER 2021-01-23 16:37 | Inpatient (IN) | payer OTHER ==
[~2021-01-23] VITALS: Ht 177.8 cm; Wt 47.7 kg
[~2021-01-23 16:37] MED LIST changes: +ALBU8HFA IH; -FAMO20 PO; -MULT-1336 PO
[2021-01-23] MEDS ORDERED: MORPHINE SULFATE 2 MG/ML SYRINGE IVP ONE ×2 (17:00→20:30)
[2021-01-23] MEDS ORDERED: ONDANSETRON HCL 4 MG/2 ML VIAL IVP ONE (17:00)
[2021-01-23] MEDS ORDERED: SODIUM CHLORIDE 0.9% 1,000 ML IV ONE (17:00)
[2021-01-23] MEDS ORDERED: MethylPREDNISolone SOD SUCC 125 MG/2 ML VIAL IVP ONE (17:30)
[2021-01-23 17:35] LABS: BASOPHILS % (AUTO) 0.6 % (0.0-2.0); EOSINOPHILS % (AUTO) 6.6 % (1.0-6.0); HEMATOCRIT 43.1 % (41-53); LYMPHOCYTES # (AUTO) 2.2 K/uL (1.0-4.8); LYMPHOCYTES % (AUTO) 28.4 % (22.0-44.0); MEAN CORPUSCULAR HEMOGLOBIN 29.7 pg (26.0-34.0); MEAN CORPUSCULAR HGB CONC 32.5 G/dL (31.0-37.0); MEAN CORPUSCULAR VOLUME 92 fL (80-100); MONOCYTES % (AUTO) 12.7 % (2.0-9.0); NEUTROPHILS # (AUTO) 3.9 K/uL (1.8-7.7); NEUTROPHILS % (AUTO) 51.7 % (40.0-70.0); PLATELET COUNT (AUTO) 327 K/uL (150-450); RED BLOOD CELL COUNT(AUTO) 4.71 MIL/uL (4.50-5.90); RED CELL DISTRIBUTION WIDTH 15.6 % (11.5-14.5)
[2021-01-23 17:53] LABS: ANION GAP 6 mmol/L (8-16); CALCIUM, TOTAL 8.1 mg/dL (8.8-10.5); CARBON DIOXIDE 33 mmol/L (22-29); CHLORIDE 105 mmol/L (98-107); CREATININE 0.97 mg/dL (0.60-1.30); GLOMERULAR FILTR. RATE CALC > 60 mL/min (>60); GLUCOSE,RANDOM 127 mg/dL (70-110); POTASSIUM 3.5 mmol/L (3.5-5.1); SODIUM SERUM 144 mmol/L (136-145); UREA NITROGEN, BLOOD 13 mg/dL (7-18)
[2021-01-23 18:01] LABS: ALANINE AMINOTRANSFERASE 30 U/L (12-78); ALKALINE PHOSPHATASE 140 U/L (46-116); ASPARTATE AMINOTRANSFERASE 32 U/L (15-37); BILIRUBIN,TOTAL 0.3 mg/dL (0.1-1.0); LIPASE 153 U/L (73-393); TOTAL PROTEIN, SERUM 6.3 g/dL (6.4-8.2)
[2021-01-23 18:07] LABS: B-TYPE NATRIURETIC PEPTIDE 62 pg/mL (0-100)
[2021-01-23] MEDS ORDERED: ONDANSETRON HCL 4 MG/2 ML VIAL IVP PRN (20:15)
[2021-01-23] MEDS ORDERED: ACETAMINOPHEN 325 MG TABLET PO PRN ×2 (20:15→22:00)
[2021-01-23] MEDS ORDERED: 0.9% SODIUM CHLORIDE 10 ML SYRINGE IVP PRN (20:15)
[2021-01-23] MEDS ORDERED: OLAN5TAB52 PO (21:30)
[2021-01-23 21:41] LABS: COVID AG,FIA SOURCE NASOPHARYNGEAL
[2021-01-23] MEDS ORDERED: OLANZapine 5 MG TABLET PO ONE (22:00)
[2021-01-23] MEDS ORDERED: LORazepam 2 MG/ML VIAL IVP ONE (22:00)
[2021-01-23] MEDS ORDERED: ALBUTEROL SULFATE 2.5 MG/0.5 ML NEB SOLUTION NEB PRN (22:00)
[2021-01-23] MEDS ORDERED: OxyCODONE HCL/ACETAMINOPHEN 5-325 MG TABLET PO PRN (22:00)
[2021-01-23] MEDS ORDERED: IPRATROPIUM BROMIDE 0.5 MG/2.5 ML NEB SOLUTION NEB PRN (22:00)
[2021-01-23] MEDS ORDERED: MAGNESIUM HYDROXIDE SUSPENSION 30 ML UDCUP PO PRN (22:00)
[2021-01-23] MEDS ORDERED: BISACODYL 10 MG RECTAL RECTAL SUPPOSITORY PR PRN (22:00)
[2021-01-23] MEDS: IPRATROPIUM BROMIDE 0.5 MG/2.5 ML NEB SOLUTION NEB SCH (22:26)
[2021-01-23] MEDS: ALBUTEROL SULFATE 2.5 MG/0.5 ML NEB SOLUTION NEB SCH (22:27)
[2021-01-23] MEDS: MethylPREDNISolone SOD SUCC 125 MG/2 ML VIAL IVP SCH (23:33)
[2021-01-23] MEDS: HEPARIN SODIUM,PORCINE 5,000 UNITS/ML VIAL SQ SCH (23:34)
[2021-01-24] MEDS: MORPHINE SULFATE 2 MG/ML SYRINGE IVP PRN ×3 (01:25→11:30)
[2021-01-24] MEDS: ONDANSETRON HCL 4 MG/2 ML VIAL IVP PRN ×3 (01:25→13:40)
[2021-01-24 02:23] LABS: BASOPHILS % (AUTO) 0.1 % (0.0-2.0); EOSINOPHILS % (AUTO) 0 % (1.0-6.0); HEMOGLOBIN 14.2 g/dL (13.5-17.5); LYMPHOCYTES # (AUTO) 0.3 K/uL (1.0-4.8); LYMPHOCYTES % (AUTO) 5.5 % (22.0-44.0); MEAN CORPUSCULAR HEMOGLOBIN 29.4 pg (26.0-34.0); MEAN CORPUSCULAR HGB CONC 32.3 G/dL (31.0-37.0); MEAN CORPUSCULAR VOLUME 91 fL (80-100); MONOCYTES % (AUTO) 0.8 % (2.0-9.0); NEUTROPHILS # (AUTO) 4.6 K/uL (1.8-7.7); NEUTROPHILS % (AUTO) 93.6 % (40.0-70.0); PLATELET COUNT (AUTO) 367 K/uL (150-450); RED BLOOD CELL COUNT(AUTO) 4.84 MIL/uL (4.50-5.90); RED CELL DISTRIBUTION WIDTH 15.7 % (11.5-14.5)
[2021-01-24 02:30] LABS: CHLORIDE 105 mmol/L (98-107)
[2021-01-24 02:45] LABS: ALANINE AMINOTRANSFERASE 31 U/L (12-78); ALBUMIN 3.2 g/dL (3.4-5.0); ALKALINE PHOSPHATASE 143 U/L (46-116); ANION GAP 9 mmol/L (8-16); ASPARTATE AMINOTRANSFERASE 28 U/L (15-37); BILIRUBIN,TOTAL 0.4 mg/dL (0.1-1.0); CALCIUM, TOTAL 8.4 mg/dL (8.8-10.5); CARBON DIOXIDE 30 mmol/L (22-29); CREATININE 0.93 mg/dL (0.60-1.30); GLOMERULAR FILTR. RATE CALC > 60 mL/min (>60); GLUCOSE,RANDOM 182 mg/dL (70-110); SODIUM SERUM 144 mmol/L (136-145); TOTAL PROTEIN, SERUM 6.8 g/dL (6.4-8.2); UREA NITROGEN, BLOOD 10 mg/dL (7-18)
[2021-01-24] MEDS: ZOLPIDEM TARTRATE 5 MG TABLET PO PRN ×2 (03:11→20:42)
[2021-01-24] MEDS: ALBUTEROL SULFATE 2.5 MG/0.5 ML NEB SOLUTION NEB SCH ×6 (03:15→23:00)
[2021-01-24] MEDS: IPRATROPIUM BROMIDE 0.5 MG/2.5 ML NEB SOLUTION NEB SCH ×6 (03:15→23:00)
[2021-01-24] MEDS: MethylPREDNISolone SOD SUCC 125 MG/2 ML VIAL IVP SCH ×4 (05:59→23:30)
[2021-01-24] MEDS: HEPARIN SODIUM,PORCINE 5,000 UNITS/ML VIAL SQ SCH ×3 (07:36→23:29)
[2021-01-24] MEDS: PANTOPRAZOLE SODIUM 40 MG DR TABLET PO SCH (08:08)
[2021-01-24] MEDS: DOCUSATE SODIUM 100 MG CAPSULE PO SCH ×2 (08:08→20:42)
[2021-01-24] MEDS: OLANZapine 5 MG TABLET PO SCH ×2 (08:08→21:12)
[2021-01-24] MEDS ORDERED: [UNRECOGNIZED DRUG - OTHER] IH SCH (09:00)
[2021-01-24] MEDS ORDERED: KETOROLAC TROMETHAMINE 30 MG/ML VIAL IVP PRN (12:30)
[2021-01-24 17:39] VITALS: BP 138/89
[2021-01-24 19:22] VITALS: BP 116/78
[2021-01-24 23:13] VITALS: BP 135/99
[2021-01-25] MEDS: ALBUTEROL SULFATE 2.5 MG/0.5 ML NEB SOLUTION NEB SCH ×6 (03:00→23:00)
[2021-01-25] MEDS: IPRATROPIUM BROMIDE 0.5 MG/2.5 ML NEB SOLUTION NEB SCH ×6 (03:00→23:00)
[2021-01-25 03:50] VITALS: BP 140/89
[2021-01-25] MEDS: KETOROLAC TROMETHAMINE 15 MG/ML VIAL IVP PRN ×4 (05:20→23:38)
[2021-01-25] MEDS: MethylPREDNISolone SOD SUCC 125 MG/2 ML VIAL IVP SCH ×4 (05:20→23:38)
[2021-01-25] MEDS: OLANZapine 5 MG TABLET PO SCH ×2 (08:13→20:06)
[2021-01-25] MEDS: HEPARIN SODIUM,PORCINE 5,000 UNITS/ML VIAL SQ SCH ×3 (08:13→23:38)
[2021-01-25] MEDS: DOCUSATE SODIUM 100 MG CAPSULE PO SCH ×2 (08:13→20:06)
[2021-01-25] MEDS: PANTOPRAZOLE SODIUM 40 MG DR TABLET PO SCH (08:13)
[2021-01-25 08:19] VITALS: BP 118/83
[2021-01-25 12:39] VITALS: BP 124/86
[2021-01-25] MEDS: BusPIRone HCL 5 MG TABLET PO SCH ×2 (14:00→20:06)
[2021-01-25 16:38] VITALS: BP 112/55
[2021-01-25] MEDS: ZOLPIDEM TARTRATE 5 MG TABLET PO PRN (20:11)
[2021-01-25 20:34] VITALS: BP 122/84
[2021-01-26 00:09] VITALS: BP 128/85
[2021-01-26] MEDS: ALBUTEROL SULFATE 2.5 MG/0.5 ML NEB SOLUTION NEB SCH ×6 (03:00→23:43)
[2021-01-26] MEDS: IPRATROPIUM BROMIDE 0.5 MG/2.5 ML NEB SOLUTION NEB SCH ×6 (03:00→23:43)
[2021-01-26 04:25] VITALS: BP 137/75
[2021-01-26] MEDS: MethylPREDNISolone SOD SUCC 125 MG/2 ML VIAL IVP SCH ×4 (05:07→23:52)
[2021-01-26 08:02] VITALS: BP 122/80
[2021-01-26] MEDS: DOCUSATE SODIUM 100 MG CAPSULE PO SCH ×2 (08:26→22:07)
[2021-01-26] MEDS: PANTOPRAZOLE SODIUM 40 MG DR TABLET PO SCH (08:26)
[2021-01-26] MEDS: OLANZapine 5 MG TABLET PO SCH ×2 (08:26→22:08)
[2021-01-26] MEDS: BusPIRone HCL 5 MG TABLET PO SCH ×3 (08:26→22:08)
[2021-01-26] MEDS: HEPARIN SODIUM,PORCINE 5,000 UNITS/ML VIAL SQ SCH ×3 (08:26→23:51)
[2021-01-26 11:21] VITALS: BP 148/96
[2021-01-26 16:20] VITALS: BP 136/90
[2021-01-26 20:35] VITALS: BP 147/106
[2021-01-26] MEDS: ZOLPIDEM TARTRATE 5 MG TABLET PO PRN (22:09)
[2021-01-27 00:45] VITALS: BP_SYST 1; BP_SYST 151; BP_DIAS 102
[2021-01-27] MEDS: ALBUTEROL SULFATE 2.5 MG/0.5 ML NEB SOLUTION NEB SCH ×4 (03:00→15:31)
[2021-01-27] MEDS: IPRATROPIUM BROMIDE 0.5 MG/2.5 ML NEB SOLUTION NEB SCH ×4 (03:00→15:32)
[2021-01-27 04:02] VITALS: BP 149/113
[2021-01-27] MEDS: MethylPREDNISolone SOD SUCC 125 MG/2 ML VIAL IVP SCH ×2 (05:41→11:40)
[2021-01-27 07:24] VITALS: BP 158/90
[2021-01-27 08:09] LABS: BASOPHILS % (AUTO) 0.2 % (0.0-2.0); EOSINOPHILS % (AUTO) 0.1 % (1.0-6.0); HEMATOCRIT 46.6 % (41-53); HEMOGLOBIN 14.7 g/dL (13.5-17.5); LYMPHOCYTES # (AUTO) 0.2 K/uL (1.0-4.8); LYMPHOCYTES % (AUTO) 1.1 % (22.0-44.0); MEAN CORPUSCULAR HEMOGLOBIN 29.1 pg (26.0-34.0); MEAN CORPUSCULAR HGB CONC 31.6 G/dL (31.0-37.0); MEAN CORPUSCULAR VOLUME 92 fL (80-100); MONOCYTES # (AUTO) 0.3 K/uL (0.1-1.0); MONOCYTES % (AUTO) 1.5 % (2.0-9.0); NEUTROPHILS # (AUTO) 15.8 K/uL (1.8-7.7); PLATELET COUNT (AUTO) 197 K/uL (150-450); RED BLOOD CELL COUNT(AUTO) 5.07 MIL/uL (4.50-5.90); RED CELL DISTRIBUTION WIDTH 15.3 % (11.5-14.5)
[2021-01-27 08:10] LABS: NEUTROPHILS % (AUTO) 97.1 % (40.0-70.0)
[2021-01-27] MEDS: DOCUSATE SODIUM 100 MG CAPSULE PO SCH (08:24)
[2021-01-27] MEDS: OLANZapine 5 MG TABLET PO SCH (08:24)
[2021-01-27] MEDS: PANTOPRAZOLE SODIUM 40 MG DR TABLET PO SCH (08:24)
[2021-01-27] MEDS: BusPIRone HCL 5 MG TABLET PO SCH ×2 (08:24→15:59)
[2021-01-27] MEDS: HEPARIN SODIUM,PORCINE 5,000 UNITS/ML VIAL SQ SCH ×2 (08:25→16:01)
[2021-01-27 08:32] LABS: ALANINE AMINOTRANSFERASE 27 U/L (12-78); ALBUMIN 3.2 g/dL (3.4-5.0); ALKALINE PHOSPHATASE 119 U/L (46-116); ANION GAP 5 mmol/L (8-16); ASPARTATE AMINOTRANSFERASE 19 U/L (15-37); BILIRUBIN,TOTAL 0.6 mg/dL (0.1-1.0); CARBON DIOXIDE 37 mmol/L (22-29); CHLORIDE 102 mmol/L (98-107); CREATININE 0.72 mg/dL (0.60-1.30); GLOMERULAR FILTR. RATE CALC > 60 mL/min (>60); GLUCOSE,RANDOM 124 mg/dL (70-110); POTASSIUM 5.1 mmol/L (3.5-5.1); SODIUM SERUM 144 mmol/L (136-145); TOTAL PROTEIN, SERUM 6.9 g/dL (6.4-8.2); UREA NITROGEN, BLOOD 15 mg/dL (7-18)
[2021-01-27 10:47] VITALS: BP 142/88
[2021-01-27 15:52] VITALS: BP_SYST 158; BP_DIAS 11; BP_DIAS 111
== END 2021-01-27 16:35 | disposition home or self-care (01) | DRG 140 ==
LOC: EMS 16:44 → 5S 01-24 16:13
PROVIDERS: ADMIT Hospitalist; ATTEND Hospitalist
DX: J44.1 Chronic obstructive pulmonary disease with (acute) exacerbation (principal); E44.0 Moderate protein-calorie malnutrition; I10 Essential (primary) hypertension; Y90.8 Blood alcohol level of 240 mg/100 ml or more; R09.1 Pleurisy; F20.9 Schizophrenia, unspecified; G89.4 Chronic pain syndrome; Z20.822 Contact with and (suspected) exposure to COVID-19; F41.9 Anxiety disorder, unspecified; F19.10 Other psychoactive substance abuse, uncomplicated; F99 Mental disorder, not otherwise specified; Z72.0 Tobacco use; Z91.19 Patient's noncompliance with other medical treatment and regimen; Z88.8 Allergy status to other drugs, medicaments and biological substances; Z88.6 Allergy status to analgesic agent; Z87.01 Personal history of pneumonia (recurrent); Z71.6 Tobacco abuse counseling; Z68.1 Body mass index [BMI] 19.9 or less, adult
CPT/HCPCS: 71045; 80053; 83690; 83880; 84484; 85025; 93005; 94640; 99291; G0378; G0480; J1644; J1885; J2060; J2270; J2405; J2930; 36415-L1; 36415-TC; J7613

== ENCOUNTER 2021-03-27 15:18 | Inpatient (IN) | payer OTHER ==
[~2021-03-27] VITALS: Ht 172.7 cm; Wt 45.9 kg
[~2021-03-27 15:18] MED LIST changes: +OLAN5TAB52 PO
[2021-03-27 16:03] LABS: MONOCYTES # (AUTO) 0.4 K/uL (0.1-1.0)
[2021-03-27 16:06] LABS: BASOPHILS % (AUTO) 1.2 % (0.0-2.0); EOSINOPHILS % (AUTO) 1.5 % (1.0-6.0); HEMOGLOBIN 16.9 g/dL (13.5-17.5); LYMPHOCYTES # (AUTO) 2.8 K/uL (1.0-4.8); LYMPHOCYTES % (AUTO) 67.6 % (22.0-44.0); MEAN CORPUSCULAR HEMOGLOBIN 30.6 pg (26.0-34.0); MEAN CORPUSCULAR HGB CONC 33.7 G/dL (31.0-37.0); MEAN CORPUSCULAR VOLUME 91 fL (80-100); MONOCYTES % (AUTO) 8.9 % (2.0-9.0); NEUTROPHILS # (AUTO) 0.9 K/uL (1.8-7.7); NEUTROPHILS % (AUTO) 20.8 % (40.0-70.0); RED BLOOD CELL COUNT(AUTO) 5.51 MIL/uL (4.50-5.90); RED CELL DISTRIBUTION WIDTH 14.5 % (11.5-14.5)
[2021-03-27] MEDS ORDERED: MethylPREDNISolone SOD SUCC 125 MG/2 ML VIAL IVP ONE (16:15)
[2021-03-27] MEDS ORDERED: LORazepam 2 MG TABLET PO ONE (16:15)
[2021-03-27] MEDS ORDERED: ALBUTEROL SULFATE 5 MG/ML 20 ML NEB SOLN [BULK] NEB ONE (16:15)
[2021-03-27] MEDS ORDERED: SODIUM CHLORIDE 0.9% 1,000 ML IV ONE (16:15)
[2021-03-27 16:17] LABS: ANION GAP 7 mmol/L (8-16); CALCIUM, TOTAL 8.4 mg/dL (8.8-10.5); CARBON DIOXIDE 33 mmol/L (22-29); CHLORIDE 100 mmol/L (98-107); CREATININE 0.71 mg/dL (0.60-1.30); GLOMERULAR FILTR. RATE CALC > 60 mL/min (>60); GLUCOSE,RANDOM 102 mg/dL (70-110); POTASSIUM 4.1 mmol/L (3.5-5.1); SODIUM SERUM 140 mmol/L (136-145); UREA NITROGEN, BLOOD 9 mg/dL (7-18)
[2021-03-27 16:22] LABS: ALANINE AMINOTRANSFERASE 130 U/L (12-78); ALBUMIN 3.2 g/dL (3.4-5.0); ALKALINE PHOSPHATASE 157 U/L (46-116); ASPARTATE AMINOTRANSFERASE 176 U/L (15-37); BILIRUBIN,TOTAL 0.5 mg/dL (0.1-1.0); LIPASE 157 U/L (73-393); TOTAL PROTEIN, SERUM 6.7 g/dL (6.4-8.2)
[2021-03-27 16:23] LABS: COVID AG,FIA SOURCE NASOPHARYNGEAL
[2021-03-27 16:34] LABS: PLATELET COUNT (AUTO) 130 K/uL (150-450)
[2021-03-27] MEDS ORDERED: 0.9% SODIUM CHLORIDE 15 ML NEB SOLUTION NEB ONE (17:02)
[2021-03-27 18:18] LABS: C-REACTIVE PROTEIN QUANT 2.12 mg/dL (0.00-0.30); FERRITIN 173 ng/mL (26-388); LACTATE DEHYDROGENASE 373 U/L (85-227)
[2021-03-27 21:00] VITALS: BP 119/70
[2021-03-27] MEDS ORDERED: MAGNESIUM HYDROXIDE SUSPENSION 30 ML UDCUP PO PRN (21:45)
[2021-03-27] MEDS ORDERED: ACETAMINOPHEN 325 MG TABLET PO PRN (21:45)
[2021-03-27] MEDS ORDERED: BISACODYL 10 MG RECTAL RECTAL SUPPOSITORY PR PRN (21:45)
[2021-03-27] MEDS ORDERED: IPRATROPIUM BROMIDE HFA 17 MCG/PUFF 12.9 GM INHALER IH PRN (21:45)
[2021-03-27] MEDS ORDERED: ALBUTEROL SULFATE HFA 90 MCG/PUFF 8 GM INHALER IH PRN (21:45)
[2021-03-27] MEDS ORDERED: ONDANSETRON HCL 4 MG/2 ML VIAL IVP PRN (21:45)
[2021-03-27] MEDS: FLUTICASONE/VILANTEROL 200-25 MCG/INH INHALER [14] IH SCH (22:18)
[2021-03-27] MEDS: CefTRIAXone 1 GM/DEXTROSE 50 ML IV SCH (22:19)
[2021-03-27] MEDS: ZOLPIDEM TARTRATE 5 MG TABLET PO PRN (22:21)
[2021-03-27] MEDS ORDERED: INFLUENZA VIRUS VACCINE QVS 2021-22 (6MO+)/PF 60 MCG/0.5 ML SYRINGE IM. ONE (23:30)
[2021-03-27] MEDS ORDERED: -PHARMACY VACCINE NOTE- MISC ONE (23:30)
[2021-03-27] MEDS: AZITHROMYCIN 500 MG/NS 250 ML IV SCH (23:58)
[2021-03-28] MEDS: HEPARIN SODIUM,PORCINE 10,000 UNITS/ML VIAL SQ SCH ×4 (00:02→23:09)
[2021-03-28] MEDS: MethylPREDNISolone SOD SUCC 125 MG/2 ML VIAL IVP SCH ×5 (00:02→23:09)
[2021-03-28] MEDS: IPRATROPIUM BROMIDE HFA 17 MCG/PUFF 12.9 GM INHALER IH SCH ×4 (00:04→23:10)
[2021-03-28] MEDS: ALBUTEROL SULFATE HFA 90 MCG/PUFF 8 GM INHALER IH SCH ×5 (00:04→23:10)
[2021-03-28 00:17] VITALS: BP 149/83
[2021-03-28] MEDS: HYDROCODONE/ACETAMINOPHEN 5-325 MG TABLET PO PRN ×4 (00:24→20:02)
[2021-03-28 04:00] VITALS: BP 148/116
[2021-03-28 08:23] LABS: BASOPHILS % (AUTO) 0.1 % (0.0-2.0); EOSINOPHILS % (AUTO) 0 % (1.0-6.0); HEMATOCRIT 42.7 % (41-53); HEMOGLOBIN 14.5 g/dL (13.5-17.5); LYMPHOCYTES # (AUTO) 0.2 K/uL (1.0-4.8); LYMPHOCYTES % (AUTO) 8.5 % (22.0-44.0); MEAN CORPUSCULAR HEMOGLOBIN 30.5 pg (26.0-34.0); MEAN CORPUSCULAR HGB CONC 33.9 G/dL (31.0-37.0); MEAN CORPUSCULAR VOLUME 90 fL (80-100); MONOCYTES # (AUTO) 0.1 K/uL (0.1-1.0); MONOCYTES % (AUTO) 5.3 % (2.0-9.0); NEUTROPHILS # (AUTO) 2.1 K/uL (1.8-7.7); PLATELET COUNT (AUTO) 194 K/uL (150-450); RED BLOOD CELL COUNT(AUTO) 4.73 MIL/uL (4.50-5.90); RED CELL DISTRIBUTION WIDTH 14.9 % (11.5-14.5)
[2021-03-28 08:24] LABS: NEUTROPHILS % (AUTO) 86.1 % (40.0-70.0)
[2021-03-28 08:40] LABS: ALANINE AMINOTRANSFERASE 111 U/L (12-78); ALBUMIN 3.3 g/dL (3.4-5.0); ALKALINE PHOSPHATASE 150 U/L (46-116); ANION GAP 5 mmol/L (8-16); ASPARTATE AMINOTRANSFERASE 107 U/L (15-37); BILIRUBIN,TOTAL 0.5 mg/dL (0.1-1.0); C-REACTIVE PROTEIN QUANT 1.32 mg/dL (0.00-0.30); CALCIUM, TOTAL 8.8 mg/dL (8.8-10.5); CARBON DIOXIDE 33 mmol/L (22-29); CHLORIDE 104 mmol/L (98-107); CREATININE 0.81 mg/dL (0.60-1.30); FERRITIN 127 ng/mL (26-388); GLOMERULAR FILTR. RATE CALC > 60 mL/min (>60); GLUCOSE,RANDOM 140 mg/dL (70-110); POTASSIUM 4.1 mmol/L (3.5-5.1); SODIUM SERUM 142 mmol/L (136-145); TOTAL PROTEIN, SERUM 6.6 g/dL (6.4-8.2); UREA NITROGEN, BLOOD 11 mg/dL (7-18)
[2021-03-28 08:47] VITALS: BP 164/121
[2021-03-28] MEDS: DOCUSATE SODIUM 100 MG CAPSULE PO SCH ×3 (09:48→21:00)
[2021-03-28] MEDS: BENZONATATE 100 MG CAPSULE PO SCH ×3 (09:49→20:02)
[2021-03-28] MEDS: PANTOPRAZOLE SODIUM 40 MG DR TABLET PO SCH (09:49)
[2021-03-28] MEDS: GuaiFENesin SR 600 MG ER TABLET PO SCH ×2 (09:49→20:02)
[2021-03-28 11:48] VITALS: BP 142/100
[2021-03-28 15:18] VITALS: BP 153/116
[2021-03-28] MEDS: ZOLPIDEM TARTRATE 5 MG TABLET PO PRN (20:02)
[2021-03-28] MEDS: FLUTICASONE/VILANTEROL 200-25 MCG/INH INHALER [14] IH SCH (20:03)
[2021-03-28 20:32] VITALS: BP 141/104
[2021-03-28] MEDS: CefTRIAXone 1 GM/DEXTROSE 50 ML IV SCH (21:40)
[2021-03-28] MEDS: AZITHROMYCIN 500 MG/NS 250 ML IV SCH (23:10)
[2021-03-29 00:05] VITALS: BP 143/105
[2021-03-29] MEDS: HYDROCODONE/ACETAMINOPHEN 5-325 MG TABLET PO PRN ×5 (00:14→20:23)
[2021-03-29 05:33] VITALS: BP 141/112
[2021-03-29] MEDS: MethylPREDNISolone SOD SUCC 125 MG/2 ML VIAL IVP SCH ×4 (05:48→23:23)
[2021-03-29] MEDS: ALBUTEROL SULFATE HFA 90 MCG/PUFF 8 GM INHALER IH SCH ×3 (05:48→18:30)
[2021-03-29 07:35] VITALS: BP 142/106
[2021-03-29] MEDS: BENZONATATE 100 MG CAPSULE PO SCH ×3 (08:42→20:23)
[2021-03-29] MEDS: PANTOPRAZOLE SODIUM 40 MG DR TABLET PO SCH (08:42)
[2021-03-29] MEDS: DOCUSATE SODIUM 100 MG CAPSULE PO SCH ×2 (08:42→20:23)
[2021-03-29] MEDS: HEPARIN SODIUM,PORCINE 10,000 UNITS/ML VIAL SQ SCH ×3 (08:42→23:23)
[2021-03-29] MEDS: GuaiFENesin SR 600 MG ER TABLET PO SCH ×2 (08:42→20:23)
[2021-03-29] MEDS: IPRATROPIUM BROMIDE HFA 17 MCG/PUFF 12.9 GM INHALER IH SCH ×2 (08:43→17:10)
[2021-03-29] MEDS: BUDESONIDE 0.5 MG/2 ML NEB SOLUTION NEB SCH ×2 (10:17→19:38)
[2021-03-29 11:09] LABS: BASOPHILS % (AUTO) 0.1 % (0.0-2.0); EOSINOPHILS % (AUTO) 0.3 % (1.0-6.0); HEMATOCRIT 40.6 % (41-53); HEMOGLOBIN 13.8 g/dL (13.5-17.5); LYMPHOCYTES # (AUTO) 0.3 K/uL (1.0-4.8); LYMPHOCYTES % (AUTO) 2.8 % (22.0-44.0); MEAN CORPUSCULAR HEMOGLOBIN 30.7 pg (26.0-34.0); MEAN CORPUSCULAR VOLUME 91 fL (80-100); MONOCYTES # (AUTO) 0.3 K/uL (0.1-1.0); MONOCYTES % (AUTO) 2.9 % (2.0-9.0); NEUTROPHILS # (AUTO) 11.1 K/uL (1.8-7.7); PLATELET COUNT (AUTO) 202 K/uL (150-450); RED BLOOD CELL COUNT(AUTO) 4.49 MIL/uL (4.50-5.90); RED CELL DISTRIBUTION WIDTH 14.6 % (11.5-14.5)
[2021-03-29 11:18] LABS: NEUTROPHILS % (AUTO) 93.9 % (40.0-70.0)
[2021-03-29 11:20] VITALS: BP 138/99
[2021-03-29 11:20] LABS: ALANINE AMINOTRANSFERASE 98 U/L (12-78); ALBUMIN 3.1 g/dL (3.4-5.0); ALKALINE PHOSPHATASE 124 U/L (46-116); ANION GAP 4 mmol/L (8-16); ASPARTATE AMINOTRANSFERASE 65 U/L (15-37); BILIRUBIN,TOTAL 0.5 mg/dL (0.1-1.0); CALCIUM, TOTAL 8.7 mg/dL (8.8-10.5); CARBON DIOXIDE 35 mmol/L (22-29); CHLORIDE 100 mmol/L (98-107); FERRITIN 100 ng/mL (26-388); GLOMERULAR FILTR. RATE CALC > 60 mL/min (>60); GLUCOSE,RANDOM 182 mg/dL (70-110); POTASSIUM 4.2 mmol/L (3.5-5.1); SODIUM SERUM 139 mmol/L (136-145); TOTAL PROTEIN, SERUM 6.2 g/dL (6.4-8.2); UREA NITROGEN, BLOOD 12 mg/dL (7-18)
[2021-03-29 15:32] VITALS: BP 156/93
[2021-03-29 20:23] VITALS: BP 144/100
[2021-03-29] MEDS: ZOLPIDEM TARTRATE 5 MG TABLET PO PRN (20:23)
[2021-03-29] MEDS: FLUTICASONE/VILANTEROL 200-25 MCG/INH INHALER [14] IH SCH (20:25)
[2021-03-29] MEDS: CefTRIAXone 1 GM/DEXTROSE 50 ML IV SCH (21:33)
[2021-03-29] MEDS: AZITHROMYCIN 500 MG/NS 250 ML IV SCH (23:21)
[2021-03-30] MEDS: IPRATROPIUM BROMIDE HFA 17 MCG/PUFF 12.9 GM INHALER IH SCH ×3 (00:03→16:28)
[2021-03-30] MEDS: ALBUTEROL SULFATE HFA 90 MCG/PUFF 8 GM INHALER IH SCH ×4 (00:03→18:00)
[2021-03-30 00:14] VITALS: BP 157/103
[2021-03-30] MEDS: HYDROCODONE/ACETAMINOPHEN 5-325 MG TABLET PO PRN ×5 (03:21→20:11)
[2021-03-30 04:52] VITALS: BP 144/98
[2021-03-30] MEDS: MethylPREDNISolone SOD SUCC 125 MG/2 ML VIAL IVP SCH ×3 (05:09→18:00)
[2021-03-30 07:25] VITALS: BP 158/102
[2021-03-30 08:23] LABS: ALANINE AMINOTRANSFERASE 108 U/L (12-78); ALBUMIN 3.3 g/dL (3.4-5.0); ALKALINE PHOSPHATASE 123 U/L (46-116); ANION GAP 3 mmol/L (8-16); ASPARTATE AMINOTRANSFERASE 59 U/L (15-37); BILIRUBIN,TOTAL 0.5 mg/dL (0.1-1.0); CALCIUM, TOTAL 8.8 mg/dL (8.8-10.5); CARBON DIOXIDE 40 mmol/L (22-29); CHLORIDE 98 mmol/L (98-107); CREATININE 0.75 mg/dL (0.60-1.30); FERRITIN 111 ng/mL (26-388); GLOMERULAR FILTR. RATE CALC > 60 mL/min (>60); GLUCOSE,RANDOM 152 mg/dL (70-110); POTASSIUM 4.2 mmol/L (3.5-5.1); SODIUM SERUM 141 mmol/L (136-145); TOTAL PROTEIN, SERUM 6.7 g/dL (6.4-8.2); UREA NITROGEN, BLOOD 15 mg/dL (7-18)
[2021-03-30] MEDS: DOCUSATE SODIUM 100 MG CAPSULE PO SCH ×2 (08:59→20:11)
[2021-03-30] MEDS: GuaiFENesin SR 600 MG ER TABLET PO SCH ×2 (09:00→20:11)
[2021-03-30] MEDS: BENZONATATE 100 MG CAPSULE PO SCH ×3 (09:00→20:11)
[2021-03-30] MEDS: HEPARIN SODIUM,PORCINE 10,000 UNITS/ML VIAL SQ SCH ×2 (09:01→16:28)
[2021-03-30] MEDS: PANTOPRAZOLE SODIUM 40 MG DR TABLET PO SCH (09:01)
[2021-03-30] MEDS: BUDESONIDE 0.5 MG/2 ML NEB SOLUTION NEB SCH ×2 (09:15→20:12)
[2021-03-30 09:49] LABS: BASOPHILS % (AUTO) 0.1 % (0.0-2.0); EOSINOPHILS % (AUTO) 0.3 % (1.0-6.0); HEMATOCRIT 46.6 % (41-53); HEMOGLOBIN 15.8 g/dL (13.5-17.5); LYMPHOCYTES # (AUTO) 0.2 K/uL (1.0-4.8); LYMPHOCYTES % (AUTO) 2.3 % (22.0-44.0); MEAN CORPUSCULAR HEMOGLOBIN 30.6 pg (26.0-34.0); MEAN CORPUSCULAR HGB CONC 33.9 G/dL (31.0-37.0); MEAN CORPUSCULAR VOLUME 90 fL (80-100); MONOCYTES # (AUTO) 0.3 K/uL (0.1-1.0); MONOCYTES % (AUTO) 3.2 % (2.0-9.0); NEUTROPHILS # (AUTO) 8.5 K/uL (1.8-7.7); PLATELET COUNT (AUTO) 208 K/uL (150-450); RED BLOOD CELL COUNT(AUTO) 5.16 MIL/uL (4.50-5.90)
[2021-03-30 09:57] LABS: NEUTROPHILS % (AUTO) 94.1 % (40.0-70.0)
[2021-03-30 12:50] VITALS: BP 150/113
[2021-03-30 16:35] VITALS: BP 146/113
[2021-03-30] MEDS: ZOLPIDEM TARTRATE 5 MG TABLET PO PRN (20:11)
[2021-03-30] MEDS: FLUTICASONE/VILANTEROL 200-25 MCG/INH INHALER [14] IH SCH (20:12)
[2021-03-30 21:00] VITALS: BP 146/106
[2021-03-30] MEDS: CefTRIAXone 1 GM/DEXTROSE 50 ML IV SCH (21:01)
[2021-03-30] MEDS: AZITHROMYCIN 500 MG/NS 250 ML IV SCH (22:51)
[2021-03-31] MEDS: IPRATROPIUM BROMIDE HFA 17 MCG/PUFF 12.9 GM INHALER IH SCH ×2 (00:43→08:42)
[2021-03-31] MEDS: ALBUTEROL SULFATE HFA 90 MCG/PUFF 8 GM INHALER IH SCH ×3 (00:43→11:18)
[2021-03-31] MEDS: MethylPREDNISolone SOD SUCC 125 MG/2 ML VIAL IVP SCH ×3 (00:44→11:18)
[2021-03-31] MEDS: HEPARIN SODIUM,PORCINE 10,000 UNITS/ML VIAL SQ SCH ×2 (00:45→08:39)
[2021-03-31] MEDS: HYDROCODONE/ACETAMINOPHEN 5-325 MG TABLET PO PRN ×3 (00:45→10:49)
[2021-03-31 04:19] VITALS: BP 155/112
[2021-03-31 07:51] VITALS: BP 143/108
[2021-03-31 08:31] LABS: BASOPHILS % (AUTO) 0.1 % (0.0-2.0); EOSINOPHILS % (AUTO) 0 % (1.0-6.0); HEMATOCRIT 43.8 % (41-53); LYMPHOCYTES # (AUTO) 0.2 K/uL (1.0-4.8); LYMPHOCYTES % (AUTO) 2.8 % (22.0-44.0); MEAN CORPUSCULAR HEMOGLOBIN 30.8 pg (26.0-34.0); MEAN CORPUSCULAR HGB CONC 34.2 G/dL (31.0-37.0); MEAN CORPUSCULAR VOLUME 90 fL (80-100); MONOCYTES # (AUTO) 0.5 K/uL (0.1-1.0); MONOCYTES % (AUTO) 5.6 % (2.0-9.0); PLATELET COUNT (AUTO) 231 K/uL (150-450); RED BLOOD CELL COUNT(AUTO) 4.86 MIL/uL (4.50-5.90); RED CELL DISTRIBUTION WIDTH 14.9 % (11.5-14.5)
[2021-03-31 08:35] LABS: NEUTROPHILS % (AUTO) 91.5 % (40.0-70.0)
[2021-03-31] MEDS: PANTOPRAZOLE SODIUM 40 MG DR TABLET PO SCH (08:39)
[2021-03-31] MEDS: DOCUSATE SODIUM 100 MG CAPSULE PO SCH (08:40)
[2021-03-31] MEDS: BENZONATATE 100 MG CAPSULE PO SCH (08:41)
[2021-03-31] MEDS: GuaiFENesin SR 600 MG ER TABLET PO SCH (08:41)
[2021-03-31] MEDS ORDERED: MULTIVITAMINS WITH MINERALS, THERAPEUTIC TABLET PO SCH (09:00)
[2021-03-31 09:14] LABS: ALANINE AMINOTRANSFERASE 97 U/L (12-78); ALKALINE PHOSPHATASE 108 U/L (46-116); ANION GAP -2 mmol/L (8-16); ASPARTATE AMINOTRANSFERASE 39 U/L (15-37); BILIRUBIN,TOTAL 0.5 mg/dL (0.1-1.0); CALCIUM, TOTAL 8.5 mg/dL (8.8-10.5); CARBON DIOXIDE 37 mmol/L (22-29); CHLORIDE 100 mmol/L (98-107); CREATININE 0.81 mg/dL (0.60-1.30); FERRITIN 104 ng/mL (26-388); GLOMERULAR FILTR. RATE CALC > 60 mL/min (>60); GLUCOSE,RANDOM 152 mg/dL (70-110); POTASSIUM 4.3 mmol/L (3.5-5.1); SODIUM SERUM 135 mmol/L (136-145); TOTAL PROTEIN, SERUM 6.2 g/dL (6.4-8.2); UREA NITROGEN, BLOOD 20 mg/dL (7-18)
[2021-03-31] MEDS: BUDESONIDE 0.5 MG/2 ML NEB SOLUTION NEB SCH (09:40)
[2021-03-31 11:41] VITALS: BP 138/115
== END 2021-03-31 14:40 | disposition left against medical advice (07) | DRG 137 ==
LOC: EMS 15:18 → 5N 19:31
PROVIDERS: ADMIT Internal Medicine; ATTEND Internal Medicine
DX: U07.1 COVID-19 (principal); J96.01 Acute respiratory failure with hypoxia; J12.82 Pneumonia due to coronavirus disease 2019; E43 Unspecified severe protein-calorie malnutrition; J44.0 Chronic obstructive pulmonary disease with (acute) lower respiratory infection; J44.1 Chronic obstructive pulmonary disease with (acute) exacerbation; F41.9 Anxiety disorder, unspecified; F10.10 Alcohol abuse, uncomplicated; R74.01 Elevation of levels of liver transaminase levels; Z53.29 Procedure and treatment not carried out because of patient's decision for other reasons; R79.89 Other specified abnormal findings of blood chemistry; I10 Essential (primary) hypertension; F15.10 Other stimulant abuse, uncomplicated; F20.9 Schizophrenia, unspecified; F17.210 Nicotine dependence, cigarettes, uncomplicated; Z87.01 Personal history of pneumonia (recurrent); Z91.19 Patient's noncompliance with other medical treatment and regimen; Z68.1 Body mass index [BMI] 19.9 or less, adult; Z88.8 Allergy status to other drugs, medicaments and biological substances; Z88.5 Allergy status to narcotic agent
CPT/HCPCS: 71045; 80053; 82728; 83615; 83690; 84145; 85025; 85379; 86140; 93005; 94640; 94644; 99291; G0480; J0456; J0696; J1644; J2930; J3535; J7030; Q9967; 36415-L1; 36415-TC; J7611; U0003

== ENCOUNTER 2021-04-08 12:51 | Emergency (ER) | payer OTHER ==
[~2021-04-08] VITALS: Ht 175.3 cm; Wt 50.0 kg
[2021-04-08] MEDS ORDERED: ALBUTEROL SULFATE 2.5 MG/0.5 ML NEB SOLUTION NEB ONE (14:45)
[2021-04-08] MEDS ORDERED: GuaiFENesin/D-METHORPHAN [SUGAR-FREE] 200-20MG/10 ML SYRUP UDCUP PO ONE (14:45)
[2021-04-08] MEDS ORDERED: MethylPREDNISolone SOD SUCC 125 MG/2 ML VIAL IM ONE (14:45)
[2021-04-08] MEDS ORDERED: IPRATROPIUM BROMIDE 0.5 MG/2.5 ML NEB SOLUTION NEB ONE (14:45)
[2021-04-08 15:01] LABS: BASOPHILS % (AUTO) 0.1 % (0.0-2.0); EOSINOPHILS % (AUTO) 0.5 % (1.0-6.0); HEMATOCRIT 43.6 % (41-53); HEMOGLOBIN 14.5 g/dL (13.5-17.5); LYMPHOCYTES # (AUTO) 1.8 K/uL (1.0-4.8); LYMPHOCYTES % (AUTO) 12.6 % (22.0-44.0); MEAN CORPUSCULAR HEMOGLOBIN 29.6 pg (26.0-34.0); MEAN CORPUSCULAR HGB CONC 33.3 G/dL (31.0-37.0); MEAN CORPUSCULAR VOLUME 89 fL (80-100); MONOCYTES # (AUTO) 0.7 K/uL (0.1-1.0); MONOCYTES % (AUTO) 4.9 % (2.0-9.0); NEUTROPHILS # (AUTO) 11.8 K/uL (1.8-7.7); NEUTROPHILS % (AUTO) 81.9 % (40.0-70.0); PLATELET COUNT (AUTO) 433 K/uL (150-450); RED BLOOD CELL COUNT(AUTO) 4.89 MIL/uL (4.50-5.90)
[2021-04-08 15:22] LABS: ANION GAP 8 mmol/L (8-16); CALCIUM, TOTAL 8.3 mg/dL (8.8-10.5); CARBON DIOXIDE 32 mmol/L (22-29); CHLORIDE 106 mmol/L (98-107); CREATININE 0.65 mg/dL (0.60-1.30); GLOMERULAR FILTR. RATE CALC > 60 mL/min (>60); GLUCOSE,RANDOM 100 mg/dL (70-110); POTASSIUM 3.4 mmol/L (3.5-5.1); SODIUM SERUM 146 mmol/L (136-145); UREA NITROGEN, BLOOD 18 mg/dL (7-18)
[2021-04-08 15:28] LABS: ALANINE AMINOTRANSFERASE 75 U/L (12-78); ALBUMIN 3.4 g/dL (3.4-5.0); ALKALINE PHOSPHATASE 110 U/L (46-116); ASPARTATE AMINOTRANSFERASE 25 U/L (15-37); BILIRUBIN,TOTAL 0.7 mg/dL (0.1-1.0)
[2021-04-08] MEDS ORDERED: LORazepam 1 MG TABLET PO ONE (15:30)
[2021-04-08 16:53] VITALS: BP 144/81
== END 2021-04-08 16:54 | disposition home or self-care (01) ==
LOC: EMS 12:56
DX: F10.229 Alcohol dependence with intoxication, unspecified (principal); J45.901 Unspecified asthma with (acute) exacerbation; I10 Essential (primary) hypertension; F20.9 Schizophrenia, unspecified; F15.90 Other stimulant use, unspecified, uncomplicated; F17.210 Nicotine dependence, cigarettes, uncomplicated; Z88.5 Allergy status to narcotic agent; Z88.8 Allergy status to other drugs, medicaments and biological substances; Z79.899 Other long term (current) drug therapy; Y90.8 Blood alcohol level of 240 mg/100 ml or more
CPT/HCPCS: 36415; 71045; 80053; 84484; 85025; 93005; 94640; 96372; 99285; G0480; J2930; J7613

== ENCOUNTER 2021-04-20 13:02 | Emergency (ER) | payer OTHER ==
[~2021-04-20] VITALS: Ht 167.6 cm; Wt 59.1 kg
[2021-04-20] MEDS ORDERED: ALBUTEROL SULFATE 2.5 MG/0.5 ML NEB SOLUTION NEB ONE (15:30)
[2021-04-20] MEDS ORDERED: IPRATROPIUM BROMIDE 0.5 MG/2.5 ML NEB SOLUTION NEB ONE (15:30)
[2021-04-20] MEDS ORDERED: LORazepam 2 MG TABLET PO ONE (15:30)
[2021-04-20] MEDS ORDERED: LORazepam 1 MG TABLET PO ONE (15:30)
[2021-04-20] MEDS ORDERED: MethylPREDNISolone SOD SUCC 125 MG/2 ML VIAL IVP ONE (15:30)
[2021-04-20 16:24] LABS: ANION GAP 6 mmol/L (8-16); CALCIUM, TOTAL 7.9 mg/dL (8.8-10.5); CARBON DIOXIDE 36 mmol/L (22-29); CHLORIDE 105 mmol/L (98-107); CREATININE 0.79 mg/dL (0.60-1.30); GLOMERULAR FILTR. RATE CALC > 60 mL/min (>60); GLUCOSE,RANDOM 93 mg/dL (70-110); POTASSIUM 3.7 mmol/L (3.5-5.1); SODIUM SERUM 147 mmol/L (136-145); UREA NITROGEN, BLOOD 6 mg/dL (7-18)
[2021-04-20 16:28] LABS: BASOPHILS % (AUTO) 0.8 % (0.0-2.0); EOSINOPHILS % (AUTO) 2.3 % (1.0-6.0); HEMATOCRIT 47.6 % (41-53); HEMOGLOBIN 15.8 g/dL (13.5-17.5); LYMPHOCYTES % (AUTO) 38.3 % (22.0-44.0); MEAN CORPUSCULAR HEMOGLOBIN 30.1 pg (26.0-34.0); MEAN CORPUSCULAR HGB CONC 33.1 G/dL (31.0-37.0); MEAN CORPUSCULAR VOLUME 91 fL (80-100); MONOCYTES # (AUTO) 0.4 K/uL (0.1-1.0); MONOCYTES % (AUTO) 8.5 % (2.0-9.0); NEUTROPHILS # (AUTO) 2.6 K/uL (1.8-7.7); NEUTROPHILS % (AUTO) 50.1 % (40.0-70.0); PLATELET COUNT (AUTO) 366 K/uL (150-450); RED BLOOD CELL COUNT(AUTO) 5.24 MIL/uL (4.50-5.90); RED CELL DISTRIBUTION WIDTH 15.5 % (11.5-14.5)
[2021-04-20 16:35] LABS: ALANINE AMINOTRANSFERASE 35 U/L (12-78); ALBUMIN 3.6 g/dL (3.4-5.0); ALKALINE PHOSPHATASE 146 U/L (46-116); ASPARTATE AMINOTRANSFERASE 30 U/L (15-37); BILIRUBIN,TOTAL 0.4 mg/dL (0.1-1.0); TOTAL PROTEIN, SERUM 7.3 g/dL (6.4-8.2)
[2021-04-20] MEDS ORDERED: FLUO20CA36 PO (17:53)
[2021-04-20] MEDS ORDERED: OLAN5TAB52 PO (17:54)
[2021-04-20 18:35] VITALS: BP 144/95
[2021-04-20] MEDS ORDERED: OXYGEN THERAPY IH SCH (20:00)
== END 2021-04-20 18:42 | disposition home or self-care (01) ==
LOC: EMS 13:08
DX: J44.1 Chronic obstructive pulmonary disease with (acute) exacerbation (principal); F10.129 Alcohol abuse with intoxication, unspecified; R07.89 Other chest pain; F41.9 Anxiety disorder, unspecified; I10 Essential (primary) hypertension; F20.9 Schizophrenia, unspecified; F17.210 Nicotine dependence, cigarettes, uncomplicated; F19.90 Other psychoactive substance use, unspecified, uncomplicated; Z88.5 Allergy status to narcotic agent; Z88.8 Allergy status to other drugs, medicaments and biological substances; Y90.7 Blood alcohol level of 200-239 mg/100 ml
CPT/HCPCS: 36415; 71045; 80053; 84484; 85025; 94640; 96374; 99285; G0480; J2930; J7613

== ENCOUNTER 2021-04-29 10:04 | Inpatient (IN) | payer OTHER ==
[~2021-04-29] VITALS: Ht 175.3 cm; Wt 53.4 kg
[~2021-04-29 10:04] MED LIST changes: +FLUO20CA36 PO
[2021-04-29] MEDS ORDERED: OXYGEN THERAPY IH SCH (11:15)
[2021-04-29] MEDS ORDERED: IPRATROPIUM BROMIDE 0.5 MG/2.5 ML NEB SOLUTION NEB ONE (11:15)
[2021-04-29] MEDS ORDERED: MethylPREDNISolone SOD SUCC 125 MG/2 ML VIAL IVP ONE (11:15)
[2021-04-29] MEDS ORDERED: ALBUTEROL SULFATE 5 MG/ML 20 ML NEB SOLN [BULK] NEB ONE ×2 (11:15→12:00)
[2021-04-29 11:51] LABS: BASOPHILS % (AUTO) 0.8 % (0.0-2.0); EOSINOPHILS % (AUTO) 3.1 % (1.0-6.0); HEMATOCRIT 47.5 % (41-53); HEMOGLOBIN 16.2 g/dL (13.5-17.5); LYMPHOCYTES # (AUTO) 1.4 K/uL (1.0-4.8); LYMPHOCYTES % (AUTO) 33.4 % (22.0-44.0); MEAN CORPUSCULAR HEMOGLOBIN 31.1 pg (26.0-34.0); MEAN CORPUSCULAR HGB CONC 34.1 G/dL (31.0-37.0); MEAN CORPUSCULAR VOLUME 91 fL (80-100); MONOCYTES # (AUTO) 0.4 K/uL (0.1-1.0); MONOCYTES % (AUTO) 10.4 % (2.0-9.0); NEUTROPHILS # (AUTO) 2.2 K/uL (1.8-7.7); NEUTROPHILS % (AUTO) 52.3 % (40.0-70.0); PLATELET COUNT (AUTO) 304 K/uL (150-450); RED BLOOD CELL COUNT(AUTO) 5.21 MIL/uL (4.50-5.90); RED CELL DISTRIBUTION WIDTH 16.3 % (11.5-14.5)
[2021-04-29 12:03] LABS: ANION GAP 5 mmol/L (8-16); CALCIUM, TOTAL 8.7 mg/dL (8.8-10.5); CARBON DIOXIDE 37 mmol/L (22-29); CHLORIDE 104 mmol/L (98-107); CREATININE 0.88 mg/dL (0.60-1.30); GLOMERULAR FILTR. RATE CALC > 60 mL/min (>60); GLUCOSE,RANDOM 85 mg/dL (70-110); POTASSIUM 3.8 mmol/L (3.5-5.1); SODIUM SERUM 146 mmol/L (136-145); UREA NITROGEN, BLOOD 10 mg/dL (7-18)
[2021-04-29 12:07] LABS: ALANINE AMINOTRANSFERASE 43 U/L (12-78); ALBUMIN 4.1 g/dL (3.4-5.0); ALKALINE PHOSPHATASE 137 U/L (46-116); ASPARTATE AMINOTRANSFERASE 34 U/L (15-37); BILIRUBIN,TOTAL 0.5 mg/dL (0.1-1.0); TOTAL PROTEIN, SERUM 8.2 g/dL (6.4-8.2)
[2021-04-29 12:21] LABS: B-TYPE NATRIURETIC PEPTIDE 17 pg/mL (0-100)
[2021-04-29] MEDS ORDERED: LORazepam 2 MG/ML VIAL IVP ONE ×2 (12:45→15:15)
[2021-04-29] MEDS ORDERED: 0.9% SODIUM CHLORIDE 10 ML SYRINGE IVP PRN (13:00)
[2021-04-29] MEDS ORDERED: ACETAMINOPHEN 325 MG TABLET PO PRN ×2 (13:00→20:15)
[2021-04-29] MEDS ORDERED: ONDANSETRON HCL 4 MG/2 ML VIAL IVP PRN ×2 (13:00→20:15)
[2021-04-29] MEDS: IPRATROPIUM BROMIDE 0.5 MG/2.5 ML NEB SOLUTION NEB SCH ×3 (14:44→23:00)
[2021-04-29 14:46] LABS: COVID AG,FIA SOURCE NASAL SWAB
[2021-04-29] MEDS: ALBUTEROL SULFATE 2.5 MG/0.5 ML NEB SOLUTION NEB SCH ×3 (15:00→23:00)
[2021-04-29] MEDS ORDERED: METOPROLOL TARTRATE 5 MG/5 ML VIAL IVP ONE (15:15)
[2021-04-29] MEDS ORDERED: METOPROLOL TARTRATE 50 MG TABLET PO ONE (15:15)
[2021-04-29] MEDS ORDERED: MAGNESIUM SULFATE 2 GM, MVI, ADULT NO.1 WITH VIT K 10 ML, THIAMINE 100 MG, FOLIC ACID 1... IV ONE ×5 (16:00)
[2021-04-29] MEDS ORDERED: SODIUM CHLORIDE 0.9% 2,000 ML IV ONE (16:00)
[2021-04-29 19:00] VITALS: BP 154/115
[2021-04-29] MEDS ORDERED: ALBUTEROL SULFATE 2.5 MG/0.5 ML NEB SOLUTION NEB PRN (20:15)
[2021-04-29] MEDS ORDERED: IPRATROPIUM BROMIDE 0.5 MG/2.5 ML NEB SOLUTION NEB PRN (20:15)
[2021-04-29] MEDS ORDERED: OxyCODONE HCL/ACETAMINOPHEN 5-325 MG TABLET PO PRN (20:15)
[2021-04-29] MEDS ORDERED: MAGNESIUM HYDROXIDE SUSPENSION 30 ML UDCUP PO PRN (20:15)
[2021-04-29] MEDS ORDERED: BISACODYL 10 MG RECTAL RECTAL SUPPOSITORY PR PRN (20:15)
[2021-04-29] MEDS: DOCUSATE SODIUM 100 MG CAPSULE PO SCH (21:06)
[2021-04-29] MEDS: OLANZapine 5 MG TABLET PO SCH (21:06)
[2021-04-29] MEDS: FLUoxetine HCL 20 MG CAPSULE PO SCH (21:06)
[2021-04-29] MEDS: ZOLPIDEM TARTRATE 5 MG TABLET PO PRN (21:08)
[2021-04-29] MEDS: HEPARIN SODIUM,PORCINE 5,000 UNITS/ML VIAL SQ SCH (23:42)
[2021-04-29] MEDS: MethylPREDNISolone SOD SUCC 125 MG/2 ML VIAL IVP SCH (23:59)
[2021-04-30 00:14] VITALS: BP 142/93
[2021-04-30] MEDS: IPRATROPIUM BROMIDE 0.5 MG/2.5 ML NEB SOLUTION NEB SCH ×6 (03:19→23:55)
[2021-04-30] MEDS: ALBUTEROL SULFATE 2.5 MG/0.5 ML NEB SOLUTION NEB SCH ×6 (03:19→23:55)
[2021-04-30 04:44] VITALS: BP 160/117
[2021-04-30] MEDS: MethylPREDNISolone SOD SUCC 125 MG/2 ML VIAL IVP SCH ×3 (06:35→17:00)
[2021-04-30 07:34] VITALS: BP 146/91
[2021-04-30] MEDS: DOCUSATE SODIUM 100 MG CAPSULE PO SCH ×2 (08:38→21:32)
[2021-04-30] MEDS: PANTOPRAZOLE SODIUM 40 MG DR TABLET PO SCH (08:39)
[2021-04-30] MEDS: HEPARIN SODIUM,PORCINE 5,000 UNITS/ML VIAL SQ SCH ×2 (08:39→17:01)
[2021-04-30] MEDS: OLANZapine 5 MG TABLET PO SCH ×2 (08:39→21:33)
[2021-04-30 11:25] VITALS: BP 144/97
[2021-04-30 18:26] LABS: GLUCOMETER DEV NAME(LOC) 5N.1C; GLUCOSE,POINT OF CARE 165 MG/DL (70-110)
[2021-04-30 18:48] LABS: ABG BASE EXCESS 4.2 mmol/L (-2.0-3.0); ABG CARBOXYHEMOGLOBIN 0.9 % (0.0-1.5); ABG HCO3 24.1 mmol/L (22.0-26.0); ABG METHEMOGLOBIN 0.2 % (0.0-1.5); ABG OXYGEN CONTENT 16.1 mL/dL (15.0-23.0); ABG OXYHEMOGLOBIN 78.7 % (94.0-100.0); ABG TOTAL HEMOGLOBIN 14.6 G/dL (12.0-18.0); SOURCE, BLOOD GAS ARTERIAL; TEMPERATURE, FAHRENHEIT, BG 97.8 FAHREN (96.0-98.6)
[2021-04-30 19:08] LABS: ABG OXYGEN SATURATION 79.6 % (95.0-98.0); ABG PCO2 122 mmHg (35-45); ABG PH 7.066 (7.350-7.450); O2 DEVICE,BLOOD GAS BIPAP (ROOM AIR); PO2, ARTERIAL BG 43.5 mmHg (92.0-100.0); SITE, BLOOD GAS RT BRACHIAL
[2021-04-30 19:09] LABS: INSPIRATORY TIME, BG 0.9 SEC; SPONTANEOUS VT, BG 381 ml
[2021-04-30 20:40] VITALS: BP 137/84
[2021-04-30 21:29] LABS: ABG BASE EXCESS 5.3 mmol/L (-2.0-3.0); ABG CARBOXYHEMOGLOBIN 1.3 % (0.0-1.5); ABG METHEMOGLOBIN 0.3 % (0.0-1.5); ABG OXYGEN CONTENT 18.6 mL/dL (15.0-23.0); ABG OXYHEMOGLOBIN 91.5 % (94.0-100.0); ABG TOTAL HEMOGLOBIN 14.5 G/dL (12.0-18.0); PO2, ARTERIAL BG 65.1 mmHg (92.0-100.0); SOURCE, BLOOD GAS ARTERIAL; TEMPERATURE, FAHRENHEIT, BG 98.6 FAHREN (96.0-98.6)
[2021-04-30 21:30] LABS: ABG PH 7.163 (7.350-7.450)
[2021-04-30 21:31] LABS: ABG PCO2 97 mmHg (35-45); O2 DEVICE,BLOOD GAS BIPAP (ROOM AIR); SITE, BLOOD GAS RT BRACHIAL; SPONTANEOUS VT, BG 370 ml
[2021-04-30 21:32] LABS: INSPIRATORY TIME, BG 0.9 SEC
[2021-04-30] MEDS: FLUoxetine HCL 20 MG CAPSULE PO SCH (21:33)
[2021-04-30] MEDS: ZOLPIDEM TARTRATE 5 MG TABLET PO PRN (21:33)
[2021-04-30 23:33] LABS: ABG BASE EXCESS 7.5 mmol/L (-2.0-3.0); ABG HCO3 28.2 mmol/L (22.0-26.0); ABG METHEMOGLOBIN 0.3 % (0.0-1.5); ABG OXYGEN CONTENT 18.6 mL/dL (15.0-23.0); ABG OXYGEN SATURATION 94.4 % (95.0-98.0); ABG OXYHEMOGLOBIN 93.2 % (94.0-100.0); ABG TOTAL HEMOGLOBIN 14.2 G/dL (12.0-18.0); PO2, ARTERIAL BG 68.8 mmHg (92.0-100.0); SOURCE, BLOOD GAS ARTERIAL; TEMPERATURE, FAHRENHEIT, BG 98.6 FAHREN (96.0-98.6)
[2021-04-30 23:34] LABS: ABG PCO2 92 mmHg (35-45); ABG PH 7.206 (7.350-7.450); O2 DEVICE,BLOOD GAS BIPAP (ROOM AIR); SITE, BLOOD GAS RT BRACHIAL; SPONTANEOUS VT, BG 350 ml
[2021-04-30 23:35] LABS: INSPIRATORY TIME, BG 0.9 SEC
[2021-05-01] VITALS (7 sets, daily range): BP systolic 118–178; BP diastolic 78–118
[2021-05-01] MEDS: HEPARIN SODIUM,PORCINE 5,000 UNITS/ML VIAL SQ SCH ×3 (00:01→17:16)
[2021-05-01] MEDS: MethylPREDNISolone SOD SUCC 125 MG/2 ML VIAL IVP SCH ×2 (00:04→06:10)
[2021-05-01] MEDS: LORazepam 2 MG/ML VIAL IVP PRN ×3 (00:16→21:25)
[2021-05-01] MEDS: IPRATROPIUM BROMIDE 0.5 MG/2.5 ML NEB SOLUTION NEB SCH ×6 (03:16→23:00)
[2021-05-01] MEDS: ALBUTEROL SULFATE 2.5 MG/0.5 ML NEB SOLUTION NEB SCH ×6 (03:17→23:00)
[2021-05-01 07:17] LABS: ABG BASE EXCESS 14.5 mmol/L (-2.0-3.0); ABG CARBOXYHEMOGLOBIN 0.6 % (0.0-1.5); ABG HCO3 35.7 mmol/L (22.0-26.0); ABG METHEMOGLOBIN 0.3 % (0.0-1.5); ABG OXYGEN CONTENT 17.6 mL/dL (15.0-23.0); ABG OXYGEN SATURATION 93.7 % (95.0-98.0); ABG OXYHEMOGLOBIN 92.9 % (94.0-100.0); ABG PCO2 59 mmHg (35-45); ABG PH 7.434 (7.350-7.450); ABG TOTAL HEMOGLOBIN 13.5 G/dL (12.0-18.0); PO2, ARTERIAL BG 57.8 mmHg (92.0-100.0); SOURCE, BLOOD GAS ARTERIAL; TEMPERATURE, FAHRENHEIT, BG 97.4 FAHREN (96.0-98.6)
[2021-05-01 07:19] LABS: ABG A-A DIFF O2 87.3 mmHg (10-20.0); O2 DEVICE,BLOOD GAS BIPAP (ROOM AIR); SITE, BLOOD GAS RT BRACHIAL
[2021-05-01 07:20] LABS: INSPIRATORY TIME, BG 0.9 SEC; SPONTANEOUS VT, BG 443 ml
[2021-05-01] MEDS: OLANZapine 5 MG TABLET PO SCH ×2 (09:00→21:07)
[2021-05-01] MEDS: PANTOPRAZOLE SODIUM 40 MG DR TABLET PO SCH (09:39)
[2021-05-01] MEDS: DOCUSATE SODIUM 100 MG CAPSULE PO SCH ×2 (09:39→21:08)
[2021-05-01] MEDS ORDERED: CloNIDine HCL 0.1 MG TABLET PO PRN (12:00)
[2021-05-01] MEDS: PredniSONE 20 MG TABLET PO SCH (12:17)
[2021-05-01] MEDS ORDERED: CloNIDine HCL 0.1 MG TABLET PO ONE (14:30)
[2021-05-01] MEDS: ChlordiazePOXIDE HCL 10 MG CAPSULE PO SCH ×2 (14:39→21:07)
[2021-05-01] MEDS: FLUoxetine HCL 20 MG CAPSULE PO SCH (21:08)
[2021-05-01] MEDS: ZOLPIDEM TARTRATE 5 MG TABLET PO PRN (21:24)
[2021-05-02] MEDS: HEPARIN SODIUM,PORCINE 5,000 UNITS/ML VIAL SQ SCH ×4 (00:14→23:33)
[2021-05-02] MEDS: IPRATROPIUM BROMIDE 0.5 MG/2.5 ML NEB SOLUTION NEB SCH ×6 (03:00→23:00)
[2021-05-02] MEDS: ALBUTEROL SULFATE 2.5 MG/0.5 ML NEB SOLUTION NEB SCH ×6 (03:00→23:00)
[2021-05-02] MEDS: PredniSONE 20 MG TABLET PO SCH ×2 (03:20→12:26)
[2021-05-02 04:53] VITALS: BP 139/90
[2021-05-02] MEDS: LORazepam 2 MG/ML VIAL IVP PRN ×2 (06:31→20:11)
[2021-05-02 07:35] VITALS: BP 149/105
[2021-05-02] MEDS: OLANZapine 5 MG TABLET PO SCH ×2 (08:57→20:09)
[2021-05-02] MEDS: MULTIVITAMINS WITH MINERALS, THERAPEUTIC TABLET PO SCH (08:58)
[2021-05-02] MEDS: ChlordiazePOXIDE HCL 10 MG CAPSULE PO SCH ×2 (08:58→20:09)
[2021-05-02] MEDS: PANTOPRAZOLE SODIUM 40 MG DR TABLET PO SCH (08:58)
[2021-05-02] MEDS: DOCUSATE SODIUM 100 MG CAPSULE PO SCH ×2 (08:58→20:09)
[2021-05-02 11:30] VITALS: BP 149/99
[2021-05-02 15:34] VITALS: BP 164/122
[2021-05-02 17:07] VITALS: BP 133/108
[2021-05-02] MEDS: FLUoxetine HCL 20 MG CAPSULE PO SCH (20:09)
[2021-05-02 21:27] VITALS: BP 123/84
[2021-05-02] MEDS: ZOLPIDEM TARTRATE 5 MG TABLET PO PRN (23:36)
[2021-05-03 01:52] VITALS: BP 144/100
[2021-05-03] MEDS: ALBUTEROL SULFATE 2.5 MG/0.5 ML NEB SOLUTION NEB SCH ×4 (03:00→15:00)
[2021-05-03] MEDS: IPRATROPIUM BROMIDE 0.5 MG/2.5 ML NEB SOLUTION NEB SCH ×4 (03:00→15:00)
[2021-05-03 05:01] VITALS: BP 132/74
[2021-05-03] MEDS: PANTOPRAZOLE SODIUM 40 MG DR TABLET PO SCH (08:25)
[2021-05-03] MEDS: PredniSONE 20 MG TABLET PO SCH (08:25)
[2021-05-03] MEDS: HEPARIN SODIUM,PORCINE 5,000 UNITS/ML VIAL SQ SCH ×2 (08:25→17:40)
[2021-05-03] MEDS: DOCUSATE SODIUM 100 MG CAPSULE PO SCH ×2 (08:25→20:11)
[2021-05-03] MEDS: OLANZapine 5 MG TABLET PO SCH ×2 (08:25→20:11)
[2021-05-03] MEDS: ChlordiazePOXIDE HCL 10 MG CAPSULE PO SCH ×2 (08:25→20:11)
[2021-05-03] MEDS: MULTIVITAMINS WITH MINERALS, THERAPEUTIC TABLET PO SCH (08:26)
[2021-05-03 08:36] VITALS: BP 149/109
[2021-05-03] MEDS: LORazepam 2 MG/ML VIAL IVP PRN ×2 (10:45→19:21)
[2021-05-03 12:25] VITALS: BP 132/92
[2021-05-03 16:27] VITALS: BP 107/85
[2021-05-03 19:10] VITALS: BP 115/66
[2021-05-03] MEDS: ZOLPIDEM TARTRATE 5 MG TABLET PO PRN (20:11)
[2021-05-03] MEDS: FLUoxetine HCL 20 MG CAPSULE PO SCH (20:11)
== END 2021-05-03 21:20 | disposition home or self-care (01) | DRG 140 ==
LOC: EMS 10:21 → 6N 14:56 → 5S 14:57
PROVIDERS: ADMIT Hospitalist; ATTEND Hospitalist
PROC: 5A09357 Assistance with Respiratory Ventilation, Less than 24 Consecutive Hours, Continuous Positive Airway Pressure (ICD-10-PCS; principal; 2021-04-30)
DX: J44.1 Chronic obstructive pulmonary disease with (acute) exacerbation (principal); J96.01 Acute respiratory failure with hypoxia; R64 Cachexia; E43 Unspecified severe protein-calorie malnutrition; E87.0 Hyperosmolality and hypernatremia; R65.10 Systemic inflammatory response syndrome (SIRS) of non-infectious origin without acute organ dysfunction; J96.02 Acute respiratory failure with hypercapnia; F41.9 Anxiety disorder, unspecified; Z20.822 Contact with and (suspected) exposure to COVID-19; I10 Essential (primary) hypertension; F10.120 Alcohol abuse with intoxication, uncomplicated; F20.9 Schizophrenia, unspecified; Z87.891 Personal history of nicotine dependence; Z68.1 Body mass index [BMI] 19.9 or less, adult; Z79.899 Other long term (current) drug therapy; Z88.5 Allergy status to narcotic agent; Z88.8 Allergy status to other drugs, medicaments and biological substances
CPT/HCPCS: 36600; 71045; 80053; 82805; 82962; 83880; 84484; 85025; 93005; 94640; 94644; 94660; 99285; G0480; J1644; J2060; J2930; J3411; J3475; J3490; J7030; 36415-L1; 36415-TC; 82803-TC; J7611; J7613

== ENCOUNTER 2021-05-20 17:46 | Inpatient (IN) | payer OTHER ==
[~2021-05-20] VITALS: Ht 180.3 cm; Wt 46.0 kg
[2021-05-20 19:48] LABS: COVID AG,FIA SOURCE NASOPHARYNGEAL
[2021-05-20] MEDS ORDERED: IBUPROFEN 600 MG TABLET PO ONE (21:00)
[2021-05-20] MEDS ORDERED: ALBUTEROL SULFATE HFA 90 MCG/PUFF 8 GM INHALER IH ONE (21:15)
[2021-05-20] MEDS ORDERED: PredniSONE 20 MG TABLET PO ONE (21:15)
[2021-05-20] MEDS ORDERED: ALBUTEROL SULFATE 5 MG/ML 20 ML NEB SOLN [BULK] NEB ONE (22:15)
[2021-05-20] MEDS ORDERED: IPRATROPIUM BROMIDE 0.5 MG/2.5 ML NEB SOLUTION NEB ONE (22:15)
[2021-05-20] MEDS ORDERED: 0.9% SODIUM CHLORIDE 5 ML NEB SOLUTION NEB ONE (22:21)
[2021-05-20 22:45] LABS: ABG BASE EXCESS 6.7 mmol/L (-2.0-3.0); ABG HCO3 28.7 mmol/L (22.0-26.0); ABG METHEMOGLOBIN 0.4 % (0.0-1.5); ABG OXYGEN CONTENT 18.6 mL/dL (15.0-23.0); ABG OXYGEN SATURATION 92.3 % (95.0-98.0); ABG PCO2 59 mmHg (35-45); ABG PH 7.356 (7.350-7.450); ABG TOTAL HEMOGLOBIN 14.5 G/dL (12.0-18.0); PO2, ARTERIAL BG 71.2 mmHg (92.0-100.0); SOURCE, BLOOD GAS ARTERIAL; TEMPERATURE, FAHRENHEIT, BG 98.6 FAHREN (96.0-98.6)
[2021-05-20 22:46] LABS: SITE, BLOOD GAS LFT BRACHIAL
[2021-05-20 22:47] LABS: O2 DEVICE,BLOOD GAS CANNULA (ROOM AIR)
[2021-05-20 22:52] LABS: AMPHET/METH SCREEN,URINE NEGATIVE (NEGATIVE); BARBITURATE SCREEN, URINE NEGATIVE (NEGATIVE); BENZODIAZEPINES SCREEN,URINE POSITIVE (NEGATIVE); CANNABINOID SCREEN,URINE NEGATIVE (NEGATIVE); COCAINE SCREEN,URINE NEGATIVE (NEGATIVE); METHADONE SCREEN, URINE NEGATIVE (NEGATIVE); OPIATE SCREEN,URINE NEGATIVE (NEGATIVE)
[2021-05-20 22:53] LABS: PHENCYCLIDINE SCREEN,URINE NEGATIVE (NEGATIVE)
[2021-05-20 22:59] LABS: BASOPHILS % (AUTO) 0.6 % (0.0-2.0); EOSINOPHILS % (AUTO) 0.3 % (1.0-6.0); HEMATOCRIT 44.8 % (41-53); LYMPHOCYTES # (AUTO) 0.4 K/uL (1.0-4.8); LYMPHOCYTES % (AUTO) 5.1 % (22.0-44.0); MEAN CORPUSCULAR HEMOGLOBIN 31.3 pg (26.0-34.0); MEAN CORPUSCULAR HGB CONC 33.5 G/dL (31.0-37.0); MEAN CORPUSCULAR VOLUME 93 fL (80-100); MONOCYTES # (AUTO) 0.3 K/uL (0.1-1.0); MONOCYTES % (AUTO) 3.6 % (2.0-9.0); NEUTROPHILS # (AUTO) 7.2 K/uL (1.8-7.7); PLATELET COUNT (AUTO) 265 K/uL (150-450); RED CELL DISTRIBUTION WIDTH 17.7 % (11.5-14.5)
[2021-05-20 23:01] LABS: NEUTROPHILS % (AUTO) 90.4 % (40.0-70.0)
[2021-05-20 23:14] LABS: ANION GAP 12 mmol/L (8-16); CALCIUM, TOTAL 8.7 mg/dL (8.8-10.5); CARBON DIOXIDE 32 mmol/L (22-29); CHLORIDE 99 mmol/L (98-107); CREATININE 0.85 mg/dL (0.60-1.30); GLOMERULAR FILTR. RATE CALC > 60 mL/min (>60); GLUCOSE,RANDOM 155 mg/dL (70-110); POTASSIUM 3.9 mmol/L (3.5-5.1); SODIUM SERUM 143 mmol/L (136-145); UREA NITROGEN, BLOOD 20 mg/dL (7-18)
[2021-05-20] MEDS ORDERED: MethylPREDNISolone SOD SUCC 125 MG/2 ML VIAL IVP ONE (23:15)
[2021-05-20 23:21] LABS: B-TYPE NATRIURETIC PEPTIDE 71 pg/mL (0-100)
[2021-05-20 23:44] LABS: ALANINE AMINOTRANSFERASE 59 U/L (12-78); ALBUMIN 3.7 g/dL (3.4-5.0); ALKALINE PHOSPHATASE 182 U/L (46-116); ASPARTATE AMINOTRANSFERASE 64 U/L (15-37); BILIRUBIN,TOTAL 0.7 mg/dL (0.1-1.0); CREATINE KINASE, TOTAL ONLY 77 U/L (39-308); TOTAL PROTEIN, SERUM 7.5 g/dL (6.4-8.2)
[2021-05-21] VITALS (9 sets, daily range): BP systolic 110–144; BP diastolic 64–91
[2021-05-21] MEDS ORDERED: ONDANSETRON HCL 4 MG/2 ML VIAL IVP ONE (01:30)
[2021-05-21] MEDS ORDERED: KETOROLAC TROMETHAMINE 30 MG/ML VIAL IVP ONE (02:30)
[2021-05-21] MEDS ORDERED: KETOROLAC TROMETHAMINE 15 MG/ML VIAL IVP ONE ×2 (02:30→05:15)
[2021-05-21] MEDS ORDERED: ALBUTEROL SULFATE HFA 90 MCG/PUFF 8 GM INHALER IH PRN (02:45)
[2021-05-21] MEDS ORDERED: ACETAMINOPHEN 325 MG TABLET PO PRN (02:45)
[2021-05-21] MEDS: HYDROmorphone 2 MG/ML VIAL IVP PRN ×2 (02:54→17:27)
[2021-05-21] MEDS ORDERED: MELATONIN 3 MG TABLET PO ONE (03:00)
[2021-05-21] MEDS: MELATONIN 3 MG TABLET PO PRN (03:20)
[2021-05-21] MEDS ORDERED: 1: MAGNESIUM SULFATE 2 GM, MVI, ADULT NO.1 WITH VIT K 10 ML, THIAMINE 100 MG, FOLIC ACID IV SCH ×5 (03:30)
[2021-05-21] MEDS: LORazepam 2 MG TABLET PO PRN ×2 (04:34→08:02)
[2021-05-21] MEDS ORDERED: INFLUENZA VIRUS VACCINE QVS 2021-22 (6MO+)/PF 60 MCG/0.5 ML SYRINGE IM. ONE (05:45)
[2021-05-21] MEDS ORDERED: -PHARMACY VACCINE NOTE- MISC ONE (05:45)
[2021-05-21] MEDS ORDERED: ALBUTEROL SULFATE 2.5 MG/0.5 ML NEB SOLUTION NEB PRN (07:45)
[2021-05-21] MEDS ORDERED: IPRATROPIUM BROMIDE 0.5 MG/2.5 ML NEB SOLUTION NEB PRN (07:45)
[2021-05-21] MEDS: HEPARIN SODIUM,PORCINE 5,000 UNITS/ML VIAL SQ SCH ×2 (08:02→17:15)
[2021-05-21] MEDS: MethylPREDNISolone SOD SUCC 40 MG/ML VIAL IVP SCH ×2 (08:04→17:15)
[2021-05-21] MEDS: FAMOTIDINE 10 MG/ML 2 ML VIAL IVP SCH ×2 (08:04→20:02)
[2021-05-21] MEDS: OLANZapine 5 MG TABLET PO SCH ×2 (08:05→20:03)
[2021-05-21] MEDS ORDERED: MISC MED-CONVERTED FROM AMBULATORY (Fluticasone/Umeclidin/Vilanter (Trelegy Ellipta 100-62 IH SCH (09:00)
[2021-05-21] MEDS ORDERED: IOHEXOL 350 MG/ML 100 ML VIAL ONE (09:18)
[2021-05-21] MEDS: LORazepam 2 MG/ML VIAL IVP PRN (15:09)
[2021-05-21] MEDS: FLUoxetine HCL 20 MG CAPSULE PO SCH (20:03)
[2021-05-22] MEDS: HEPARIN SODIUM,PORCINE 5,000 UNITS/ML VIAL SQ SCH ×4 (00:16→23:41)
[2021-05-22] MEDS: MethylPREDNISolone SOD SUCC 40 MG/ML VIAL IVP SCH ×4 (00:17→19:50)
[2021-05-22] MEDS: HYDROmorphone 2 MG/ML VIAL IVP PRN ×4 (00:17→23:41)
[2021-05-22 04:44] VITALS: BP 141/97
[2021-05-22] MEDS: ONDANSETRON HCL 4 MG/2 ML VIAL IVP PRN ×2 (06:32→10:32)
[2021-05-22] MEDS ORDERED: LORazepam 2 MG TABLET PO PRN (07:00)
[2021-05-22] MEDS: FAMOTIDINE 10 MG/ML 2 ML VIAL IVP SCH ×2 (08:04→19:50)
[2021-05-22] MEDS: OLANZapine 5 MG TABLET PO SCH ×2 (08:05→19:50)
[2021-05-22] MEDS: MULTIVITAMINS WITH MINERALS, THERAPEUTIC TABLET PO SCH (08:05)
[2021-05-22 08:41] VITALS: BP 150/96
[2021-05-22] MEDS ORDERED: LORazepam 2 MG TABLET PO SCH (09:00)
[2021-05-22 11:46] VITALS: BP 137/101
[2021-05-22 16:23] VITALS: BP 145/92
[2021-05-22 19:49] VITALS: BP 164/104
[2021-05-22] MEDS: ZOLPIDEM TARTRATE 5 MG TABLET PO PRN (19:51)
[2021-05-22] MEDS: FLUoxetine HCL 20 MG CAPSULE PO SCH (19:51)
[2021-05-22 23:59] VITALS: BP 150/99
[2021-05-23 04:01] VITALS: BP 158/113
[2021-05-23] MEDS: LORazepam 2 MG/ML VIAL IVP PRN ×2 (06:19→14:11)
[2021-05-23] MEDS: OLANZapine 5 MG TABLET PO SCH ×2 (08:25→19:52)
[2021-05-23] MEDS: MethylPREDNISolone SOD SUCC 40 MG/ML VIAL IVP SCH (08:25)
[2021-05-23] MEDS: HEPARIN SODIUM,PORCINE 5,000 UNITS/ML VIAL SQ SCH ×2 (08:26→16:31)
[2021-05-23] MEDS: FAMOTIDINE 10 MG/ML 2 ML VIAL IVP SCH ×2 (08:26→19:52)
[2021-05-23] MEDS: MULTIVITAMINS WITH MINERALS, THERAPEUTIC TABLET PO SCH (08:27)
[2021-05-23 12:00] VITALS: BP 153/98
[2021-05-23 16:00] VITALS: BP 141/92
[2021-05-23] MEDS: ZOLPIDEM TARTRATE 5 MG TABLET PO PRN (19:52)
[2021-05-23] MEDS: FLUoxetine HCL 20 MG CAPSULE PO SCH (19:52)
[2021-05-23] MEDS: HydrALAZINE HCL 20 MG/ML VIAL IVP PRN (19:52)
[2021-05-23 19:59] VITALS: BP 151/96
[2021-05-24] MEDS: LORazepam 2 MG/ML VIAL IVP PRN ×3 (00:14→16:43)
[2021-05-24] MEDS: HEPARIN SODIUM,PORCINE 5,000 UNITS/ML VIAL SQ SCH ×3 (00:14→16:42)
[2021-05-24 00:19] VITALS: BP 133/75
[2021-05-24 03:58] VITALS: BP 147/89
[2021-05-24 05:55] LABS: BASOPHILS % (AUTO) 0.1 % (0.0-2.0); EOSINOPHILS % (AUTO) 0.1 % (1.0-6.0); HEMATOCRIT 42.1 % (41-53); HEMOGLOBIN 14.3 g/dL (13.5-17.5); LYMPHOCYTES # (AUTO) 1.2 K/uL (1.0-4.8); LYMPHOCYTES % (AUTO) 11.2 % (22.0-44.0); MEAN CORPUSCULAR HEMOGLOBIN 31.7 pg (26.0-34.0); MEAN CORPUSCULAR HGB CONC 34.1 G/dL (31.0-37.0); MEAN CORPUSCULAR VOLUME 93 fL (80-100); MONOCYTES # (AUTO) 0.8 K/uL (0.1-1.0); MONOCYTES % (AUTO) 7.3 % (2.0-9.0); NEUTROPHILS # (AUTO) 8.5 K/uL (1.8-7.7); NEUTROPHILS % (AUTO) 81.3 % (40.0-70.0); PLATELET COUNT (AUTO) 189 K/uL (150-450); RED BLOOD CELL COUNT(AUTO) 4.52 MIL/uL (4.50-5.90); RED CELL DISTRIBUTION WIDTH 16.1 % (11.5-14.5)
[2021-05-24 06:06] LABS: CALCIUM, TOTAL 8.6 mg/dL (8.8-10.5); CHLORIDE 99 mmol/L (98-107); CREATININE 0.81 mg/dL (0.60-1.30); GLOMERULAR FILTR. RATE CALC > 60 mL/min (>60); GLUCOSE,RANDOM 87 mg/dL (70-110); POTASSIUM 4.3 mmol/L (3.5-5.1); SODIUM SERUM 140 mmol/L (136-145); UREA NITROGEN, BLOOD 25 mg/dL (7-18)
[2021-05-24 06:16] LABS: ANION GAP 0 mmol/L (8-16)
[2021-05-24 06:19] LABS: CARBON DIOXIDE 41 mmol/L (22-29)
[2021-05-24] MEDS ORDERED: LORazepam 1 MG TABLET PO PRN (07:00)
[2021-05-24 08:00] VITALS: BP 157/99
[2021-05-24] MEDS: HydrALAZINE HCL 20 MG/ML VIAL IVP PRN (08:52)
[2021-05-24] MEDS: OLANZapine 5 MG TABLET PO SCH ×2 (08:53→20:20)
[2021-05-24] MEDS: FAMOTIDINE 10 MG/ML 2 ML VIAL IVP SCH ×2 (08:53→20:22)
[2021-05-24] MEDS: MULTIVITAMINS WITH MINERALS, THERAPEUTIC TABLET PO SCH (08:55)
[2021-05-24] MEDS ORDERED: LORazepam 1 MG TABLET PO SCH (09:00)
[2021-05-24 12:00] VITALS: BP 111/59
[2021-05-24 16:00] VITALS: BP 120/62
[2021-05-24] MEDS: MELATONIN 3 MG TABLET PO PRN (20:20)
[2021-05-24] MEDS: FLUoxetine HCL 20 MG CAPSULE PO SCH (20:20)
[2021-05-25] VITALS: BP 113/76
[2021-05-25] MEDS: HEPARIN SODIUM,PORCINE 5,000 UNITS/ML VIAL SQ SCH ×2 (00:08→08:22)
[2021-05-25] MEDS: LORazepam 2 MG/ML VIAL IVP PRN ×2 (00:08→04:59)
[2021-05-25 04:00] VITALS: BP 137/100
[2021-05-25] MEDS ORDERED: LORazepam 1 MG TABLET PO PRN (07:00)
[2021-05-25 07:28] VITALS: BP 110/72
[2021-05-25] MEDS: MULTIVITAMINS WITH MINERALS, THERAPEUTIC TABLET PO SCH (08:21)
[2021-05-25] MEDS: OLANZapine 5 MG TABLET PO SCH (08:21)
[2021-05-25] MEDS: FAMOTIDINE 10 MG/ML 2 ML VIAL IVP SCH (08:22)
[2021-05-25 12:00] VITALS: BP 117/63
[2021-06-02] MEDS ORDERED: OLAN5TAB52 PO (14:39)
[2021-06-02] MEDS ORDERED: ALBU8HFA IH (14:39)
[2021-06-02] MEDS ORDERED: FLUT1BLS3 IH (14:39)
== END 2021-05-25 15:50 | disposition home or self-care (01) | DRG 140 ==
LOC: EMS 17:50 → 5S 05-21 00:39
PROVIDERS: ADMIT Internal Medicine; ATTEND Internal Medicine
DX: J44.1 Chronic obstructive pulmonary disease with (acute) exacerbation (principal); J96.21 Acute and chronic respiratory failure with hypoxia; E43 Unspecified severe protein-calorie malnutrition; F20.9 Schizophrenia, unspecified; I10 Essential (primary) hypertension; J96.22 Acute and chronic respiratory failure with hypercapnia; Y90.8 Blood alcohol level of 240 mg/100 ml or more; Z20.822 Contact with and (suspected) exposure to COVID-19; F17.210 Nicotine dependence, cigarettes, uncomplicated; F10.139 Alcohol abuse with withdrawal, unspecified; F10.129 Alcohol abuse with intoxication, unspecified; Z59.00 Homelessness unspecified; Z91.19 Patient's noncompliance with other medical treatment and regimen; Z99.81 Dependence on supplemental oxygen; Z88.6 Allergy status to analgesic agent; Z88.8 Allergy status to other drugs, medicaments and biological substances; Z93.0 Tracheostomy status; Z93.1 Gastrostomy status; Z68.1 Body mass index [BMI] 19.9 or less, adult; Z71.6 Tobacco abuse counseling
CPT/HCPCS: 36600; 71045; 71275; 73503; 80048; 80053; 82550; 82805; 83880; 84484; 85025; 85379; 87040; 93005; 94644; 99291; G0480; J0360; J1170; J1644; J1885; J2060; J2405; J2920; J2930; J3411; J3475; J3490; J3535; J7030; Q9967; 36415-L1; 36415-TC; J7611

== ENCOUNTER 2021-06-05 11:44 | Emergency (ER) | payer OTHER ==
[~2021-06-05] VITALS: Ht 172.7 cm; Wt 54.5 kg
[~2021-06-05 11:44] MED LIST changes: -FLUO20CA36 PO
[2021-06-05] MEDS ORDERED: ALBUTEROL SULFATE 5 MG/ML 20 ML NEB SOLN [BULK] NEB ONE (12:00)
[2021-06-05 12:34] LABS: BASOPHILS % (AUTO) 0.5 % (0.0-2.0); EOSINOPHILS % (AUTO) 1.1 % (1.0-6.0); HEMATOCRIT 42.5 % (41-53); HEMOGLOBIN 14.2 g/dL (13.5-17.5); LYMPHOCYTES # (AUTO) 1.8 K/uL (1.0-4.8); LYMPHOCYTES % (AUTO) 15.6 % (22.0-44.0); MEAN CORPUSCULAR HEMOGLOBIN 31.2 pg (26.0-34.0); MEAN CORPUSCULAR HGB CONC 33.4 G/dL (31.0-37.0); MEAN CORPUSCULAR VOLUME 93 fL (80-100); MONOCYTES # (AUTO) 0.5 K/uL (0.1-1.0); MONOCYTES % (AUTO) 4.5 % (2.0-9.0); NEUTROPHILS % (AUTO) 78.3 % (40.0-70.0); PLATELET COUNT (AUTO) 370 K/uL (150-450); RED BLOOD CELL COUNT(AUTO) 4.55 MIL/uL (4.50-5.90); RED CELL DISTRIBUTION WIDTH 17.1 % (11.5-14.5)
[2021-06-05] MEDS ORDERED: 0.9% SODIUM CHLORIDE 5 ML NEB SOLUTION NEB ONE (13:10)
[2021-06-05] MEDS ORDERED: LORazepam 2 MG/ML VIAL IVP ONE (13:30)
[2021-06-05] MEDS ORDERED: SODIUM CHLORIDE 0.9% 1,000 ML IV ONE (13:30)
[2021-06-05 13:58] LABS: ALANINE AMINOTRANSFERASE 98 U/L (12-78); ALBUMIN 3.1 g/dL (3.4-5.0); ALKALINE PHOSPHATASE 98 U/L (46-116); ANION GAP 10 mmol/L (8-16); ASPARTATE AMINOTRANSFERASE 49 U/L (15-37); BILIRUBIN,TOTAL 0.8 mg/dL (0.1-1.0); CALCIUM, TOTAL 7.8 mg/dL (8.8-10.5); CARBON DIOXIDE 35 mmol/L (22-29); CHLORIDE 102 mmol/L (98-107); CREATININE 0.74 mg/dL (0.60-1.30); GLOMERULAR FILTR. RATE CALC > 60 mL/min (>60); GLUCOSE,RANDOM 92 mg/dL (70-110); SODIUM SERUM 147 mmol/L (136-145); TOTAL PROTEIN, SERUM 6.2 g/dL (6.4-8.2); UREA NITROGEN, BLOOD 21 mg/dL (7-18)
[2021-06-05 13:59] LABS: POTASSIUM 2.8 mmol/L (3.5-5.1)
[2021-06-05] MEDS ORDERED: POTASSIUM CHLORIDE 20 MEQ ER TABLET PO ONE (14:15)
[2021-06-05] MEDS ORDERED: PredniSONE 20 MG TABLET PO ONE (14:15)
[2021-06-05 15:13] VITALS: BP 134/82
[2021-06-05] MEDS ORDERED: PRED-554 PO (15:41)
== END 2021-06-05 16:12 | disposition home or self-care (01) ==
LOC: EMS 11:47
DX: J44.1 Chronic obstructive pulmonary disease with (acute) exacerbation (principal); F10.129 Alcohol abuse with intoxication, unspecified; F41.9 Anxiety disorder, unspecified; E87.6 Hypokalemia; F17.210 Nicotine dependence, cigarettes, uncomplicated; I10 Essential (primary) hypertension; F20.9 Schizophrenia, unspecified; F19.90 Other psychoactive substance use, unspecified, uncomplicated; Z88.8 Allergy status to other drugs, medicaments and biological substances; Z88.5 Allergy status to narcotic agent; Y90.6 Blood alcohol level of 120-199 mg/100 ml
CPT/HCPCS: 36415; 71045; 80053; 85025; 93005; 94640; 96361; 96374; 99285; G0480; J2060; J7030; J7512; J7611

== ENCOUNTER 2021-06-27 22:42 | Emergency (ER) | payer OTHER ==
[~2021-06-27] VITALS: Ht 172.7 cm; Wt 54.5 kg
[2021-06-28] MEDS ORDERED: LORazepam 1 MG TABLET PO ONE
[2021-06-28] MEDS ORDERED: MethylPREDNISolone SOD SUCC 125 MG/2 ML VIAL IVP ONE (00:30)
[2021-06-28 01:08] LABS: BASOPHILS % (AUTO) 0.2 % (0.0-2.0); EOSINOPHILS % (AUTO) 0 % (1.0-6.0); HEMATOCRIT 45.4 % (41-53); HEMOGLOBIN 15.1 g/dL (13.5-17.5); LYMPHOCYTES # (AUTO) 0.6 K/uL (1.0-4.8); LYMPHOCYTES % (AUTO) 3.8 % (22.0-44.0); MEAN CORPUSCULAR HGB CONC 33.2 G/dL (31.0-37.0); MEAN CORPUSCULAR VOLUME 96 fL (80-100); MONOCYTES # (AUTO) 1.1 K/uL (0.1-1.0); MONOCYTES % (AUTO) 6.7 % (2.0-9.0); PLATELET COUNT (AUTO) 411 K/uL (150-450); RED BLOOD CELL COUNT(AUTO) 4.71 MIL/uL (4.50-5.90); RED CELL DISTRIBUTION WIDTH 15.2 % (11.5-14.5)
[2021-06-28 01:14] LABS: NEUTROPHILS % (AUTO) 89.3 % (40.0-70.0)
[2021-06-28 01:24] LABS: COVID AG,FIA SOURCE NASAL SWAB
[2021-06-28] MEDS ORDERED: ONDANSETRON HCL 4 MG/2 ML VIAL IVP ONE (01:30)
[2021-06-28] MEDS ORDERED: ACETAMINOPHEN 500 MG TABLET PO ONE (01:30)
[2021-06-28 01:43] LABS: B-TYPE NATRIURETIC PEPTIDE 31 pg/mL (0-100)
[2021-06-28] MEDS ORDERED: LEVALBUTEROL HCL 1.25 MG/0.5 ML NEB SOLUTION NEB ONE (02:15)
[2021-06-28 02:25] LABS: ANION GAP 19 mmol/L (8-16); CALCIUM, TOTAL 9.7 mg/dL (8.8-10.5); CARBON DIOXIDE 27 mmol/L (22-29); CHLORIDE 93 mmol/L (98-107); CREATININE 0.82 mg/dL (0.60-1.30); GLOMERULAR FILTR. RATE CALC > 60 mL/min (>60); GLUCOSE,RANDOM 103 mg/dL (70-110); POTASSIUM 4.1 mmol/L (3.5-5.1); SODIUM SERUM 139 mmol/L (136-145); UREA NITROGEN, BLOOD 11 mg/dL (7-18)
[2021-06-28 02:31] LABS: ALANINE AMINOTRANSFERASE 56 U/L (12-78); ALBUMIN 4.2 g/dL (3.4-5.0); ALKALINE PHOSPHATASE 284 U/L (46-116); ASPARTATE AMINOTRANSFERASE 47 U/L (15-37); BILIRUBIN,TOTAL 0.9 mg/dL (0.1-1.0); TOTAL PROTEIN, SERUM 9.5 g/dL (6.4-8.2)
[2021-06-28 02:34] LABS: ABG BASE EXCESS 2.9 mmol/L (-2.0-3.0); ABG CARBOXYHEMOGLOBIN 0.5 % (0.0-1.5); ABG METHEMOGLOBIN 0.3 % (0.0-1.5); ABG OXYGEN CONTENT 18.1 mL/dL (15.0-23.0); ABG OXYGEN SATURATION 91.8 % (95.0-98.0); ABG OXYHEMOGLOBIN 91.1 % (94.0-100.0); ABG TOTAL HEMOGLOBIN 14.1 G/dL (12.0-18.0); PO2, ARTERIAL BG 72.3 mmHg (92.0-100.0); SOURCE, BLOOD GAS ARTERIAL; TEMPERATURE, FAHRENHEIT, BG 98.6 FAHREN (96.0-98.6)
[2021-06-28 02:35] LABS: ABG PCO2 75 mmHg (35-45); O2 DEVICE,BLOOD GAS CANNULA (ROOM AIR); SITE, BLOOD GAS RT BRACHIAL
[2021-06-28] MEDS ORDERED: KETOROLAC TROMETHAMINE 30 MG/ML VIAL IVP ONE (06:00)
[2021-06-28 07:09] VITALS: BP 153/97
== END 2021-06-28 07:32 | disposition short-term general hospital (02) ==
LOC: EMS 22:44
DX: R06.89 Other abnormalities of breathing (principal); J44.1 Chronic obstructive pulmonary disease with (acute) exacerbation; R00.0 Tachycardia, unspecified; R07.9 Chest pain, unspecified; F41.9 Anxiety disorder, unspecified; F10.20 Alcohol dependence, uncomplicated; J45.909 Unspecified asthma, uncomplicated; I10 Essential (primary) hypertension; J18.9 Pneumonia, unspecified organism; F20.9 Schizophrenia, unspecified; F17.210 Nicotine dependence, cigarettes, uncomplicated; F15.90 Other stimulant use, unspecified, uncomplicated; Z88.8 Allergy status to other drugs, medicaments and biological substances; Z20.822 Contact with and (suspected) exposure to COVID-19
CPT/HCPCS: 36415; 71045; 80053; 82805; 83880; 84484; 85025; 85379; 87426; 93005; 94060; 94644; 94660; 96374; 96375; 99291; J1885; J2405; J2930; Z7610